=== PATIENT | male | born 1935 | race Caucasian/White ===

== ENCOUNTER → 2016-04-17 | Outpatient (CLI) | payer BC ==
[~2016-04-17] MED LIST: ACLI1AER3 INH; LEVA1.25 INH; NXM/40 PO; SILD100T PO; SILO8CAP PO; XPNIN INH
--- NOTE | 2016-04-17 12:29 | DIAGNOSTIC IMAGING REPORT ---
BILATERAL CAROTID DOPPLER STUDY HISTORY: Mental status change R41.3 Memory loss or impairment COMPARISON: 11/27/2013 TECHNIQUE: Real-time, grayscale, and color Doppler sonography of the carotid arteries was performed. Imaging reviewed in the transverse and longitudinal planes. All measurements were calculated based on NASCET criteria. FINDINGS: Antegrade flow is seen in the bilateral vertebral arteries. The brachial pressures are hemodynamically similar. Mild plaque formation bilaterally The peak systolic velocity within the right ICA is 86. The right systolic ratio is 1.0. The peak systolic velocity within the left ICA is 99. The left systolic ratio is 1.1. IMPRESSION: No hemodynamically significant stenosis seen within the carotid arteries. Mild plaque formation bilaterally Electronically signed by: Hood Zavala M.D. 04/17/2016 12:28 PM Dictated Date/Time: 04/17/2016 12:27 PM
== END | disposition home or self-care (01) ==
LOC: C.ULTR 11:38
PROVIDERS: ATTEND Nurse Practitioner
DX: R41.3 Other amnesia (principal); I65.23 Occlusion and stenosis of bilateral carotid arteries

== ENCOUNTER → 2016-04-18 | Outpatient (CLI) | payer BC ==
[2016-04-18 13:00] LABS: ALT/SGPT 19 U/L (12-78); AST/SGOT 18 U/L (15-37); BLOOD UREA NITROGEN 12 mg/dl (7-18); BUN/CREATININE RATIO 9.5 (10-20); CALCIUM 9.3 mg/dl (8.5-10.1); CARBON DIOXIDE 27 mmol/L (21-32); CHLORIDE 105 mmol/L (98-107); GLUCOSE 96 mg/dl (70-99); POTASSIUM 4.3 mmol/L (3.5-5.1); SODIUM 141 mmol/L (136-145)
[2016-04-18 13:02] LABS: ALB/GLOB RATIO 1.2 (0.9-2); ALKALINE PHOSPHATASE 62 U/L (45-117)
[2016-04-18 13:22] LABS: CHOLESTEROL/HDL RATIO 4.2; THYROID STIMULATING HORMONE 3.37 uIu/ml (0.300-4.500)
[2016-04-18 14:04] LABS: LYME DISEASE AB IGG NEG (NEG); LYME DISEASE AB IGM NEG (NEG)
== END | disposition home or self-care (01) ==
LOC: C.LABPVFM 10:20
PROVIDERS: ATTEND Nurse Practitioner
DX: R41.3 Other amnesia (principal); E55.9 Vitamin D deficiency, unspecified; E78.00 Pure hypercholesterolemia, unspecified

== ENCOUNTER → 2016-12-25 | Outpatient (CLI) | payer BC ==
[2016-12-25 18:14] LABS: BLOOD UREA NITROGEN 12 mg/dl (7-18); BUN/CREATININE RATIO 9.7 (10-20); CALCIUM 8.8 mg/dl (8.5-10.1); CARBON DIOXIDE 29 mmol/L (21-32); CHLORIDE 104 mmol/L (98-107); CREATININE 1.27 mg/dl (0.60-1.40); GLUCOSE 85 mg/dl (70-99); POTASSIUM 4.6 mmol/L (3.5-5.1); SODIUM 139 mmol/L (136-145)
== END | disposition home or self-care (01) ==
LOC: C.LABPVFM 13:33
PROVIDERS: ATTEND Nurse Practitioner
DX: R41.3 Other amnesia (principal); E55.9 Vitamin D deficiency, unspecified; R39.198 Other difficulties with micturition; J44.9 Chronic obstructive pulmonary disease, unspecified

== ENCOUNTER → 2017-05-22 | Day surgery (SDC) | payer BC ==
[~2017-05-22] VITALS: Ht 182.9 cm; Wt 84.0 kg
[~2017-05-22] MED LIST changes: +APOA1CAP; +CHOL1000 PO; +COEN150C PO; +DICY10CA12 PO; +DONE10TA12 PO; +FLUT1INH; +UMEC1INH INH
[2017-05-22 08:20] VITALS: BP 128/85; PULSE 64; TEMP 36.6; O2SAT 99; Ht 182.9 cm; Wt 84.0 kg
[2017-05-22 11:53] VITALS: BP 127/82; PULSE 68; TEMP 36.5; O2SAT 96
--- NOTE | 2017-05-30 10:32 | OPERATIVE REPORT ---
DATE OF OPERATION: 05/30/2017 PROCEDURE: Hydrogen breath test. INDICATION: The patient is having gas and bloating. DESCRIPTION OF PROCEDURE: The patient was brought to the medical treatment unit where he was administered 25 grams of lactose. Hydrogen levels and CO2 levels were measured from his exhaled breath at 60-minute intervals. His baseline hydrogen was 2, baseline CO2 was 3, CO2 level remained the same throughout the test. At 60 minutes, his hydrogen level was 16 and he was experiencing gas and cramps. At 120 minutes, his hydrogen level was 36, and at 180 minutes, it was 38 and he was having gas and cramps through the duration of that time. IMPRESSION: The patient's elevation in hydrogen and symptoms are diagnostic of LACTOSE INTOLERANCE. I attest to the content of the Intraoperative Record and any orders documented therein. Any exception s are noted below.
== END | disposition home or self-care (01) ==
LOC: C.MTU 08:09
PROVIDERS: ATTEND Internal Medicine Gastroenterology
DX: R14.3 Flatulence (principal); R14.0 Abdominal distension (gaseous)

== ENCOUNTER → 2017-05-23 | Outpatient (CLI) | payer BC ==
[~2017-05-23] MED LIST changes: -ACLI1AER3 INH; -LEVA1.25 INH; -SILD100T PO; -SILO8CAP PO
[2017-05-23 13:03] LABS: BLOOD UREA NITROGEN 14 mg/dl (7-18); CALCIUM 8.9 mg/dl (8.5-10.1); CARBON DIOXIDE 29 mmol/L (21-32); CREATININE 1.33 mg/dl (0.60-1.40); GLUCOSE 99 mg/dl (70-99); POTASSIUM 4.1 mmol/L (3.5-5.1); SODIUM 140 mmol/L (136-145)
== END | disposition home or self-care (01) ==
LOC: C.LABPVFM 11:02
PROVIDERS: ATTEND Nurse Practitioner
DX: R41.3 Other amnesia (principal)

== ENCOUNTER 2018-07-13 04:35 | Observation (INO) ==
--- OUTSIDE RECORDS SUMMARY | 2018-07-13 04:39 | External Medical Summary | Continuity of Care Document ---
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) Hypothyroidism (244.9) (E03.9) Laceration of finger (883.0) (S61.219A) Dementia (294.20) (F03.90) Asthma (493.90) (J45.909) Erectile dysfunction (607.84) (N52.9) Elevated glucose (790.29) (R73.09) Agitation (307.9) (R45.1) [place] (dyspnea on exertion) (786.09) (R06.09) GERD without esophagitis (530.81) (K21.9) Elevated cholesterol (272.0) (E78.00) Chest pain (786.50) (R07.9) Excessive gas (787.3) (R14.3) History of squamous cell carcinoma in situ of skin (V13.89) (Z86.008) Personal history of malignant melanoma of skin (V10.82) (Z85 .820) History of basal cell carcinoma (V10.83) (Z85.828) Actinic keratosis (702.0) (L57.0) Neoplasm of uncertain behavior of skin (238.2) (D48.5) Slowing of urinary stream (788.62) (R39.198) Chronic reflux esophagitis (530.11) (K21.0) Encounter for immunization (V03.89) (Z23) Vitamin D deficiency (268.9) (E55.9) Anemia (285.9) (D64.9) Chronic obstructive pulmonary disease (496) (J44.9) Sleep related hypoxia (327.24) (G47.34) Elevated serum creatinine (790.99) (R79.89) Cervicalgia (723.1) (M54.2) Allergies and Adverse Reactions Albuterol Sulfate NEBU (Allergy) Reactio n: Shortness of breath Levalbuterol HCl NEBU (Allergy) Onset: 24-Apr-2012 Status: Denied Medications NexIUM 20 MG Oral Capsule Delayed Release; TAKE 1 CAPSULE ON CE DAILY. Refills: 0 Levalbuterol HCl - 1.25 MG/3ML Inhalatio n Nebulization Solution; USE 1 VIAL 4 TIMES DAILY VIA NEBULIZER DX:493.9 SHON Norwood Start: 15-Apr-2012 Quantity: 525 Refills: 0 Levothyroxine Sodium 75 MCG Oral Tablet; TAKE 1 TABLET DAILY. NENO Galvan Start: 22-Mar-2018 Quantity: 30 Refills: 5 Trelegy Ellipta 100-62.5-25 MCG/INH Inha lation Aerosol Powder Breath Activated; 1 puff daily as needed. SHON Norwood Start: 26-Feb-2018 Quantity: 1 Refills: 0 Sertraline HCl - 50 MG Oral Tablet; TAKE 1 TABLET BY M OUT DAILY NENO Galvan Start: 22-May-2018 Quantity: 30 Refills: 5 Sildenafil Citrate 100 MG Oral Tablet; TAKE DIRECTED. NENO Polk Start: 18-Jan-2018 Quantity: 6 Refills: 1 Vitamin D 1000 UNIT Oral Tablet; TAKE 1 TABLET DAILY. Start: 29-Feb-2016 Quantity: 30 Refills: 5 Donepezil HCl - 10 MG Oral Tablet; Take 1 tablet by [facility] every day. NENO Galvan Start: 30-Aug-2015 Quantity: 30 Refills: 5 Procedures TSH With Reflex to T4 Date: 12-Jun-2018 History of Back Surgery Status: Complete d History of Foot Repair Status: Completed History of Knee Surgery Status: Complete d History of Kidney Surgery Status: Comple bonita Immunizations Pneumococcal polysaccharide vaccine, 23 valent On: 02-Feb-20 01 Pneumococcal polysaccharide vaccine, 23 valent On: 26-May-19 06 0:00 Influenza On: 28-Nov-2011 Lot #: [id number], [employer] Influenza On: 04-Dec-2012 11:48 Lot #: [id number], [employer] Pneumococcal polysaccharide vaccine, 23 valent On: 05-Dec-19 13 11:50 Lot #: [id number], [employer] Fluzone High-Dose Intramuscular Suspension On: 30-Dec-2013 1 5:39 Lot #: [id number], [employer] [id number] intramuscular suspension On: 03-Nov-2014 11:54 Lot #: [id number], Other (add annotation) Fluzone High-Dose Intramuscular Suspension On: 01-Dec-2014 1 1:15 Lot #: [id number], [employer] Fluzone High-Dose Intramuscular Suspension On: 29-Feb-2016 1 5:36 Lot #: [id number], [employer] Fluzone High-Dose Intramuscular Suspension On: 25-Dec-2016 1 3:30 Lot #: [id number], [employer] Tdap (Adacel) On: 26-Oct-2017 12:22 Lot #: [id number], [employer] Fluzone High-Dose Intramuscular Suspension On: 17-Jan-2018 15 :07 Lot #: [id number], [employer] Family History Unknown Family Member Family history of Heart Disease (V17.49) Status: Active Comments: Family History Family history of Cancer Status: Active Comments: Famil y History Family history of Prostate Cancer (V16.42) Status: Active Comments: Family History Brother Family history of Prostate Cancer (V16.42) Status: Active Social History - Smoking Status Former smoker Plan of Treatment Planned Encounters Appointment; Bryce Norwood PA-C Start: 26-Feb-2019 13:00 Re quest Planned Observations Planned Goals not documented Results No Known Results Results not documented Encounters Appointment; Felipa Galvan CRNP 22-Mar-2018 14:30 Encounter Diagnosis: Problem not documented Appointment; Bryce Norwood PA-C 26-Feb-2018 13:45 Encounter Diagnosis: Problem not documented Appointment; Felipa Galvan CRNP 17-Jan-2018 14:30 Encounter Diagnosis: Problem not documented Appointment; Felipa Galvan CRNP 26-Oct-2017 11:30 Encounter Diagnosis: Problem not documented Appointment; Igor Treadwell M.D. 19-Oct-2017 11:15 Encounter Diagnosis: Problem not documented Appointment; Gloria Lambert CRNP 22-Aug-2017 14:00 Encounter Diagnosis: Problem not documented Appointment; Glenys Judge M.D. 03-Jul-2017 14:00 Encounter Diagnosis: Problem not documented Appointment; Felipa Galvan CRNP 25-May-2017 13:00 Encounter Diagnosis: Problem not documented Appointment; Bryce Norwood PA-C 10-Jan-2017 13:00 Encounter Diagnosis: Problem not documented Appointment; Felipa Galvan CRNP 25-Dec-2016 13:00 Encounter Diagnosis: Problem not documented Appointment; Hood John M.D. 25-Dec-2016 10:30 Encounter Diagnosis: Problem not documented Appointment; Bryce Norwood PA-C 29-Nov-2016 14:00 Encounter Diagnosis: Problem not documented Appointment; Sam Smith M.D. 27-Nov-2016 13:45 Encounter Diagnosis: Problem not documented Appointment; Felipa Galvan CRNP 31-Aug-2016 11:00 Encounter Diagnosis: Problem not documented Appointment; Bryce Norwood PA-C 26-Feb-2019 13:00 Encounter Diagnosis: Problem not documented
[2018-07-13] MEDS ORDERED: FAMOTIDINE 20MG/5ML IV PUSH IV STA (05:01)
[2018-07-13 05:16] LABS: Basophils # (auto) 0.06 K/uL (0-0.2); Basophils % (auto) 0.9 %; Eosinophils # (auto) 0.06 K/uL (0-0.5); Eosinophils % (auto) 0.9 %; Hematocrit (blood only) 37.7 % (42-52); Hemoglobin 12.8 g/dL (14.0-18.0); Immature Granulocytes # (auto) 0.02 K/uL (0.00-0.02); Immature Granulocytes % (auto) 0.3 %; Lymphocytes # (auto) 1.09 K/uL (1.2-3.4); Lymphocytes % (auto) 15.9 %; Mean Corpuscular Volume 96.9 fL (80-100); Mean Platelet Volume 11.7 fL (7.4-10.4); Monocytes # (auto) 1.08 K/uL (0.11-0.59); Monocytes % (auto) 15.8 %; Neutrophils # (auto) 4.54 K/uL (1.4-6.5); Neutrophils % (auto) 66.2 %; Platelet Count 165 K/uL (130-400); RDW Coefficient of Variation 13.5 % (11.5-14.5); RDW Standard Deviation 47.2 fL (36.4-46.3); Red Blood Count 3.89 M/uL (4.7-6.1); White Blood Count 6.85 K/uL (4.8-10.8)
[2018-07-13 05:28] LABS: Partial Thromboplastin Ratio 0.9; Partial Thromboplastin Time 25.5 Seconds (21.0-31.0); Prothrombin Time 10.3 Seconds (9.0-12.0)
[2018-07-13 05:33] LABS: Alanine Aminotransferase 34 U/L (12-78); Albumin Level 3.8 gm/dl (3.4-5.0); Aspartate Aminotransferase 47 U/L (15-37); BUN Creatinine Ratio 18.7 (10-20); Bilirubin Direct 0.1 mg/dl (0-0.2); Blood Urea Nitrogen 24 mg/dl (7-18); Calcium 8.5 mg/dl (8.5-10.1); Carbon Dioxide 29 mmol/L (21-32); Chloride 100 mmol/L (98-107); Est GFR (African American) 58.2; Est GFR (Non-African American) 50.2; Glucose 101 mg/dl (70-99); Potassium 3.8 mmol/L (3.5-5.1); Sodium 132 mmol/L (136-145)
[2018-07-13 05:38] LABS: Alkaline Phosphatase 62 U/L (45-117); Bilirubin,Total 0.5 mg/dl (0.2-1); Total Protein 7.1 gm/dl (6.4-8.2); Troponin I < 0.015 ng/ml (0-0.045)
[2018-07-13] MEDS ORDERED: ONDANSETRON INJ 2 MG/ML 2 ML VIAL IV STA (05:42)
[2018-07-13 05:44] LABS: Appearance Urine Clear (Clear); Bilirubin Urine Negative (Negative); Blood Urine Negative (Negative); Color Urine Yellow; Glucose Urine UA Negative (Negative); Ketones Urine Negative (Negative); Leukocyte Esterase Urine Negative (Negative); Nitrite Urine Negative (Negative); Protein Urine Negative (Negative); Urobilinogen Urine Negative (Negative)
[2018-07-13] MEDS ORDERED: IOVERSOL 100ml IV PRN (06:08)
[2018-07-13] MEDS ORDERED: PANTOprazole 80 MG in DEXTROSE 5% 100 ML IV ONE (07:15)
--- NOTE | 2018-07-13 07:51 | CT Scan Report ---
CT OF THE CHEST WITH IV CONTRAST CLINICAL HISTORY: left chest trauma, bruising COMPARISON STUDY: Chest CT November 27, 2013. Chest radiograph January 07, 2018. TECHNIQUE: Following IV administration of 94 mL of Optiray-320, helical axial images of the chest we re obtained. Sagittal and coronal reconstructions were viewed as well as maximal intensity projectio ns on an independent 3-D workstation. Automated exposure control was utilized for the study. A dose lowering technique was utilized adhering to the principles of ALARA. CT DOSE: 726.73 mGy.cm FINDINGS: There is no evidence for traumatic injury to the thoracic aorta. The heart is mildly enlar ged. There is moderate coronary artery calcification. Moderate circumferential wall thickening of the mid to distal thoracic esophagus is noted. A small hiatal hernia is noted. There is no pneumothorax or pleural effusion. Lungs are suboptimally assessed given motion. There is mild subpleural reticulat ion. No acute rib or thoracic spine fracture is identified. No pulmonary contusion is present. IMPRESSION: 1. No acute traumatic findings within the chest. 2. Circumferential wall thickening of the esophagus which favors esophagitis. Small hiatal hernia. Electronically signed by: Magan Yoon M.D. 07/13/2018 7:50 AM
--- NOTE | 2018-07-13 07:57 | CT Scan Report ---
CT OF THE ABDOMEN AND PELVIS WITH CONTRAST CLINICAL HISTORY: trauma, GI bleed COMPARISON STUDY: CT of the abdomen and pelvis January 07, 2018. TECHNIQUE: Following IV administration of 94 mL of Optiray-320, axial images of the abdomen and pelvi s were obtained from the lung bases to the proximal femurs. Images were reviewed in the axial, sagitt al, and coronal planes. IV contrast was administered without complication. Automated exposure contro l was utilized for the study. A dose lowering technique was utilized adhering to the principles of A TERESA. FINDINGS: No hemoperitoneum or pneumoperitoneum is present. There are multiple hepatic cysts. The spl een, adrenal glands, kidneys and pancreas are unremarkable. There is no biliary or pancreatic ductal dilatation. A 4.3 x 3.7 cm infrarenal abdominal aortic aneurysm is similar to CT of January 07, 2018. There is no evidence for rupture. Sensitivity for detection of mucosal lesions is diminished given C T technique. This colonic diverticulosis without evidence for acute diverticulitis. There is no evide nce for a bowel obstruction. There are no acute pelvic or lumbar spine fractures. IMPRESSION: 1. No acute findings within the abdomen or pelvis. 2. No significant change in a 4.3 x 3.7 cm infrarenal abdominal aortic aneurysm since CT of December 112017. No rupture. 3. Colonic diverticulosis without evidence for acute diverticulitis. Electronically signed by: Magan Yoon M.D. 07/13/2018 7:55 AM
--- NOTE | 2018-07-13 08:48 | Emergency Department Note ---
Entered by Julian Lind acting as a scribe for ED Provider Note Name: Balaji Garrison Age: 83 Arrives Via: Informant: Patient CC: Bloody vomit HPI: A male arrives for evaluation of an episode of bloody vomit occurring 2 hours ago. The patient states he was on his tractor 5 days ago when it rolled over on top of him. He notes he has some bruises from that incident. The patient states he woke up last night and started vomiting dark vomit. The patient states he was vomiting for 2 hours and it was black right away. He notes he had a couple episodes of black stool for the past couple days. The patient states he takes Nexium. The patient denies abdominal pain, hitting his head, drinking alc ohol, taking blood thinners, headaches, neck pain, and taking ibuprofen or Aleve. ROS: See above HPI for pertinent positives & negatives. A total of 10 systems reviewed and were otherwise negative. Past Medical History: Diverticulitis Past Surgical History: No pertinent surgical history Family History: Non-contributory family history Social History: Former smoker Home Medications: See below. Allergies Lactose Physical: Vitals: BP: 162/69. P: 63. R: 18. T: 97.5. O2: 96 Exam: GENERAL: Patient is mildly anxious appearing and in minimal distress. EYES: No scleral icterus, unremarkable pupils. ENT: Mucous membranes moist, no nasal congestion. NECK: No masses appreciated, no meningismus, trachea is midline. RESPIRATORY: No dyspnea. Clear to auscultation and equal bilaterally. No wheeze, no rhonchi. CARDIOVASCULAR: Regular rate and rhythm. No murmurs, rubs, gallops appreciated. GASTROINTESTINAL: Abdomen soft, non-tender, no peritonitis. Bowel sounds positive. No masses appreciated. BACK: No midline tenderness, no CVA tenderness RECTAL: Dark stool. Heme positive. No gross blood. EXTREMITIES: Normal motion all extremities, no cyanosis, no edema. NEUROLOGIC: Alert and oriented, no acute motor or sensory deficits, no focal weakness, cranial nerves grossly intact. SKIN: No rash, no jaundice, no diaphoresis. Many areas of aging bruising. Worse over bilateral legs. ED Course: Prior Medical Record, Triage/Nursing Notes, Medications, Allergies reviewed by Me Vital Signs: reviewed and remarkable for wnl Labs: Reviewed and remarkable for elevated BUN Interventions: Saline Lock, Pepcid 20mg IV, Protonix 80mg IV Imaging: [facility] Radiologist interpretation reviewed by me: "CT CHEST With Contrast: Esophageal wall thickening suggesting esophagitis. Normal caliber thoracic aorta and main pulmonary artery. Mild cardiomegaly. Coronary artery atherosclerosis. No pericardial effusion. No airspace consolidation, pleural effusion, or pneumothorax. No acute osseous findings. CT ABDOMEN & PELVIS With Contrast: Hepatic cysts. Gallbladder, spleen, pancreas, and adrenal glands are unremarkable. No hydronephrosis. Aortoiliac atherosclerosis with infrarenal abdominal aortic aneurysm measuring 3.1 x 4.1 cm. Normal appendix. No bowel obstruction. Colonic diverticulosis without acute diverticulitis. Urinary bladder and prostate are unremarkable. No acute osseous findings. Radiologist: Cole Morrison M.D." Reassessments/Times: 0454: The patient was evaluated in room B8, and a complete history and physical examination were performed. 0542: The patient is becoming more nauseous. 0715: I spoke to the hospitalist. He will evaluate the patient for further management. Blood pressure: Elevated - Referred to PCP - Depue to be Situation. Normal. Disposition: Hospitalization Differentials: Etiologies such as diverticulosis, AVM, coagulopathy, colitis, inflammatory bowel disease, malignancy, Neva-Bneder tear, esophagitis, peptic ulcer disease, variceal bleed, gastritis, epistaxis, fissure, hemorrhoids, as well as others were entertained. Medical Decision Making: Pleasant 83 yr old male with mild dementia who vomited black blood this evening. Notes a few days black stools. BUN elevated. HGB OK. VItals OK. No abdomina l TTP, however with recent trauma and vomiting blood felt CT imaging necessary and given bruising left chest will get imaging of ribs as well with ct. Fortunately no evidence acute trauma on imaging. There is esophagitis noted. I suspect this is upper GI bleed. Rectal exam with dark brown mildly heme positive stool without significant blood. Hemodynamically stable. This is not a good candidate for close outpatient monitoring given mild dementia, age, and significant distance to ED. Impression: Acute Upper GI Bleed Esophagitis Contusion of Multiple Sites Bo Ortiz MD The scribe's documentation has been prepared under my direction and personally reviewed by me in its entirety. I confirm that the note above accurately reflects all work, treatment, procedures, and medical decision making performed by me. Impression & Plan Acute upper GI bleed, Esophagitis, Contusion of multiple sites Past Med/Surg History Medical History Diverticulitis (Acute) Family History Other No pertinent family history Social History Preferred Language: Cook Islander Feels Safe at Home: Yes Smoking Status: Former smoker Results & Data Vital Signs Vital Signs - 24 hr 07/13/18 04:41 07/13/18 06:15 07/13/18 06:59 Temperature 36.4 C L Temperature Source Oral Sepsis Recent Fever Within 48 Hours No Sepsis Action Taken by Nursing No Action Required Pulse Rate 63 Pulse Rate [Right Finger] 58 L Respiratory Rate 18 18 16 Respiratory Effort / Characteristics Non-Labored Non-Labored Respiratory Depth Normal Normal Respiratory Pattern Regular Blood Pressure 162/69 H Blood Pressure [Left Arm] 142/60 H 119/70 Blood Pressure Mean 100 Blood Pressure Mean [Left Arm] 87 86 Blood Pressure Position [Left Arm] Sitting Pulse Oximetry 96 93 95 Oxygen Delivery Method Room Air Room Air Room Air 07/13/18 08:36 Temperature Temperature Source Sepsis Recent Fever Within 48 Hours Sepsis Action Taken by Nursing Pulse Rate Pulse Rate [Right Finger] 64 Respiratory Rate 16 Respiratory Effort / Characteristics Respiratory Depth Respiratory Pattern Blood Pressure Blood Pressure [Left Arm] 162/74 H Blood Pressure Mean Blood Pressure Mean [Left Arm] 103 Blood Pressure Position [Left Arm] Pulse Oximetry 97 Oxygen Delivery Method Room Air Laboratory Data Result diagrams: 07/13/18 05:07 07/13/18 05:07 Lab Results 07/13/18 07/13/18 07/13/18 Range/Units 05:07 05:07 05:07 WBC 6.85 (4.8-10.8) K/uL RBC 3.89 L (4.7-6.1) M/uL Hgb 12.8 L (14.0-18.0) g/dL Hct 37.7 L (42-52) % MCV 96.9 (80-100) fL MCH 32.9 (25-34) pg MCHC 34.0 (32-36) g/dL RDW Std Deviation 47.2 H (36.4-46.3) fL RDW Coeff of Bek[place] 13.5 (11.5-14.5) % Plt Count 165 (130-400) K/uL MPV 11.7 H (7.4-10.4) fL Immature Gran % (Auto) 0.3 % Neut % (Auto) 66.2 % Lymph % (Auto) 15.9 % [place] % (Auto) 15.8 % Eos % (Auto) 0.9 % Baso % (Auto) 0.9 % Immature Gran # (Auto) 0.02 (0.00-0.02) K/uL Neut # (Auto) 4.54 (1.4-6.5) K/uL Lymph # (Auto) 1.09 L (1.2-3.4) K/uL [place] # (Auto) 1.08 H (0.11-0.59) K/uL Eos # (Auto) 0.06 (0-0.5) K/uL Baso # (Auto) 0.06 (0-0.2) K/uL PT 10.3 (9.0-12.0) Seconds INR 1.0 (0.9-1.1) APTT 25.5 (21.0-31.0) Seconds PTT Ratio 0.9 Sodium 132 L (136-145) mmol/L Potassium 3.8 (3.5-5.1) mmol/L Chloride 100 (98-107) mmol/L Carbon Dioxide 29 (21-32) mmol/L Anion Gap 3.0 (3-11) BUN 24 H (7-18) mg/dl Creatinine 1.29 (0.6-1.4) mg/dl Est Cr Clr Drug Dosing 46.0 ml/min Est GFR ( Amer) 58.2 Est GFR (Non-Af Amer) 50.2 BUN/Creatinine Ratio 18.7 (10-20) Glucose 101 H (70-99) mg/dl Calcium 8.5 (8.5-10.1) mg/dl Total Bilirubin 0.5 (0.2-1) mg/dl Direct Bilirubin 0.1 (0-0.2) mg/dl AST 47 H (15-37) U/L ALT 34 (12-78) U/L Alkaline Phosphatase 62 (45-117) U/L Troponin I < 0.015 (0-0.045) ng/ml Total Protein 7.1 (6.4-8.2) gm/dl Albumin 3.8 (3.4-5.0) gm/dl Lipase 265 (73-393) U/L Urine Color Urine Appearance (Clear) Urine pH (4.5-7.5) Ur Specific [place] (1.000-1.030) Urine Protein (Negative) Urine Glucose (UA) (Negative) Urine Ketones (Negative) Urine Blood (Negative) Urine Nitrite (Negative) Urine Bilirubin (Negative) Urine Urobilinogen (Negative) Ur Leukocyte Esterase (Negative) 07/13/18 Range/Units 05:19 WBC (4.8-10.8) K/uL RBC (4.7-6.1) M/uL Hgb (14.0-18.0) g/dL Hct (42-52) % MCV (80-100) fL MCH (25-34) pg MCHC (32-36) g/dL RDW Std Deviation (36.4-46.3) fL RDW Coeff of Bekah (11.5-14.5) % Plt Count (130-400) K/uL MPV (7.4-10.4) fL Immature Gran % (Auto) % Neut % (Auto) % Lymph % (Auto) % [place] % (Auto) % Eos % (Auto) % Baso % (Auto) % Immature Gran # (Auto) (0.00-0.02) K/uL Neut # (Auto) (1.4-6.5) K/uL Lymph # (Auto) (1.2-3.4) K/uL [place] # (Auto) (0.11-0.59) K/uL Eos # (Auto) (0-0.5) K/uL Baso # (Auto) (0-0.2) K/uL PT (9.0-12.0) Seconds INR (0.9-1.1) APTT (21.0-31.0) Seconds PTT Ratio Sodium (136-145) mmol/L Potassium (3.5-5.1) mmol/L Chloride (98-107) mmol/L Carbon Dioxide (21-32) mmol/L Anion Gap (3-11) BUN (7-18) mg/dl Creatinine (0.6-1.4) mg/dl Est Cr Clr Drug Dosing ml/min Est GFR ( Amer) Est GFR (Non-Af Amer) BUN/Creatinine Ratio (10-20) Glucose (70-99) mg/dl Calcium (8.5-10.1) mg/dl Total Bilirubin (0.2-1) mg/dl Direct Bilirubin (0-0.2) mg/dl AST (15-37) U/L ALT (12-78) U/L Alkaline Phosphatase (45-117) U/L Troponin I (0-0.045) ng/ml Total Protein (6.4-8.2) gm/dl Albumin (3.4-5.0) gm/dl Lipase (73-393) U/L Urine Color Yellow Urine Appearance Clear (Clear) Urine pH 7.0 (4.5-7.5) Ur Specific [place] 1.010 (1.000-1.030) Urine Protein Negative (Negative) Urine Glucose (UA) Negative (Negative) Urine Ketones Negative (Negative) Urine Blood Negative (Negative) Urine Nitrite Negative (Negative) Urine Bilirubin Negative (Negative) Urine Urobilinogen Negative (Negative) Ur Leukocyte Esterase Negative (Negative) Administered Medications Ioversol (Optiray 320 100ml) 94 ml IV ONCE PRN PRN Reason: Interaction Checking Stop: 07/17/18 06:07 Last Admin: 07/13/18 06:08 Dose: 94 ml Documented by: [id number] Discontinued Medications Famotidine (Pepcid 20mg Iv Push) 20 mg IV ONE STA Stop: 07/13/18 05:02 Last Admin: 07/13/18 05:25 Dose: 20 mg Documented by: [id number] Pantoprazole Sodium 80 mg/ (Dextrose) 120 mls @ 480 mls/hr IV NOW ONE Stop: 07/13/18 07:29 Last Admin: 07/13/18 08:38 Dose: 480 mls/hr Documented by: [id number] Ondansetron HCl (Zofran) 4 mg IV NOW STA Stop: 07/13/18 05:43 Last Admin: 07/13/18 05:50 Dose: 4 mg Documented by: [id number] Discharge Plan Visit Data Chief Complaint: GI Assessment Stated Complaint: SPITTING UP BLOOD, BLACK ED Provider: Bo Ortiz Discharge Problem: Acute upper GI bleed, Esophagitis, Contusion of multiple sites Forms Stand Alone Forms: [facility] Prescriptions Prescriptions: No Action donepezil 10 mg tablet 10 mg PO DAILY RF: 0 sildenafil 100 mg tablet 100 mg PO DIRECTED PRN (Reason: Sexual Activity) RF: 0 esomeprazole magnesium 40 mg capsule,delayed release(DR/EC) 40 mg PO DAILY RF: 0 levalbuterol HCl 1.25 mg/3 mL solution for nebulization 3 ml Inhalation QID PRN (Reason: Shortness Of Breath) RF: 0 sertraline 50 mg tablet 50 mg PO DAILY RF: 0 levalbuterol tartrate [Xopenex HFA] 45 mcg/actuation Hfa Aerosol Inhaler 2 inh INHALATION Q4 PRN (Reason: Shortness Of Breath) RF: 0 cholecalciferol (vitamin D3) [Vitamin D3] 1,000 unit Tablet 1,000 unit PO DAILY RF: 0 Breo Ellipta 200-25 mcg/dose Blister With Device 1 inh INHALATION DAILY PRN (Reason: Shortness Of Breath Or Wheezing) RF: 0 The scribe's documentation has been prepared under my direction and personally reviewed by me in its entirety. I confirm that the note above accurately reflects all work, treatment, procedures, and medical decision making performed by me.
[2018-07-13] MEDS ORDERED: LEVALBUTEROL 0.31MG/3 ML VIAL NEB PRN (09:41)
[2018-07-13] MEDS ORDERED: ACETAMINOPHEN 325 MG TAB PO PRN (09:41)
[2018-07-13] MEDS: DONEPEZIL HCL 10 MG TAB PO SCH (10:16)
[2018-07-13] MEDS: SERTRALINE HCL 50 MG TABLET PO SCH (10:16)
--- NOTE | 2018-07-13 13:54 | History & Physical Report ---
Date of Service July 13, 2018 Assessment & Plan (1) Acute upper GI bleed: High suspicion given his coffee ground emesis and melena. Hgb was 12.8 on admission with baseline ~14. CT chest on 07/13 showed esophagitis. - Trend hgb - Monitor emesis and BMs - PPI gtt - GI consult (2) Contusion of multiple sites: Hit his left leg in a mower accident. Able to bear weight. - Monitor bruising (3) COPD (chronic obstructive pulmonary disease): No shortness of breath. No wheezing. - Continue home meds - Xopenex PRN (4) Dementia: No exact diagnosis. Seems to have moderate dementia with trouble recalling events from even a week ago, but is very pleasant, alert, and conversant. - Monitor (5) Diverticulitis: Prior episode in 02/2018. No lower bright red blood, no abdominal pain. Low concern for acute issue. - Monitor (6) DVT prophylaxis: SCDs - Low risk per admission calculator & he is bleeding, so no chemoprophylaxis History of Present Illness Primary Care Provider: NENO Nowak 83-year-old male with a history of dementia, COPD who presents with likely upper GI bleed. The patient's moderate dementia limits his history somewhat, but his is able to corroborate some of his history. Per the patient, approximately 1 week ago he had 1-2 melanotic stools. The patient cannot really describe volume of the stools, or whether this was a single episode of versus over several days. As best as I can ascertain, his stools return to normal for several days, then became melenic again 3 to 4 days ago. At approximately 1 AM this morning, the patient experienced several episodes of coffee-ground emesis. After several episodes, his emesis became clear again. This part is confirmed by the as well. Due to the coffee-ground emesis, the patient and his presented to the emergency department. At present the patient feels back to baseline. He denies any lightheadedness, dizziness, syncope, chest pain, abdominal pain, nausea, vomiting, shortness of breath, fevers, chills, melena, dysuria, polyuria, or other symptoms. In the emergency department, the ED provider found fecal occult stool. Allergies Allergy/AdvReac Type Severity Reaction Status Date / Time lactose Allergy Unknown Unverified 07/13/18 05:58 Home Medications Home Medications Medication Instructions Recorded Confirmed Type cholecalciferol (vitamin D3) 1,000 unit PO DAILY 01/07/18 07/13/18 History [Vitamin D3] donepezil 10 mg PO DAILY 01/07/18 07/13/18 History esomeprazole magnesium 40 mg PO DAILY 01/07/18 07/13/18 History fluticasone furoate-vilanterol 1 inh INHALATION DAILY PRN 01/07/18 07/13/18 History [Breo Ellipta] levalbuterol HCl 3 ml INHALATION QID PRN 01/07/18 07/13/18 History levalbuterol tartrate [Xopenex HFA] 2 inh INHALATION Q4 PRN 01/07/18 07/13/18 History sertraline 50 mg PO DAILY 01/07/18 07/13/18 History sildenafil 100 mg PO DIRECTED PRN 01/07/18 07/13/18 History Past Med/Surg History Medical History COPD (chronic obstructive pulmonary disease) Dementia Kidney stone Diverticulitis (Acute) Family History Mother Stroke Social History Preferred Language: Yi Communication Ability: Effective 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 Beliefs That Will Affect Care: None Current Living Situation: Spouse Other Information That Helps Us Care for You: No Feels Safe at Home: Yes Safety Concerns: Feels Safe At This Time Smoking Status: Former smoker Tobacco Type: smokeless tobacco Do You Dip or Chew Tobacco: Yes Hx Alcohol Use: No Hx Substance Use: No Review of Systems Review of Systems: All systems reviewed & are unremarkable except as noted in HPI & below Physical Exam Constitutional: WD/WN, vitals as above + acute distress and cooperative Eyes: EOM intact bilaterally; no conjunctival abnormality ENMT: external ear and nose normal, oropharynx normal Neck: trachea midline, no thyromegaly normal visual inspection Respiratory: normal respiratory effort, lungs clear to auscultation no respiratory distress Cardiovascular: RRR, no murmur, no edema Gastrointestinal (Abdomen): Inspection/Auscultation: abdomen normal to inspection; abdomen not distended Musculoskeletal: no cyanosis or clubbing, extremities motor strength 5/5 Skin: no rashes, warm and dry Neurologic: moves all extremities and awake Psychiatric: Orientation: alert, oriented to person and cooperative Cognition: + recent memory not intact Judgement: + limited judgement Results & Data Vital Signs (Past 12 Hours) Vital Signs Temp Pulse Pulse Resp BP BP BP 07/13/18 09:48 36.4 C L 60 16 137/71 07/13/18 09:41 36.3 C L 52 L 16 151/73 H 07/13/18 08:36 64 16 162/74 H 07/13/18 06:59 16 119/70 07/13/18 06:15 58 L 18 142/60 H 07/13/18 04:41 36.4 C L 63 18 162/69 H Pulse Ox 07/13/18 09:48 07/13/18 09:41 100 07/13/18 08:36 97 07/13/18 06:59 95 07/13/18 06:15 93 07/13/18 04:41 96
--- NOTE | 2018-07-13 14:01 | Consultation Report ---
DATE OF CONSULTATION: 07/13/2018 GASTROENTEROLOGY CONSULT NOTE REFERRED BY: Dr. Nixon Smith. I was asked by Dr. Smith to consult on this gentleman for evaluation of possible GI bleeding. HISTORY OF PRESENT ILLNESS: The patient is an 83-year-old who was involved in a tractor accident. He had rolled over his tractor several days ago. He has had some bruising, but he presented to the Emergency Room with reports of possible dark stools. He denies any vomiting, though there was report in one of the Emergency Room notes about hematemesis, but he denies this. He denies any nosebleeds. He states that he had some dark stools and he was found to have heme-positive stool in the ER. He denies any previous issues with GI bleeding. He states that he has not been taking any aspirin products. He denies any dysphagia. He has had some left-sided abdominal pain mainly by his ribs and he relates this to happening after his tractor accident. He has a previous history of diverticulitis, but he feels that he has not had any issues with this recently. PAST MEDICAL HISTORY: I reviewed his medical records and his past medical history and his past medical history is significant for what is already mentioned. MEDICATIONS: His medications at home include numerous vitamins, donepezil, Nexium, inhalers p.r.n., sertraline. ALLERGIES: HE STATES HE IS ALLERGIC TO LACTOSE. FAMILY HISTORY: Denies any family history of gastrointestinal disease. SOCIAL HISTORY: Significant for being a former smoker and he does not drink alcohol. REVIEW OF SYSTEMS: As above, otherwise he denies any change in vision or hearing. He denies any history of seizures. He has had no heat or cold intolerance. He denies any dysuria. He denies any hematuria. He has had no recent chest pain, shortness of breath or productive cough. He denies any history of jaundice. He denies any joint swelling except for some bruising from his recent tractor accident. He denies any headaches or change in mental status. He has had no change in mood. He denies any fevers. PHYSICAL EXAMINATION: GENERAL: Reveals a pleasant gentleman in no distress. VITAL SIGNS: Most recent blood pressure is 137/71, pulse is 60, temperature is 36.4. SKIN: Anicteric. HEENT: Eyes show anicteric sclerae. Mouth is clear of lesions. NECK: Supple, no adenopathy. CHEST: Has some scattered rhonchi, but is otherwise clear. HEART: Regular. ABDOMEN: Soft with good bowel sounds. There is no organomegaly, masses, rebound tenderness noted. EXTREMITIES: Warm with good distal pulses. He has some bruising as expected from his injury. NEUROLOGIC: He is alert and oriented x3 and neurologically grossly intact. LABORATORY DATA: Show a recent hemoglobin of 12.8, platelet count of 165,000, white blood cell count of 6.8. CT of the abdomen and pelvis revealed no acute findings. IMPRESSION: An 83-year-old gentleman with some dark stools that were heme positive and recent injury from lawn tractor accident. I recommend following his hemoglobin. He does not appear to be having an aggressive GI bleed and I do not think at this point endoscopy is indicated. Follow his hemoglobin, keep him on his proton pump inhibitor and advance diet. If his hemoglobin remains stable, I would consider discharge from a GI perspective. JOE
[2018-07-14 00:45] VITALS: O2SAT 98
[2018-07-14] MEDS ORDERED: LORazepam 0.5 MG TAB PO STA (01:21)
[2018-07-14] MEDS ORDERED: OLANZAPINE ZYDIS 5 MG ORALLY DIS. TAB PO ONE (01:30)
[2018-07-14 06:38] LABS: BUN Creatinine Ratio 13.1 (10-20); Calcium 8.6 mg/dl (8.5-10.1); Est GFR (African American) 53.6; Est GFR (Non-African American) 46.3; Magnesium 2.3 mg/dl (1.8-2.4)
[2018-07-14] MEDS ORDERED: HALOPERIDOL LACTATE 5 MG/ML 1 ML VIAL IM STA (06:38)
[2018-07-14] MEDS ORDERED: HALOPERIDOL LACTATE 5 MG/ML 1 ML VIAL ONE (06:39)
[2018-07-14 08:13] VITALS: PULSE 90; TEMP 97.7
[2018-07-14] MEDS: SERTRALINE HCL 50 MG TABLET PO SCH (08:18)
[2018-07-14] MEDS: DONEPEZIL HCL 10 MG TAB PO SCH (08:18)
[2018-07-14 10:00] LABS: Hematocrit (blood only) 36.3 % (42-52); Hemoglobin 11.9 g/dL (14.0-18.0); Mean Corpuscular Hgb Conc 32.8 g/dL (32-36); Mean Corpuscular Volume 97.1 fL (80-100); Mean Platelet Volume 11.6 fL (7.4-10.4); Platelet Count 149 K/uL (130-400); RDW Coefficient of Variation 13.6 % (11.5-14.5); RDW Standard Deviation 47.9 fL (36.4-46.3); Red Blood Count 3.74 M/uL (4.7-6.1); White Blood Count 4.45 K/uL (4.8-10.8)
[2018-07-14 11:15] VITALS: BP 165/84
--- NOTE | 2018-07-14 18:39 | Discharge Summary ---
Date of Service July 14, 2018 Admission HPI Per Admitting Provider 83-year-old male with a history of dementia, COPD who presents with likely upper GI bleed. The patient's moderate dementia limits his history somewhat, but his is able to corroborate some of his history. Per the patient, approximately 1 week ago he had 1-2 melanotic stools. The patient cannot really describe volume of the stools, or whether this was a single episode of versus over several days. As best as I can ascertain, his stools return to normal for several days, then became melenic again 3 to 4 days ago. At approximately 1 AM this morning, the patient experienced several episodes of coffee-ground emesis. After several episodes, his emesis became clear again. This part is confirmed by the as well. Due to the coffee-ground emesis, the patient and his presented to the emergency department. At present the patient feels back to baseline. He denies any lightheadedness, dizziness, syncope, chest pain, abdominal pain, nausea, vomiting, shortness of breath, fevers, chills, melena, dysuria, polyuria, or other symptoms. In the emergency department, the ED provider found fecal occult stool. Principal Diagnosis Possible upper GI bleed Discharge Exam Constitutional WD/WN, vitals as above + acute distress and cooperative Eyes EOM intact bilaterally; no conjunctival abnormality ENMT external ear and nose normal, oropharynx normal Neck trachea midline, no thyromegaly normal visual inspection Respiratory normal respiratory effort, lungs clear to auscultation no respiratory distress Cardiovascular RRR, no murmur, no edema Gastrointestinal (Abdomen) Inspection/Auscultation: abdomen normal to inspection; abdomen not distended Musculoskeletal no cyanosis or clubbing, extremities motor strength 5/5 Skin no rashes, warm and dry Neurologic moves all extremities and awake Psychiatric Orientation: alert, oriented to person and cooperative Cognition: + recent memory not intact Judgement: + limited judgement Discharge Data Allergies Allergy/AdvReac Type Severity Reaction Status Date / Time lactose Allergy Unknown Unverified 07/13/18 05:58 Consultations 07/13/18 07:14 ED Decision to Admit Stat 07/13/18 09:41 Consult Gastroenterology Routine Ordered Studies 07/13/18 05:01 CT abd pelvis IV con only Urgent CT chest w con Urgent Hospital Course (1) Acute upper GI bleed: High suspicion given his coffee ground emesis and melena. Hgb was 12.8 on admission with baseline ~14. CT chest on 07/13 showed esophagitis. - Hemoglobin stayed fairly stable with drop only from 13 -> 12 in the 24 hours he was here. No further emesis or melena. GI saw patient and felt EGD was not needed. Patient decided to leave on 07/14. (2) Contusion of multiple sites: Hit his left leg in a mower accident. Able to bear weight. - Monitor bruising (3) COPD (chronic obstructive pulmonary disease): No shortness of breath. No wheezing. - Continue home meds - Xopenex PRN (4) Dementia: No exact diagnosis. Seems to have moderate dementia with trouble recalling events from even a week ago, but is very pleasant, alert, and conversant. - He had major issues with sundowning. Per , he is not willing to have testing because he is afraid someone will take his license. At times, he becomes "agitated" per her. He is also very private and will not allow anyone to come to the home. I expressed my significant concerns about his situation, though she did not feel there was much she could do in this regards. I will have our office contact [facility] about his license as he still drives. (5) Diverticulitis: Prior episode in 02/2018. No lower bright red blood, no abdominal pain. Low concern for acute issue. - Monitor (6) DVT prophylaxis: SCDs - Low risk per admission calculator & he is bleeding, so no chemoprophylaxis Total Time Total Time Spent Total Time Spent (In Minutes): 25 Total Time Includes: Examination of the Patient, Discharge Planning and Other Discharge Plan Discharge Items Patient Disposition: Home - Self-Care Reason For Visit: UPPER GI BLEED Discharge Diagnosis: Possible GI bleeding Discharge Goals: Decrease discomfort and Diagnostic testing Activity: Resume your previous activity Non-emergency contact: Primary Care Provider Call non-emergency contact if: your symptoms worsen, your pain is not controlled and your temperature is above 100.5 Follow-up/Referrals: Felipa Cabrales CRNP [Primary Care Provider] - Diet: Regular Addtl Provider Instructions: Mr. Garrison, You were admitted for a possible bleed in your stomach or intestine. You threw up coffee ground type material and also had dark stools which are both concerning for this. Your blood counts stayed mostly stable (down 1 mg/dL from 13 to 12), and the GI doctors did not think you needed a scope (camera) to look in the stomach. On the day of discharge, you wanted to leave the hospital, and we discharged you. Please follow up with Ms. Cabrales and have her check your blood count. Lindsay may refer you to a GI doctor as an outpatient for this scope (EGD). Please take your Nexium (esomeprazole) 2 times per day for the next month. Avoid ibuprofen, Motrin, Aleve, naproxen, or other "NSAID" medications. Do not drink any alcohol as it can irritate the lining of your stomach. Please return to the hospital with any more black, tarry stools, any throwing u p, and lightheadedness or dizziness. Prescriptions: Continued donepezil 10 mg tablet 10 mg PO DAILY RF: 0 sildenafil 100 mg tablet 100 mg PO DIRECTED PRN (Reason: Sexual Activity) RF: 0 levalbuterol HCl 1.25 mg/3 mL solution for nebulization 3 ml Inhalation QID PRN (Reason: Shortness Of Breath) RF: 0 sertraline 50 mg tablet 50 mg PO DAILY RF: 0 levalbuterol tartrate [Xopenex HFA] 45 mcg/actuation Hfa Aerosol Inhaler 2 inh INHALATION Q4 PRN (Reason: Shortness Of Breath) RF: 0 cholecalciferol (vitamin D3) [Vitamin D3] 1,000 unit Tablet 1,000 unit PO DAILY RF: 0 Breo Ellipta 200-25 mcg/dose Blister With Device 1 inh INHALATION DAILY PRN (Reason: Shortness Of Breath Or Wheezing) RF: 0 Changed esomeprazole magnesium 40 mg capsule,delayed release(DR/EC) 40 mg PO BID Qty: 0 RF: 0 Stand-Alone Forms: [facility] Discharge Orders: Discharge Order (Routine); Ordered 07/14/18 Ordered By: Nixon Smith Admission Data Admit Date/Time: 07/13/18 08:12 Attending Provider: Nixon Smith Admit Provider: Nixon Smith Primary Care Provider: Felipa Cabrales Other Providers: Nixon Smith ; Asad Brown Service: Medical Other Interventions: Discharge Summary Assessment (RN) Last Done: 07/14/18 11:12 DC Date/Time DO NOT enter until pt leaves facility: 07/14/18 11:38
== END 2018-07-14 11:38 | disposition home or self-care (01) ==
LOC: 4E 04:35 → ED 04:35 → 4E 09:19
DX: F03.90 Unspecified dementia, unspecified severity, without behavioral disturbance, psychotic disturbance, mood disturbance, and anxiety; J44.9 Chronic obstructive pulmonary disease, unspecified; K20.9 Esophagitis, unspecified; W30.9XXA Contact with unspecified agricultural machinery, initial encounter; K92.2 Gastrointestinal hemorrhage, unspecified; S80.12XA Contusion of left lower leg, initial encounter; Z79.899 Other long term (current) drug therapy; F17.220 Nicotine dependence, chewing tobacco, uncomplicated; K57.92 Diverticulitis of intestine, part unspecified, without perforation or abscess without bleeding; S80.11XA Contusion of right lower leg, initial encounter

== ENCOUNTER 2021-10-14 00:39 | Inpatient (IN) ==
[2021-10-14 01:11] LABS: Basophils # (auto) 0.04 K/uL (0-0.2); Basophils % (auto) 0.8 %; Eosinophils # (auto) 0.03 K/uL (0-0.50); Eosinophils % (auto) 0.6 %; Hematocrit (blood only) 35.5 % (40.1-51.0); Hemoglobin 11.4 g/dl (14.0-18.0); Immature Granulocytes # (auto) 0.03 K/uL (0.00-0.02); Immature Granulocytes % (auto) 0.6 %; Lymphocytes % (auto) 26.5 %; Mean Corpuscular Hemoglobin 31.5 pg (25.0-34.0); Mean Corpuscular Hgb Conc 32.1 g/dL (32.0-36.0); Mean Corpuscular Volume 98.1 fL (80.0-100.0); Mean Platelet Volume 11.8 fL (9.4-12.4); Monocytes # (auto) 0.84 K/uL (0.24-0.82); Monocytes % (auto) 15.9 %; Neutrophils # (auto) 2.95 K/uL (1.4-6.5); Neutrophils % (auto) 55.6 %; Platelet Count 175 K/uL (130-400); RDW Coefficient of Variation 13.8 % (11.5-14.5); Red Blood Count 3.62 M/uL (4.63-6.08); White Blood Count 5.29 K/ul (4.8-10.8)
--- NOTE | 2021-10-14 01:19 | Emergency Department Note ---
Impression & Plan Dementia ADMIT ED Provider Note HPI: The patient is an 86-year-old gentleman with history of dementia, presents the emergency department with agitation. Patient reportedly was becoming more agitated at home recently, I was able to confirm this with his on the alejandra ne, Kristi, who tells me that the patient was yelling today and exhibiting some paranoia about her "stealing his things". Patient was yelling at her outside the house and the neighbors called police. Police then had the patient brought to the ED for further assessment. Patient's tells me she does not feel safe with him at home. Patient is in no acute distress on arrival, he is not aggressive on my exam. ROS: -Psychiatric: Agitation, dementia *10 point review systems was conducted and is otherwise negative unless stated above *Outpatient medications and allergy history reviewed PE: General: Alert, NAD HEENT: Normocephalic, atraumatic Eyes: Extraocular eye movement is intact, no scleral erythema Pulmonary: Clear to auscultation bilaterally, no wheezing Cardio: Regular rate and rhythm GI: Abdomen is soft, nontender : No suprapubic tenderness MSK: No evidence of trauma or malformation of the extremities, no edema Skin: No evidence of rash Neuro: Alert, no focal deficits Psychiatric: Cooperative CT HEAD: No evidence of acute intracranial pathology. Mild nonspecific white matter changes. Bilateral lens replacements. Comparison made to prior head CT from September 26, 2018. Radiologist: Amanda Easley MD Medical Decision Making: Patient presented to the emergency department with some agitation, police were contacted as the patient was screaming at his from the front yard. He was brought to the ED for further assessment, I did discuss the patient's presentation with his , Kristi, on the phone, she tells me that she does not feel safe with him at home at this time and she does not feel that she can handle his agitated spells which she tells me have been worsening over the past several weeks. Patient is unable to provide me with any history on arrival, he is not agitated or aggressive with staff. He was given a dose of Seroquel which is a home medication to aid with his sleep. CT imaging of the head was obtained that shows no evidence of any acute intracranial process, lab work does not show any critical findings. Patient was medically cleared, discussed with case dulce parisi and given that the patient does not have underlying psychiatric pathology he is determined to be more appropriate for medical admission for placement in a retirement with a dementia unit. [facility] hospitalist service was consulted for the admission and the patient was admitted in stable condition for further care. Diagnosis: 1. Dementia with behavioral disturbance 2. Agitation Disposition: Admission Hood Burroughs DO Emergency Medicine Past Med/Surg History Medical History (Updated 10/14/21 @ 03:13 by Hood Burroughs DO) COPD (chronic obstructive pulmonary disease) Dementia Diverticulitis Kidney stone Surgical History H/O knee surgery History of kidney surgery Previous back surgery S/P foot surgery Family History Mother Stroke Brother Prostate cancer Denies family history of Ovarian cancer Myocardial infarction Breast cancer Colorectal cancer Social History Smoking Status: Never smoker Hx Alcohol Use: No Hx Substance Use: No Preferred Language: Kittitian Communication Ability: Effective Ramp Supervisor Required: No Beliefs That Will Affect Care: None Current Living Situation: Spouse current occupational status: retired Feels Safe at Home: Yes Dental Care, Regularly: No Seatbelt Use: always Sunscreen Use: No Assistive Devices: Glasses Allergies Allergies Allergy/AdvReac Type Severity Reaction Status Date / Time albuterol Allergy Unknown short of Verified 10/14/21 01:25 breath lactose Allergy Unknown Verified 10/14/21 01:25 Home Meds Home Medications Medication Instructions Recorded Confirmed cholecalciferol (vitamin D3) 25 1,000 unit PO DAILY 01/07/18 10/14/21 mcg (1,000 unit) tablet (Vitamin D3) esomeprazole magnesium 40 mg 40 mg PO DAILY 10/31/18 10/14/21 capsule,delayed release Previous Rx's Medication Instructions Recorded memantine 28 mg capsule 28 mg PO DAILY #90 ea 11/17/20 sprinkle,extended release 24hr levalbuterol HCl 1.25 mg/3 mL 1.25 mg (3 mL) inhalation QID PRN 03/14/21 solution for nebulization Shortness Of Breath #180 mL levothyroxine 75 mcg tablet 75 mcg PO DAILY #30 tabs 06/14/21 fluticasone fur. 100 mcg-umeclid 1 inh inhalation DAILY #60 ea 06/17/21 62.5 mcg-vilant 25 mcg inhalat.powder (Trelegy Ellipta) sertraline 100 mg tablet See Rx Instructions .Route 08/25/21 .COMPLEX #30 tabs rivastigmine 4.6 mg/24 hour 4.6 mg transdermal DAILY #30 ea 09/20/21 transdermal patch quetiapine 25 mg tablet 25 mg PO .COMPLEX 30 days #30 tabs 10/07/21 Results & Data (ED) Vital Signs Vital Signs - 24 hr 10/14/21 01:06 10/14/21 01:06 Temperature 37 C Temperature Source Oral Pulse Rate 103 H Pulse Rate [Right Finger] 103 H Respiratory Rate 20 20 Respiratory Effort / Characteristics Non-Labored Spontaneous Non-Labored Spontaneous Respiratory Depth Normal Normal Respiratory Pattern Regular Regular Blood Pressure 155/86 H Blood Pressure [Right Arm] 155/86 H Blood Pressure Mean 109 Blood Pressure Mean [Right Arm] 109 Pulse Oximetry 94 94 Oxygen Delivery Method Room Air Room Air Sepsis Recent Fever Within 48 Hours No Sepsis New/Unexplained Change in Mental Status No Sepsis Action Taken by Nursing No Action Required Laboratory Data Result diagrams: 10/14/21 00:51 10/14/21 00:51 Lab Results 10/14/21 10/14/21 10/14/21 Range/Units 00:49 00:51 00:51 WBC 5.29 (4.8-10.8) K/ul RBC 3.62 L (4.63-6.08) M/uL Hgb 11.4 L (14.0-18.0) g/dl Hct 35.5 L (40.1-51.0) % MCV 98.1 (80.0-100.0) fL MCH 31.5 (25.0-34.0) pg MCHC 32.1 (32.0-36.0) g/dL RDW Std Deviation 50.0 H (36.4-46.3) fL RDW Coeff of Bek[place] 13.8 (11.5-14.5) % Plt Count 175 (130-400) K/uL MPV 11.8 (9.4-12.4) fL Immature Gran % (Auto) 0.6 % Neut % (Auto) 55.6 % Lymph % (Auto) 26.5 % [place] % (Auto) 15.9 % Eos % (Auto) 0.6 % Baso % (Auto) 0.8 % Neut # (Auto) 2.95 (1.4-6.5) K/uL Lymph # (Auto) 1.40 (1.2-3.4) K/uL [place] # (Auto) 0.84 H (0.24-0.82) K/uL Eos # (Auto) 0.03 (0-0.50) K/uL Baso # (Auto) 0.04 (0-0.2) K/uL Immature Gran # (Auto) 0.03 H (0.00-0.02) K/uL Sodium 138 (136-145) mmol/L Potassium 4.3 (3.5-5.1) mmol/L Chloride 105 (98-107) mmol/L Carbon Dioxide 23 (21-32) mmol/L Anion Gap 10 (3-11) BUN 23 (6-23) mg/dl Creatinine 1.82 H (0.6-1.4) mg/dl Est Cr Clr Drug Dosing Not Reportable Est GFR ( Amer) 37.6 ml/min Est GFR (Non-Af Amer) 32.4 ml/min BUN/Creatinine Ratio 12.6 (10-20) Glucose 106 H (70-99(Fasting)) mg/dl Calcium 9.1 (8.5-10.1) mg/dl Total Bilirubin 0.4 (0.2-1.0) mg/dl AST 43 H (13-39) U/L ALT 16 (7-52) U/L Alkaline Phosphatase 86 (34-104) U/L Total Protein 7.5 (6.0-8.3) gm/dl Albumin 4.6 (3.4-5.0) gm/dl Globulin 2.9 (2.5-4.0) gm/dl Albumin/Globulin Ratio 1.6 (0.9-2) TSH (0.300-4.500) uIu/ml Free T4 (0.61-1.60) ng/dl Urine Color Urine Appearance (Clear) Urine pH (4.5-7.5) Ur Specific [place] (1.000-1.030) Urine Protein (Negative) Urine Glucose (UA) (Negative) Urine Ketones (Negative) Urine Blood (Negative) Urine Nitrite (Negative) Urine Bilirubin (Negative) Urine Urobilinogen (Negative) Ur Leukocyte Esterase (Negative) Urine WBC (Auto) (0-5) /hpf Urine RBC (Auto) (0-4) /hpf U Hyaline Cast (Auto) (0-5) /lpf U Epithel Cells (Auto) (0-5) /lpf Urine Bacteria (Auto) (Negative) Salicylates (3.0-30) mg/dl Urine Opiates Screen (Neg) Ur Methadone, Qual (Neg) Acetaminophen (10-30) ug/ml Urine Barbiturates (Neg) Ur Phencyclidine (PCP) (Neg) U Amphetamin/Meth Scrn (Neg) MDMA (Ecstasy) Screen (Neg) U Benzodiazepines Scrn (Neg) Ur Cocaine Metabolite (Neg) U Marijuana (THC) Screen (Neg) Ethyl Alcohol mg/dL (<10.0) mg/dl SARS-CoV-2, RNA, NAAT NEGATIVE (NEGATIVE) 10/14/21 10/14/21 10/14/21 Range/Units 00:51 00:51 00:51 WBC (4.8-10.8) K/ul RBC (4.63-6.08) M/uL Hgb (14.0-18.0) g/dl Hct (40.1-51.0) % MCV (80.0-100.0) fL MCH (25.0-34.0) pg MCHC (32.0-36.0) g/dL RDW Std Deviation (36.4-46.3) fL RDW Coeff of Bekah (11.5-14.5) % Plt Count (130-400) K/uL MPV (9.4-12.4) fL Immature Gran % (Auto) % Neut % (Auto) % Lymph % (Auto) % [place] % (Auto) % Eos % (Auto) % Baso % (Auto) % Neut # (Auto) (1.4-6.5) K/uL Lymph # (Auto) (1.2-3.4) K/uL [place] # (Auto) (0.24-0.82) K/uL Eos # (Auto) (0-0.50) K/uL Baso # (Auto) (0-0.2) K/uL Immature Gran # (Auto) (0.00-0.02) K/uL Sodium (136-145) mmol/L Potassium (3.5-5.1) mmol/L Chloride (98-107) mmol/L Carbon Dioxide (21-32) mmol/L Anion Gap (3-11) BUN (6-23) mg/dl Creatinine (0.6-1.4) mg/dl Est Cr Clr Drug Dosing Est GFR ( Amer) ml/min Est GFR (Non-Af Amer) ml/min BUN/Creatinine Ratio (10-20) Glucose (70-99(Fasting)) mg/dl Calcium (8.5-10.1) mg/dl Total Bilirubin (0.2-1.0) mg/dl AST (13-39) U/L ALT (7-52) U/L Alkaline Phosphatase (34-104) U/L Total Protein (6.0-8.3) gm/dl Albumin (3.4-5.0) gm/dl Globulin (2.5-4.0) gm/dl Albumin/Globulin Ratio (0.9-2) TSH 5.353 H (0.300-4.500) uIu/ml Free T4 0.60 L (0.61-1.60) ng/dl Urine Color Urine Appearance (Clear) Urine pH (4.5-7.5) Ur Specific [place] (1.000-1.030) Urine Protein (Negative) Urine Glucose (UA) (Negative) Urine Ketones (Negative) Urine Blood (Negative) Urine Nitrite (Negative) Urine Bilirubin (Negative) Urine Urobilinogen (Negative) Ur Leukocyte Esterase (Negative) Urine WBC (Auto) (0-5) /hpf Urine RBC (Auto) (0-4) /hpf U Hyaline Cast (Auto) (0-5) /lpf U Epithel Cells (Auto) (0-5) /lpf Urine Bacteria (Auto) (Negative) Salicylates < 3.0 L (3.0-30) mg/dl Urine Opiates Screen (Neg) Ur Methadone, Qual (Neg) Acetaminophen < 3 L (10-30) ug/ml Urine Barbiturates (Neg) Ur Phencyclidine (PCP) (Neg) U Amphetamin/Meth Scrn (Neg) MDMA (Ecstasy) Screen (Neg) U Benzodiazepines Scrn (Neg) Ur Cocaine Metabolite (Neg) U Marijuana (THC) Screen (Neg) Ethyl Alcohol mg/dL < 10.0 (<10.0) mg/dl SARS-CoV-2, RNA, NAAT (NEGATIVE) 10/14/21 10/14/21 Range/Units 01:30 01:30 WBC (4.8-10.8) K/ul RBC (4.63-6.08) M/uL Hgb (14.0-18.0) g/dl Hct (40.1-51.0) % MCV (80.0-100.0) fL MCH (25.0-34.0) pg MCHC (32.0-36.0) g/dL RDW Std Deviation (36.4-46.3) fL RDW Coeff of Bekah (11.5-14.5) % Plt Count (130-400) K/uL MPV (9.4-12.4) fL Immature Gran % (Auto) % Neut % (Auto) % Lymph % (Auto) % [place] % (Auto) % Eos % (Auto) % Baso % (Auto) % Neut # (Auto) (1.4-6.5) K/uL Lymph # (Auto) (1.2-3.4) K/uL [place] # (Auto) (0.24-0.82) K/uL Eos # (Auto) (0-0.50) K/uL Baso # (Auto) (0-0.2) K/uL Immature Gran # (Auto) (0.00-0.02) K/uL Sodium (136-145) mmol/L Potassium (3.5-5.1) mmol/L Chloride (98-107) mmol/L Carbon Dioxide (21-32) mmol/L Anion Gap (3-11) BUN (6-23) mg/dl Creatinine (0.6-1.4) mg/dl Est Cr Clr Drug Dosing Est GFR ( Amer) ml/min Est GFR (Non-Af Amer) ml/min BUN/Creatinine Ratio (10-20) Glucose (70-99(Fasting)) mg/dl Calcium (8.5-10.1) mg/dl Total Bilirubin (0.2-1.0) mg/dl AST (13-39) U/L ALT (7-52) U/L Alkaline Phosphatase (34-104) U/L Total Protein (6.0-8.3) gm/dl Albumin (3.4-5.0) gm/dl Globulin (2.5-4.0) gm/dl Albumin/Globulin Ratio (0.9-2) TSH (0.300-4.500) uIu/ml Free T4 (0.61-1.60) ng/dl Urine Color Dark Yellow Urine Appearance Clear (Clear) Urine pH 6.5 (4.5-7.5) Ur Specific [place] 1.023 (1.000-1.030) Urine Protein Trace H (Negative) Urine Glucose (UA) Negative (Negative) Urine Ketones Trace H (Negative) Urine Blood Negative (Negative) Urine Nitrite Negative (Negative) Urine Bilirubin Negative (Negative) Urine Urobilinogen Negative (Negative) Ur Leukocyte Esterase Trace H (Negative) Urine WBC (Auto) 1-5 (0-5) /hpf Urine RBC (Auto) 0-4 (0-4) /hpf U Hyaline Cast (Auto) 5-10 H (0-5) /lpf U Epithel Cells (Auto) 10-20 H (0-5) /lpf Urine Bacteria (Auto) Negative (Negative) Salicylates (3.0-30) mg/dl Urine Opiates Screen Neg (Neg) Ur Methadone, Qual Neg (Neg) Acetaminophen (10-30) ug/ml Urine Barbiturates Neg (Neg) Ur Phencyclidine (PCP) Neg (Neg) U Amphetamin/Meth Scrn Neg (Neg) MDMA (Ecstasy) Screen Neg (Neg) U Benzodiazepines Scrn Neg (Neg) Ur Cocaine Metabolite Neg (Neg) U Marijuana (THC) Screen Neg (Neg) Ethyl Alcohol mg/dL (<10.0) mg/dl SARS-CoV-2, RNA, NAAT (NEGATIVE) Discharge Plan Visit Data Chief Complaint: Mental Health Evaluation Stated Complaint: DELUSIONS, ALTERED ED Provider: Hood Burroughs Discharge Problem: Dementia Patient Disposition: Admitted As Inpatient Forms Stand Alone Forms: [facility], Suicide Prevention Resources Prescriptions Prescriptions: No Action levalbuterol HCl 1.25 mg/3 mL solution for nebulization 1.25 mg Inhalation QID PRN (Reason: Shortness Of Breath) Qty: 180 5RF levothyroxine 75 mcg tablet 75 mcg PO DAILY Qty: 30 3RF sertraline 100 mg tablet See Rx Instructions .ROUTE .COMPLEX Qty: 30 5RF Dose Instruction: TAKE 1 TABLET BY MOUTH DAILY. Rx Instructions: TAKE 1 TABLET BY MOUTH DAILY. rivastigmine 4.6 mg/24 hour patch 24 hour 4.6 mg transdermal DAILY Qty: 30 2RF quetiapine 25 mg tablet 25 mg PO .COMPLEX 30 Days Qty: 30 2RF Rx Instructions: 25 mg orally evening; esomeprazole magnesium 40 mg capsule,delayed release(DR/EC) 40 mg PO DAILY memantine 28 mg capsule,sprinkle,ER 24hr 28 mg PO DAILY Qty: 90 3RF Trelegy Ellipta 100-62.5-25 mcg blister with device 1 inh INH DAILY Qty: 60 3RF cholecalciferol (vitamin D3) [Vitamin D3] 1,000 unit Tablet 1,000 unit PO DAILY Referrals Referrals: Elvia Titus MD [Primary Care Provider] -
[2021-10-14 01:44] LABS: Alanine Aminotransferase 16 U/L (7-52); Albumin Globulin Ratio 1.6 (0.9-2); Albumin Level 4.6 gm/dl (3.4-5.0); Alkaline Phosphatase 86 U/L (34-104); Anion Gap 10 (3-11); Aspartate Aminotransferase 43 U/L (13-39); BUN Creatinine Ratio 12.6 (10-20); Bilirubin,Total 0.4 mg/dl (0.2-1.0); Blood Urea Nitrogen 23 mg/dl (6-23); Calcium 9.1 mg/dl (8.5-10.1); Carbon Dioxide 23 mmol/L (21-32); Chloride 105 mmol/L (98-107); Est GFR (African American) 37.6 ml/min; Est GFR (Non-African American) 32.4 ml/min; Globulin 2.9 gm/dl (2.5-4.0); Glucose 106 mg/dl (70-99(Fasting)); Potassium 4.3 mmol/L (3.5-5.1); Sodium 138 mmol/L (136-145); Total Protein 7.5 gm/dl (6.0-8.3)
[2021-10-14 01:53] LABS: Thyroid Stimulating Hormone 5.353 uIu/ml (0.300-4.500)
[2021-10-14 01:58] LABS: Appearance Urine Clear (Clear); Bacteria Urine Automated Negative (Negative); Bilirubin Urine Negative (Negative); Blood Urine Negative (Negative); Color Urine Dark Yellow; Glucose Urine UA Negative (Negative); Ketones Urine Trace (Negative); Leukocyte Esterase Urine Trace (Negative); Nitrite Urine Negative (Negative); Protein Urine Trace (Negative); RBC Urine Automated 0-4 /hpf (0-4); Specific Gravity Urine 1.023 (1.000-1.030); Urobilinogen Urine Negative (Negative); pH Urine 6.5 (4.5-7.5)
[2021-10-14 02:01] LABS: Acetaminophen < 3 ug/ml (10-30); Salicylate < 3.0 mg/dl (3.0-30)
[2021-10-14 02:18] LABS: Amphetamines+Metham, Urine Neg (Neg); Barbiturates, Urine Neg (Neg); Benzodiazepine, Urine Neg (Neg); Cocaine, Urine Neg (Neg); MDMA (Ecstacy), Urine Neg (Neg); Methadone, Urine Neg (Neg); Opiate, Urine Neg (Neg); Phencyclidine, Urine Neg (Neg)
[2021-10-14 02:25] LABS: T4 Free Thyroxine 0.6 ng/dl (0.61-1.60)
[2021-10-14] MEDS ORDERED: QUEtiapine FUMARATE 25 MG TABLET PO STA (02:54)
--- NOTE | 2021-10-14 03:07 | History & Physical Report ---
Date of Service October 14, 2021 Assessment & Plan (1) Agitation: Plan: 86yo male with a history of dementia, COPD, hypothyroidism, GERD, and TED presents for a mental health evaluation after an episode of agitation on 10/13. Agitation, dementia, anxiety Patient with episode of agitation on 10/13 which resulted in not feeling safe at home; patient brought to [facility] via police transport Patient with poor recollection of earlier events, not oriented, though not agitated or combative during my interview Upon arrival, vitals were notable for elevated BP (150s/80s) and tachycardia (106). No tachypnea, patient afebrile, spO2 adequate on room air Initial labs were notable for mild anemia (11.4), elevated creatinine (1.82, baseline ~1.3), elevated TSH (5.4) with borderline-low fT4 (0.6) UA likely contaminated but notable for trace protein, ketones, and leuk esterase. UDS negative, urine APAP and salicylates undetectable Suspect symptoms secondary to known dementia; no overt sign of infection, UDS negative, no signs/symptoms to suggest CVA Given seroquel 25mg PO in ED Continue home dementia regimen Psychiatry consulted for diagnostic clarity and insight into med management, recommendations appreciated Currently not enough staffing for patient to have a 1:1; patient not agitated at this time, ordered as-needed pharmacological restraint as below Haldol 5mg IM q8h prn severe agitation, combativeness, removing medical equipment, or otherwise a danger to self or others HERO Creatinine on admission 1.82 (baseline ~1.3), etiology unclear NSS @ 80mL/hr (x1 bag ordered) Trend BMP, avoid nephrotoxins, encourage PO intake Hypothyroidism TSH on admission elevated to 5.4, fT4 borderline-low at 0.6 Continue home levothyroxine at current dose Recommend repeating TSH in six weeks on an outpatient basis and adjusting levothyroxine dose as indicated COPD: no respiratory symptoms recently per patient, respiratory exam normal upon admission; continue home regimen GERD: continue home esomeprazole or formulary equivalent FEN: regular safe tray diet, NSS @ 80mL/hr (x1 bag ordered) Code status: full code - patient was unable to engage in a meaningful discussion about code status, please revisit this when able or discuss with family DVT ppx: SCDs Consults: psychiatry Case management: consulted Dispo: med/surg (2) Dementia: (3) Hypothyroidism: (4) GERD (gastroesophageal reflux disease): (5) Fatigue: (6) Elevated serum creatinine: (7) Anxiety: (8) COPD (chronic obstructive pulmonary disease): History of Present Illness Primary Care Provider: Elvia Titus MD 86yo male with a history of dementia, COPD, hypothyroidism, GERD, and TED pre sents for a mental health evaluation after an episode of agitation on 10/13. History is primarily obtained via review of patient's arrival ED note, as patient is a poor historian and family is not present at this time. Patient has a history of dementia and has reportedly become more and more agitated recently, yelling and paranoid, thinking his was stealing from her. Patient's neighbors called police when patient was found outside yelling. Police brought patient to the ED. Per discussion between patient's and ED provider, patient's notes she does not feel safe at him. Patient is aware that he has dementia but reports he does not remember any events from earlier in the day, is unsure why he was brought here, and did not realize he was in the hospital. Patient is a poor historian but denies recent fever, chills, headache, vision changes, CP, palpitations, SOB, edema, abdominal pain, nausea, vomiting, dysuria, hematochezia, melena, lightheadedness, dizziness, numbness, tingling, weakness, or other symptoms. Denies recent illness and recent travel. Upon arrival, vitals were notable for elevated BP (150s/80s) and tachycardia (106). No tachypnea, patient afebrile, spO2 adequate on room air. Initial labs were notable for mild anemia (11.4), elevated creatinine (1.82, baseline ~1.3), elevated TSH (5.4) with borderline-low fT4 (0.6). UA likely contaminated but notable for trace protein, ketones, and leuk esterase. UDS negative, urine APAP and salicylates undetectable. In the ED, patient received quetiapine 25mg (x1). CT head showed no acute intracranial pathology and mild nonspecific white matter changes. EKG: NSR with QTc prolonged to 484. Allergies Allergy/AdvReac Type Severity Reaction Status Date / Time albuterol Allergy Unknown short of Verified 10/14/21 01:25 breath lactose Allergy Unknown Verified 10/14/21 01:25 Home Medications Medication Instructions Recorded Confirmed Type cholecalciferol (vitamin D3) 25 1,000 unit PO DAILY 01/07/18 10/14/21 History mcg (1,000 unit) tablet (Vitamin D3) esomeprazole magnesium 40 mg 40 mg PO DAILY 10/31/18 10/14/21 History capsule,delayed release memantine 28 mg capsule 28 mg PO DAILY #90 ea 11/17/20 10/14/21 Rx sprinkle,extended release 24hr levalbuterol HCl 1.25 mg/3 mL 1.25 mg (3 mL) inhalation QID PRN 03/14/21 10/14/21 Rx solution for nebulization Shortness Of Breath #180 mL levothyroxine 75 mcg tablet 75 mcg PO DAILY #30 tabs 06/14/21 10/14/21 Rx fluticasone fur. 100 mcg-umeclid 1 inh inhalation DAILY #60 ea 06/17/21 10/14/21 Rx 62.5 mcg-vilant 25 mcg inhalat.powder (Trelegy Ellipta) sertraline 100 mg tablet See Rx Instructions .Route 08/25/21 10/14/21 Rx .COMPLEX #30 tabs rivastigmine 4.6 mg/24 hour 4.6 mg transdermal DAILY #30 ea 09/20/21 10/14/21 Rx transdermal patch quetiapine 25 mg tablet 25 mg PO .COMPLEX 30 days #30 tabs 10/07/21 10/14/21 Rx Past Med/Surg History Medical History (Updated 10/14/21 @ 03:13 by Hood Burroughs DO) COPD (chronic obstructive pulmonary disease) Dementia Diverticulitis Kidney stone Surgical History H/O knee surgery History of kidney surgery Previous back surgery S/P foot surgery Family History Mother Stroke Brother Prostate cancer Denies family history of Ovarian cancer Myocardial infarction Breast cancer Colorectal cancer Social History Smoking Status: Never smoker Hx Alcohol Use: No Hx Substance Use: No Preferred Language: Andorran Communication Ability: Impaired Major Assembler Required: No Beliefs That Will Affect Care: None Current Living Situation: Spouse current occupational status: retired Feels Safe at Home: Yes Dental Care, Regularly: No Seatbelt Use: always Sunscreen Use: No Assistive Devices: None Physical Exam Physical Exam: Constitutional: well-appearing, no acute distress HEENT: NCAT, no conjunctival injection CV: regular rhythm, no murmur appreciated, extremities well-perfused, no LE edema Resp: CTABL, no wheezes/rales/rhonchi appreciated, no increased work of breathing GI: soft, nondistended, nontender, BS normoactive MSK: no gross deformities appreciated Skin: warm, dry, no rash appreciated Neuro: alert, oriented to person, not oriented to place, time, or situation; no focal neurologic deficit appreciated Appearance: wearing hospital gown Behavior: calm, cooperative, eye contact good Mood: "okay" Affect: pleasant, affect congruent with mood Speech: appropriate rate/quantity/volume Thought process: tangential, perseverative Thought content: intermittently appropriate to topic of discussion at times, intermittently perseverative on working in [employer] as a [employer] Cognition: alert, focus poor, short- and long-term memory unable to be assessed Insight: poor Judgment: poor Results & Data Results & Data ([place]) Vital Signs (Past 12 Hours) Vital Signs Temp Pulse Pulse Resp BP BP Pulse Ox 10/14/21 01:06 103 H 20 155/86 H 94 10/14/21 01:06 37 C 103 H 20 155/86 H 94 O2 Del Method 10/14/21 01:06 Room Air 10/14/21 01:06 Room Air Supervising Physician Co-Signing Physician Notes Acute kidney injuryAttending addendum: I have physically seen this patient, have supervised the medical residents activities, and agree with the H&P unless as otherwise noted. Assessment and Plan: Progressive agitation/dementia/anxiety- is unable to Take care of patient at home any further Patient has been brought to [facility] via police transport Admit for assessment and skilled nursing placement Continue usual home regimen Consult psychiatry Haldol 5 mg IM every 8 hours as needed Acute kidney injury-creatinine 1.8 Admission, with base 1.3 NSS 80 mils per hour recheck laboratories in a.m. Remaining orders and notations as noted Resident Activity Tracking Resident Involvement: Resident Care Provided and Group Controller Coverage Note Care Provided: Adult Hospital Medicine
[2021-10-14] MEDS ORDERED: SODIUM CHLORIDE 0.9% 1000ML 1,000 ML IV SCH (03:30)
[2021-10-14] MEDS ORDERED: HALOPERIDOL LACTATE 5 MG/ML 1 ML VIAL IM PRN (03:56)
[2021-10-14 04:37] LABS: Basophils # (auto) 0.04 K/uL (0-0.2); Basophils % (auto) 0.8 %; Eosinophils # (auto) 0.02 K/uL (0-0.50); Eosinophils % (auto) 0.4 %; Hematocrit (blood only) 34.5 % (40.1-51.0); Hemoglobin 11.2 g/dl (14.0-18.0); Immature Granulocytes # (auto) 0.01 K/uL (0.00-0.02); Immature Granulocytes % (auto) 0.2 %; Lymphocytes # (auto) 1.19 K/uL (1.2-3.4); Lymphocytes % (auto) 23.3 %; Mean Corpuscular Hemoglobin 31.5 pg (25.0-34.0); Mean Corpuscular Hgb Conc 32.5 g/dL (32.0-36.0); Mean Corpuscular Volume 96.9 fL (80.0-100.0); Mean Platelet Volume 11.8 fL (9.4-12.4); Monocytes # (auto) 0.66 K/uL (0.24-0.82); Monocytes % (auto) 12.9 %; Neutrophils # (auto) 3.19 K/uL (1.4-6.5); Neutrophils % (auto) 62.4 %; Platelet Count 157 K/uL (130-400); RDW Coefficient of Variation 13.8 % (11.5-14.5); RDW Standard Deviation 49.4 fL (36.4-46.3); Red Blood Count 3.56 M/uL (4.63-6.08); White Blood Count 5.11 K/ul (4.8-10.8)
[2021-10-14 05:03] LABS: Anion Gap 8 (3-11); BUN Creatinine Ratio 12.1 (10-20); Blood Urea Nitrogen 21 mg/dl (6-23); Carbon Dioxide 25 mmol/L (21-32); Chloride 105 mmol/L (98-107); Chol HDL Ratio 4.6 (0-5); Cholesterol 201 mg/dl (0-200); Est GFR (Non-African American) 34.5 ml/min; Glucose 97 mg/dl (70-99(Fasting)); HDL Cholesterol 44 mg/dl; LDL Cholesterol Calculated 134 mg/dl; Potassium 4.1 mmol/L (3.5-5.1); Sodium 138 mmol/L (136-145); Triglycerides 114 mg/dl (0-150); VLDL Cholesterol 23 mg/dl (0-30)
[2021-10-14] MEDS ORDERED: ACETAMINOPHEN 325 MG TAB PO PRN (06:39)
[2021-10-14] MEDS ORDERED: LEVALBUTEROL HCL 1.25 MG/3 ML NEB INH PRN (06:39)
--- NOTE | 2021-10-14 06:44 | CT Scan Report ---
CT OF THE HEAD WITHOUT CONTRAST CLINICAL HISTORY: Altered mental status. COMPARISON STUDY: Head CT September 26, 2018. CT DOSE: 614.27 mGy.cm TECHNIQUE: Helical axial images of the head were obtained without IV contrast. Automated exposure con trol was utilized for the study. A dose lowering technique was utilized adhering to the principles o f ALARA. FINDINGS: No acute intracranial hemorrhage, midline shift or mass effect is present. White matter hyp odensity suggests small vessel disease. The ventricular system is unremarkable. The basal cisterns ar e patent. No extra-axial collections are present. There are no findings to suggest acute dural sinus thrombosis or acute territorial infarct. No significant calvarial abnormalities are present. Visualiz ed portions of the sinuses and mastoid air cells are clear. IMPRESSION: No acute intracranial findings. ACT 112: Negative or not required by law. Electronically signed by: Magan Yoon M.D. 10/14/2021 6:42 AM
[2021-10-14 07:03] LABS: Estimated Average Glucose 117 mg/dl; Hemoglobin A1C 5.7 % (4.5-5.6)
[2021-10-14] MEDS: UMECLIDINIUM/VILANTEROL 62.5/25MCG 7 PUFFS/INHALER INH SCH (08:53)
[2021-10-14] MEDS: FLUTICASONE FUROATE 100MCG 14 PUFFS/INHALER INH SCH (08:54)
[2021-10-14] MEDS: PANTOprazole 40 MG TAB PO SCH (08:54)
[2021-10-14] MEDS: MEMANTINE HCL 10 MG TAB PO SCH (08:54)
[2021-10-14] MEDS: SERTRALINE HCL 100 MG TABLET PO SCH (08:54)
--- NOTE | 2021-10-14 15:17 | Electrocardiogram Report ---
Test Reason : Blood Pressure : / mmHG Vent. Rate : 089 BPM Atrial Rate : 089 BPM P-R Int : 166 ms QRS Dur : 104 ms QT Int : 398 ms P-R-T Axes : 047 -31 053 degrees QTc Int : 484 ms Normal sinus rhythm Left axis deviation Prolonged QT Abnormal ECG When compared with ECG of 13-JUL-2018 05:18, Vent. rate has increased BY 37 BPM QRS axis Shifted left QT has lengthened Confirmed by Armen Ndiaye ([id number]) on 10/14/2021 3:17:17 PM Referred By: Elvia Titus Confirmed By:Donald Ndiaye
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
[2021-10-14] MEDS: QUEtiapine FUMARATE 25 MG TABLET PO SCH (19:50)
--- NOTE | 2021-10-14 21:34 | Billing Data ---
Date of Service October 14, 2021 Coding Level of Care Code 12741 Initial Inpt Care Lvl 3
[2021-10-15] MEDS: LEVOTHYROXINE SODIUM 75 MCG TABLET PO SCH (08:36)
[2021-10-15] MEDS: PANTOprazole 40 MG TAB PO SCH (10:43)
[2021-10-15] MEDS: FLUTICASONE FUROATE 100MCG 14 PUFFS/INHALER INH SCH (10:44)
[2021-10-15] MEDS: SERTRALINE HCL 100 MG TABLET PO SCH (10:44)
[2021-10-15] MEDS: UMECLIDINIUM/VILANTEROL 62.5/25MCG 7 PUFFS/INHALER INH SCH (10:44)
[2021-10-15] MEDS: MEMANTINE HCL 10 MG TAB PO SCH (10:44)
--- NOTE | 2021-10-15 11:25 | Electrocardiogram Report ---
Test Reason : Blood Pressure : / mmHG Vent. Rate : 068 BPM Atrial Rate : 068 BPM P-R Int : 180 ms QRS Dur : 108 ms QT Int : 442 ms P-R-T Axes : 058 -31 041 degrees QTc Int : 469 ms Normal sinus rhythm Left anterior fascicular block Abnormal ECG When compared with ECG of 14-OCT-2021 01:01, No significant change was found Confirmed by Jeremie Chatterjee ([id number]) on 10/15/2021 11:25:07 AM Referred By: Elvia Titus Confirmed By:Jeremie Chatterjee
--- NOTE | 2021-10-15 18:58 | Hospitalist Progress Note ---
Date of Service October 15, 2021 Assessment & Plan (1) Agitation: Plan: 86yo male with a history of dementia, COPD, hypothyroidism, GERD, and TED presents for a mental health evaluation after an episode of agitation on 10/13. Altered mental statusstrongly suspect progressive dementia with some degrees of agitation, cannot rule out a concomitant delirium superimposed on dementia possibly from mild dehydration or possibly if he was mixing up his medications at home creating an accidental polypharmacy. Either way does not seem to be safe at homeparticularly according to his and family. Case management input noted and appreciated. Educated family extensively on dementia today. Also discussed the placement process, and asked to start looking at facilities Agitation, dementia, anxiety See abovemost likely just progressive dementia, but cannot really rule out concomitant delirium HERO Improved Hypothyroidism Continue Synthroid, outpatient follow-up COPD: no respiratory symptoms recently per patient, respiratory exam normal upon admission; continue home regimen GERD: continue home esomeprazole or formulary equivalent FEN: regular safe tray diet Code status: full code -family seemed fairly overwhelmed initially understanding dementia in general, we will need to address this as time moves forward and rapport allows DVT ppx: SCDs Case management: consulted Dispo: med/surg pending placement Admission and Anticipated Discharge Date Admission Date: October 14, 2021 Subjective When very for see the patient he is asleep. Whenever I walk him later family is present. They turned to him and inform him that the doctor is here and that he had wanted to see me for questions. I use this is a nice segue to outline dementia, its natural history, management, as well as redirection etc. to educate family. No meaningful HPI review of systems obtainable from patient. Discussed with case management earlierthey are working on placement as best as they can. Family reiterated frequently whenever I am in the room that he is not safe at home. Review of Systems Review of Systems: Unobtainable due to cognitive status Physical Exam Physical Exam: Awake and alert but otherwise really not coherent. No distress. He is able to easily be redirected old storieswhich he tells almost verbatim. Breathing unlabored no accessory muscle use good effort. Skin shows no rashes no pallor or icterus. Neuro without focal deficits. Results & Data Results & Data ([facility]) Vital Signs (Past 12 Hours) Vital Signs Temp Pulse Resp BP Pulse Ox O2 Del Method 10/15/21 10:49 97.5 F L 73 18 148/85 H 96 Room Air PG Care Time/CCT Total # of Minutes Spent Total Time Spent with Patient: Total time spent is greater than 50% in coordination of care (as documented) at patient's floor/unit and/or counseling patient: Coding Level of Care Code 03600 Subseq Hosp Care Lvl 3 Diagnoses Agitation R45.1
[2021-10-15] MEDS: QUEtiapine FUMARATE 25 MG TABLET PO SCH (21:32)
[2021-10-16] MEDS: LEVOTHYROXINE SODIUM 75 MCG TABLET PO SCH (06:53)
[2021-10-16] MEDS: MEMANTINE HCL 10 MG TAB PO SCH (10:14)
[2021-10-16] MEDS: SERTRALINE HCL 100 MG TABLET PO SCH (10:14)
[2021-10-16] MEDS: FLUTICASONE FUROATE 100MCG 14 PUFFS/INHALER INH SCH (10:14)
[2021-10-16] MEDS: PANTOprazole 40 MG TAB PO SCH (10:14)
[2021-10-16] MEDS: UMECLIDINIUM/VILANTEROL 62.5/25MCG 7 PUFFS/INHALER INH SCH (10:15)
--- NOTE | 2021-10-16 19:21 | Hospitalist Progress Note ---
Date of Service October 16, 2021 Assessment & Plan (1) Agitation: Plan: 86yo male with a history of dementia, COPD, hypothyroidism, GERD, and TED presents for a mental health evaluation after an episode of agitation on 10/13. Altered mental statusstrongly suspect progressive dementia with some degrees of agitation, cannot rule out a concomitant delirium superimposed on dementia possibly from mild dehydration or possibly if he was mixing up his medications at home creating an accidental polypharmacy. Either way does not seem to be safe at homeparticularly according to his and family. Case management input noted and appreciated. on 10/15 educated family extensively on dementia today. Also discussed the placement process, and asked to start looking at facilities for what would be the best fit for them, but also noted that out of the hospital we might only be able to fit wtih what is available/matches financial needs they have/etc Agitation, dementia, anxiety See abovemost likely just progressive dementia, but cannot really rule out concomitant delirium HERO Improved Hypothyroidism Continue Synthroid, outpatient follow-up COPD: no respiratory symptoms recently per patient, respiratory exam normal upon admission; continue home regimen GERD: continue home esomeprazole or formulary equivalent FEN: regular safe tray diet Code status: full code -family seemed fairly overwhelmed initially understanding dementia in general, we will need to address this as time moves forward and rapport allows DVT ppx: SCDs Case management: consulted Dispo: med/surg pending placement Admission and Anticipated Discharge Date Admission Date: October 15, 2021 Subjective No meaningful HPI or ROS obtainable Review of Systems Review of Systems: All systems reviewed & are unremarkable except as noted in HPI & below Physical Exam Physical Exam: pleasant nad confused. breathing unlabored no accessory muscles good effort skin no rashes no pallor or icterus neuro no focal deficits Results & Data Results & Data ([facility]) Vital Signs (Past 12 Hours) Vital Signs Temp Pulse Resp BP BP Pulse Ox O2 Del Method 10/16/21 17:09 97.9 F 68 18 146/79 H 99 Room Air 10/16/21 10:15 97.7 F 68 18 153/89 H 99 Room Air PG Care Time/CCT Total # of Minutes Spent Total Time Spent with Patient: Total time spent is greater than 50% in coordination of care (as documented) at patient's floor/unit and/or counseling patient: Coding Level of Care Code 20168 Subseq Hosp Care Lvl 1 Diagnoses Agitation R45.1
[2021-10-16] MEDS: QUEtiapine FUMARATE 25 MG TABLET PO SCH (21:07)
[2021-10-17] MEDS: LEVOTHYROXINE SODIUM 75 MCG TABLET PO SCH (06:18)
[2021-10-17] MEDS: UMECLIDINIUM/VILANTEROL 62.5/25MCG 7 PUFFS/INHALER INH SCH (09:25)
[2021-10-17] MEDS: FLUTICASONE FUROATE 100MCG 14 PUFFS/INHALER INH SCH (09:25)
[2021-10-17] MEDS: SERTRALINE HCL 100 MG TABLET PO SCH (09:26)
[2021-10-17] MEDS: PANTOprazole 40 MG TAB PO SCH (09:26)
[2021-10-17] MEDS: MEMANTINE HCL 10 MG TAB PO SCH ×2 (09:26→20:05)
--- NOTE | 2021-10-17 09:33 | Hospitalist Progress Note ---
Date of Service October 17, 2021 Assessment & Plan (1) Agitation: Plan: 86yo male with a history of dementia, COPD, hypothyroidism, GERD, and TED presents for a mental health evaluation after an episode of agitation on 10/13. Agitation, dementia, anxiety - Likely due to progressive dementia, no acute precipitant identified via clinical history or workup - Continue psychotropic- Zoloft 25 mg daily, Seroquel 100 mg daily - Continue memantine- increased to 10 mg BID today, home regimen is 28 mg XR daily - Currently no safety risk, pt not agitated and responds well to reorientation/redirection, remains hemodynamically stable - Haldol 5 mg IM q8h PRN for agitation - PT/OT recommending 24 hr care, case management attempting to find placement HERO - Creatinine on admission 1.82 (baseline ~1.3), likely due to reduced PO intake - Trend BMP, avoid nephrotoxins, encourage PO intake Hypothyroidism - TSH on admission elevated to 5.4, fT4 borderline-low at 0.6 - Continue home levothyroxine at 75 mcg daily - Repeat TSH in 6 weeks as outpatient COPD -Respiratory status stable at this time on RA -Continue fluticasone, Anoro GERD -Continue pantoprazole Diet: regular diet Code status: full code DVT ppx: SCDs Dispo: med/surg (2) Dementia: (3) Hypothyroidism: (4) GERD (gastroesophageal reflux disease): (5) Fatigue: (6) Elevated serum creatinine: (7) Anxiety: (8) COPD (chronic obstructive pulmonary disease): Admission and Anticipated Discharge Date Admission Date: October 15, 2021 Supervising Physician Co-Signing Physician Notes The patient confirmed daniels portions of the history and physical evaluation. I agree the impression and plan as noted in the resident documentation. Patient seated in bedside chair talking with one-to-one practical nursing teacher. He is aware he is in the hospital; he reports having 2 houses, otherwise he is to be confused as to which house he is living at currently. Frustrated about being in the hospital; repetitive statements but easily redirected Exam 160/78, 65, 18, 36.8, 99% room air Cardiovascular regular Respirations nonlabored Data Hemoglobin of 11.2, platelet count 157 (8/5) BUN 21, creatinine 1.73 (8/5) Assessment Altered mental status Agitation/dementia/anxiety HERO Hypothyroidism Placement efforts Change memantine to 10 mg p.o. twice daily (he is on extended release 28 mg at home, which would like him to resume upon discharge) Slightly elevated TSH with low free T4; repeat TSH/free T4 in about 4 weeks, may benefit from Synthroid adjustment Subjective No acute events overnight. Pt feeling well. Sitter at bedside stated he has not demonstrated any agitation but is still confused. Pleasant during evaluation, insisted he wants to go home and doesn't like being in the hospital. Denies acute complaints. Review of Systems Review of Systems: Per subjective Physical Exam Physical Exam: Constitutional: well-appearing, no acute distress HEENT: NCAT, no conjunctival injection CV: regular rhythm, no murmur appreciated, extremities well-perfused, no LE edema Resp: CTABL, no wheezes/rales/rhonchi appreciated, no increased work of breathing GI: soft, nondistended, nontender MSK: no gross deformities appreciated Skin: warm, dry, no rash appreciated Neuro: alert, oriented to person, not oriented to place, time, or situation; no focal neurologic deficit appreciated Appearance: wearing hospital gown Behavior: calm, cooperative, eye contact good Mood: "pretty good" Affect: pleasant, affect congruent with mood Speech: appropriate rate/quantity/volume Thought process: intermittently linear to topic of discussion at times Thought content: no AV hallucinations, no SI/HI Cognition: alert, focus poor, short- and long-term memory unable to be assessed Insight: poor Judgment: poor Results & Data Results & Data ([facility]) Vital Signs (Past 12 Hours) Vital Signs Temp Pulse Resp BP Pulse Ox O2 Del Method 10/16/21 22:11 36.8 C 65 18 168/78 H 99 Room Air Resident Activity Tracking Resident Involvement: Resident Care Provided Care Provided: Adult Hospital Medicine
[2021-10-17] MEDS: QUEtiapine FUMARATE 25 MG TABLET PO SCH (20:05)
--- NOTE | 2021-10-18 07:00 | Hospitalist Progress Note ---
Date of Service October 18, 2021 Assessment & Plan (1) Agitation: Plan: 86yo male with a history of dementia, COPD, hypothyroidism, GERD, and TED presents for a mental health evaluation after an episode of agitation on 10/13. Agitation, dementia, anxiety - Likely due to progressive dementia, no acute precipitant identified via clinical history or workup - Continue psychotropic- Zoloft 25 mg daily, Seroquel 100 mg daily - Continue memantine 10 mg BID, home regimen is 28 mg XR daily - Currently no safety risk, pt not agitated and responds well to reorientation/redirection, remains hemodynamically stable - Haldol 5 mg IM q8h PRN for agitation - PT/OT recommending 24 hr care, case management attempting to find placement HERO - Creatinine on admission 1.82 (baseline ~1.3), likely due to reduced PO intake - Trend BMP, avoid nephrotoxins, encourage PO intake Hypothyroidism - TSH on admission elevated to 5.4, fT4 borderline-low at 0.6 - Continue home levothyroxine at 75 mcg daily, consider increasing dose on discharge - Repeat TSH in 4 weeks as outpatient COPD -Respiratory status stable at this time on RA -Continue fluticasone, Anoro GERD -Continue pantoprazole Diet: regular diet Code status: full code DVT ppx: SCDs Dispo: med/surg (2) Dementia: (3) Hypothyroidism: (4) GERD (gastroesophageal reflux disease): (5) Fatigue: (6) Elevated serum creatinine: (7) Anxiety: (8) COPD (chronic obstructive pulmonary disease): Admission and Anticipated Discharge Date Admission Date: October 15, 2021 Supervising Physician Co-Signing Physician Notes The patient confirmed daniels portions of the history and physical evaluation. I agree the impression and plan as noted in the resident documentation. Exam 138/77, 79, 16, 36.9, 95% room air Cardiovascular regular Respirations nonlabored Assessment Altered mental status Agitation/dementia/anxiety HERO Hypothyroidism Placement efforts continue Change memantine to 10 mg p.o. twice daily (he is on extended release 28 mg at home, which would like him to resume upon discharge) Slightly elevated TSH with low free T4; repeat TSH/free T4 in about 4 weeks, may benefit from Synthroid adjustment Subjective No acute events overnight. Pt feeling well. Sitter at bedside stated he has not demonstrated any agitation but is still confused. Pt still fixated on wanting to go home, does not want to be in hospital but is e asily redirected. Denies any somatic complaints. Review of Systems Review of Systems: Per subjective Physical Exam Physical Exam: Constitutional: well-appearing, no acute distress HEENT: NCAT, no conjunctival injection CV: regular rhythm, no murmur appreciated, extremities well-perfused, no LE edema Resp: CTABL, no wheezes/rales/rhonchi appreciated, no increased work of breathing GI: soft, nondistended, nontender MSK: no gross deformities appreciated Skin: warm, dry, no rash appreciated Neuro: alert, oriented to person, not oriented to place, time, or situation; no focal neurologic deficit appreciated Appearance: wearing hospital gown Behavior: calm, cooperative, eye contact good Mood: "ok" Affect: pleasant, affect congruent with mood Speech: appropriate rate/quantity/volume Thought process: intermittently linear to topic of discussion at times Thought content: no AV hallucinations, no SI/HI Cognition: alert, focus poor, short- and long-term memory unable to be assessed Insight: poor Judgment: poor Results & Data Results & Data ([facility]) Vital Signs (Past 12 Hours) Vital Signs Temp Pulse Resp BP Pulse Ox O2 Del Method 10/17/21 21:49 36.5 C 71 20 175/73 H 96 Room Air Resident Activity Tracking Resident Involvement: Resident Care Provided Care Provided: Adult Hospital Medicine
[2021-10-18] MEDS: LEVOTHYROXINE SODIUM 75 MCG TABLET PO SCH (08:09)
[2021-10-18] MEDS: MEMANTINE HCL 10 MG TAB PO SCH ×2 (08:47→19:42)
[2021-10-18] MEDS: UMECLIDINIUM/VILANTEROL 62.5/25MCG 7 PUFFS/INHALER INH SCH (08:48)
[2021-10-18] MEDS: SERTRALINE HCL 100 MG TABLET PO SCH (08:48)
[2021-10-18] MEDS: FLUTICASONE FUROATE 100MCG 14 PUFFS/INHALER INH SCH (08:48)
[2021-10-18] MEDS: PANTOprazole 40 MG TAB PO SCH (08:48)
[2021-10-18] MEDS: RIVASTIGMINE 4.5 MG TD SCH (11:34)
[2021-10-18] MEDS: QUEtiapine FUMARATE 25 MG TABLET PO SCH (19:42)
[2021-10-19] MEDS: MEMANTINE HCL 10 MG TAB PO SCH ×2 (07:34→19:26)
[2021-10-19] MEDS: RIVASTIGMINE 4.5 MG TD SCH (07:35)
[2021-10-19] MEDS: PANTOprazole 40 MG TAB PO SCH (07:35)
[2021-10-19] MEDS: LEVOTHYROXINE SODIUM 75 MCG TABLET PO SCH (07:35)
[2021-10-19] MEDS: UMECLIDINIUM/VILANTEROL 62.5/25MCG 7 PUFFS/INHALER INH SCH (07:36)
[2021-10-19] MEDS: FLUTICASONE FUROATE 100MCG 14 PUFFS/INHALER INH SCH (07:37)
[2021-10-19] MEDS: SERTRALINE HCL 100 MG TABLET PO SCH (07:56)
--- NOTE | 2021-10-19 09:50 | Hospitalist Progress Note ---
Date of Service October 19, 2021 Assessment & Plan (1) Agitation: Plan: 86yo male with a history of dementia, COPD, hypothyroidism, GERD, and TED presents for a mental health evaluation after an episode of agitation on 10/13. Functional decline with acute agitation, behavioral disturbance - Likely due to progressive dementia, no acute precipitant identified via clinical history or workup - Continue psychotropic medications- Zoloft 25 mg daily, Seroquel 100 mg daily - Continue memantine 10 mg BID, home regimen is 28 mg XR daily - Currently no safety risk, pt not agitated and responds well to reorientation/redirection, remains hemodynamically stable - Haldol 5 mg IM q8h PRN for agitation - PT/OT recommending 24 hr care, case management attempting to find placement HERO - Creatinine on admission 1.82 (baseline ~1.3), likely due to reduced PO intake - Trend BMP, avoid nephrotoxins, encourage PO intake Hypothyroidism - TSH on admission elevated to 5.4, fT4 borderline-low at 0.6 - Continue home levothyroxine at 75 mcg daily, consider increasing dose on discharge - Repeat TSH in 4 weeks as outpatient COPD -Respiratory status stable at this time on RA -Continue fluticasone, Anoro GERD -Continue pantoprazole Diet: regular diet Code status: full code DVT ppx: SCDs Dispo: medical, awaiting SNF placement (2) Dementia: (3) Hypothyroidism: (4) GERD (gastroesophageal reflux disease): (5) Fatigue: (6) Elevated serum creatinine: (7) Anxiety: (8) COPD (chronic obstructive pulmonary disease): Admission and Anticipated Discharge Date Admission Date: October 15, 2021 Supervising Physician Co-Signing Physician Notes The patient confirmed daniels portions of the history and physical evaluation. I agree the impression and plan as noted in the resident documentation. Exam 169/90, 69, 18, 36.7, 90% room air Cardiovascular regular Respirations nonlabored Data Sodium 139, potassium 4.1, creatinine 1.58 Assessment Altered mental status Agitation/dementia/anxiety HERO Hypothyroidism Placement efforts continue Continue memantine to 10 mg p.o. twice daily (he is on extended release 28 mg at home, which would like him to resume upon discharge) Slightly elevated TSH with low free T4; repeat TSH/free T4 in about 4 weeks, may benefit from Synthroid adjustment Subjective No acute events overnight. Pt feeling well. Sitter at bedside stated he has not demonstrated any agitation, some mild improvement in confusion. Pt denies somatic complaints. He would like to go home and see his family but not as fixated on this issue today. Very polite and cooperative on evaluation. Review of Systems Review of Systems: Per subjective Physical Exam Physical Exam: Constitutional: well-appearing, no acute distress HEENT: NCAT, no conjunctival injection CV: regular rhythm, no murmur appreciated, extremities well-perfused, no LE edema Resp: CTABL, no wheezes/rales/rhonchi appreciated, no increased work of breathing GI: soft, nondistended, nontender MSK: no gross deformities appreciated Skin: warm, dry, no rash appreciated Neuro: alert, oriented to person, place but not time, or situation; no focal neurologic deficit appreciated Psych: euthymic, calm Results & Data Results & Data ([facility]) Vital Signs (Past 12 Hours) Vital Signs Temp Pulse Resp BP Pulse Ox O2 Del Method 10/19/21 07:22 36.7 C 69 18 169/90 H 99 Room Air Resident Activity Tracking Resident Involvement: Resident Care Provided Care Provided: Adult Hospital Medicine
[2021-10-19 11:38] LABS: BUN Creatinine Ratio 11.4 (10-20); Calcium 9.7 mg/dl (8.5-10.1); Creatinine Clr Calc Pharmacy 33.4 ml/min; Est GFR (African American) 44.6 ml/min; Est GFR (Non-African American) 38.5 ml/min; Potassium 4.1 mmol/L (3.5-5.1)
[2021-10-19] MEDS: QUEtiapine FUMARATE 25 MG TABLET PO SCH (19:26)
[2021-10-20] MEDS: LEVOTHYROXINE SODIUM 75 MCG TABLET PO SCH (07:31)
[2021-10-20] MEDS: PANTOprazole 40 MG TAB PO SCH (08:46)
[2021-10-20] MEDS: MEMANTINE HCL 10 MG TAB PO SCH ×2 (08:46→19:54)
[2021-10-20] MEDS: SERTRALINE HCL 100 MG TABLET PO SCH (08:47)
[2021-10-20] MEDS: RIVASTIGMINE 4.5 MG TD SCH (08:47)
[2021-10-20] MEDS: UMECLIDINIUM/VILANTEROL 62.5/25MCG 7 PUFFS/INHALER INH SCH (08:48)
[2021-10-20] MEDS: FLUTICASONE FUROATE 100MCG 14 PUFFS/INHALER INH SCH (08:48)
--- NOTE | 2021-10-20 10:54 | Hospitalist Progress Note ---
Date of Service October 20, 2021 Assessment & Plan (1) Agitation: Plan: 86yo male with a history of dementia, COPD, hypothyroidism, GERD, and TED presents for a mental health evaluation after an episode of agitation on 10/13. Functional decline with altered mental status - Likely due to progressive dementia, no acute precipitant identified via clinical history or workup - Continue psychotropic medications- Zoloft 25 mg daily, Seroquel 100 mg daily - Continue memantine 10 mg BID, home regimen is 28 mg XR daily - Currently no safety risk, pt not agitated and responds well to reorientation/redirection, remains hemodynamically stable - Haldol 5 mg IM q8h PRN for agitation - PT/OT recommending 24 hr care, case management attempting to find placement HERO - Creatinine on admission 1.82 (baseline ~1.3), likely due to reduced PO intake - 1.58 on 10/19, no longer trending BMP Hypothyroidism - TSH on admission elevated to 5.4, fT4 borderline-low at 0.6 - Continue home levothyroxine at 75 mcg daily, consider increasing dose on discharge - Repeat TSH in 4 weeks as outpatient COPD -Respiratory status stable at this time on RA -Continue fluticasone, Anoro GERD -Continue pantoprazole Diet: regular diet Code status: full code DVT ppx: SCDs Dispo: medical, awaiting SNF placement (2) Dementia: (3) Hypothyroidism: (4) GERD (gastroesophageal reflux disease): (5) Fatigue: (6) Elevated serum creatinine: (7) Anxiety: (8) COPD (chronic obstructive pulmonary disease): Admission and Anticipated Discharge Date Admission Date: October 15, 2021 Supervising Physician Co-Signing Physician Notes The patient confirmed daniels portions of the history and physical evaluation. I agree the impression and plan as noted in the resident documentation. At the time of our exam, the patient was being visited by a friend of nearly 60 years; unfortunately, the patient did not recognize his friend. The patient himself is more awake and talkative today, however, he told very repetitive statements/stories during the 10 to 15-minute visit. Exam 160/90, 71, 16, 36.8, 97% room air Cardiovascular regular Respirations nonlabored Assessment Altered mental status Agitation/dementia/anxiety HERO Hypothyroidism Placement efforts continue Continue memantine to 10 mg p.o. twice daily (he is on extended release 28 mg at home, which would like him to resume upon discharge) Slightly elevated TSH with low free T4; repeat TSH/free T4 in about 4 weeks, may benefit from Synthroid adjustment Subjective No acute events overnight. Pt feeling well. Sitter at bedside stated he has not demonstrated any agitation.. Pt denies somatic complaints. He misses his family and would like to go home. Continued to ask if he did anything wrong that put him in the hospital. Review of Systems Review of Systems: Per subjective Physical Exam Physical Exam: Constitutional: well-appearing, no acute distress HEENT: NCAT, no conjunctival injection CV: regular rhythm, no murmur appreciated, extremities well-perfused, no LE edema Resp: CTABL, no wheezes/rales/rhonchi appreciated, no increased work of breathing GI: soft, nondistended, nontender MSK: no gross deformities appreciated Skin: warm, dry, no rash appreciated Neuro: alert, oriented to person, place but not time, or situation; no focal neurologic deficit appreciated Psych: euthymic, calm Results & Data Results & Data ([facility]) Vital Signs (Past 12 Hours) Vital Signs Temp Pulse Resp BP Pulse Ox O2 Del Method 10/20/21 07:52 36.5 C 80 16 145/86 H 97 Room Air
[2021-10-20] MEDS: QUEtiapine FUMARATE 25 MG TABLET PO SCH (19:54)
[2021-10-21] MEDS: LEVOTHYROXINE SODIUM 75 MCG TABLET PO SCH (06:04)
[2021-10-21] MEDS: SERTRALINE HCL 100 MG TABLET PO SCH (08:01)
[2021-10-21] MEDS: MEMANTINE HCL 10 MG TAB PO SCH ×2 (08:01→19:50)
[2021-10-21] MEDS: PANTOprazole 40 MG TAB PO SCH (08:01)
[2021-10-21] MEDS: RIVASTIGMINE 4.5 MG TD SCH (08:02)
[2021-10-21] MEDS: FLUTICASONE FUROATE 100MCG 14 PUFFS/INHALER INH SCH (08:05)
[2021-10-21] MEDS: UMECLIDINIUM/VILANTEROL 62.5/25MCG 7 PUFFS/INHALER INH SCH (10:02)
--- NOTE | 2021-10-21 12:17 | Hospitalist Progress Note ---
Date of Service October 21, 2021 Assessment & Plan (1) Agitation: Plan: 86yo male with a history of dementia, COPD, hypothyroidism, GERD, and TED presents for a mental health evaluation after an episode of agitation on 10/13. Functional decline with altered mental status - Likely due to progressive dementia, no acute precipitant identified via clinical history or workup - Continue psychotropic medications- Zoloft 25 mg daily, Seroquel 100 mg daily - Continue memantine 10 mg BID, home regimen is 28 mg XR daily - Currently no safety risk, pt not agitated and responds well to reorientation/redirection, remains hemodynamically stable - Haldol 5 mg IM q8h PRN for agitation - PT/OT recommending 24 hr care, case management attempting to find placement -Continue 1:1 for now as pt will be in memory unit, this will not affect his placement search HERO - Creatinine on admission 1.82 (baseline ~1.3), likely due to reduced PO intake - 1.58 on 10/19, no longer trending BMP Hypothyroidism - TSH on admission elevated to 5.4, fT4 borderline-low at 0.6 - Continue home levothyroxine at 75 mcg daily, consider increasing dose on discharge - Repeat TSH in 4 weeks as outpatient COPD -Respiratory status stable at this time on RA -Continue fluticasone, Anoro GERD -Continue pantoprazole Diet: regular diet Code status: full code DVT ppx: SCDs Dispo: medical, awaiting SNF placement (2) Dementia: (3) Hypothyroidism: (4) GERD (gastroesophageal reflux disease): (5) Fatigue: (6) Elevated serum creatinine: (7) Anxiety: (8) COPD (chronic obstructive pulmonary disease): Admission and Anticipated Discharge Date Admission Date: October 15, 2021 Supervising Physician Co-Signing Physician Notes Patient seen and examined independently of PGY-2 Dr. Royal. Agree with history, exam findings, assessment and plan of care as outlined. In brief, Mr. Garrison is an 86 year old male with history of dementia, COPD, hypothyroid, GERD and TED admitted for mental health evaluation after an episode of agitation on 10/13. No complaints today. VS and nursing notes reviewed. Nontoxic appearing. Conversational. Labs and imaging reviewed. 1. Functional decline with altered mental status secondary to progressive dementia. Continue Zoloft 25mg, Seroquel 100mg daily. Continue memantine 10mg BID. Haldol 5mg PRN agitation. 2. HERO. Resolved. 3. COPD. Continue home fluticasone and Anoro. 4. Hypothyroid. Continue home levothyroxine 75mcg. Will need repeat TSH in 4 weeks. Dispo: pending placement. Appreciate care management's efforts in this. Subjective No acute events overnight. Pt feeling well. Sitter at bedside stated he has not demonstrated any agitation. Pt denies somatic complaints. He states he's unsure why he's in hospital, referring to it as "lockup". States he is an honest, God-fearing man who doesn't drink, smoke or curse and doesn't want to cause trouble for anyone; he only wants to see his and family again. This is similar to what he stated for the past 2 days. Review of Systems Review of Systems: Per subjective Physical Exam Physical Exam: Constitutional: well-appearing, no acute distress HEENT: NCAT, no conjunctival injection CV: regular rhythm, no murmur appreciated, extremities well-perfused, no LE edema Resp: CTABL, no wheezes/rales/rhonchi appreciated, no increased work of breathing GI: soft, nondistended, nontender MSK: no gross deformities appreciated Skin: warm, dry, no rash appreciated Neuro: alert, oriented to person, place but not time, or situation; no focal neurologic deficit appreciated Psych: euthymic, calm Resident Activity Tracking Resident Involvement: Resident Care Provided Care Provided: Adult Hospital Medicine
[2021-10-21] MEDS: QUEtiapine FUMARATE 25 MG TABLET PO SCH (19:50)
[2021-10-22] MEDS: LEVOTHYROXINE SODIUM 75 MCG TABLET PO SCH (05:17)
[2021-10-22] MEDS: SERTRALINE HCL 100 MG TABLET PO SCH (08:19)
[2021-10-22] MEDS: MEMANTINE HCL 10 MG TAB PO SCH ×2 (08:19→20:43)
[2021-10-22] MEDS: PANTOprazole 40 MG TAB PO SCH (08:19)
[2021-10-22] MEDS: FLUTICASONE FUROATE 100MCG 14 PUFFS/INHALER INH SCH (08:20)
[2021-10-22] MEDS: UMECLIDINIUM/VILANTEROL 62.5/25MCG 7 PUFFS/INHALER INH SCH (08:20)
[2021-10-22] MEDS: RIVASTIGMINE 4.5 MG TD SCH (08:24)
--- NOTE | 2021-10-22 10:33 | Hospitalist Progress Note ---
Date of Service October 22, 2021 Assessment & Plan (1) Agitation: Plan: 86yo male with a history of dementia, COPD, hypothyroidism, GERD, and TED presents for a mental health evaluation after an episode of agitation on 10/13. Functional decline with altered mental status - Likely due to progressive dementia, no acute precipitant identified via clinical history or workup - Continue psychotropic medications- Zoloft 25 mg daily, Seroquel 100 mg daily - Continue memantine 10 mg BID, home regimen is 28 mg XR daily - Currently no safety risk, pt not agitated and responds well to reorientation/redirection, remains hemodynamically stable - Haldol 5 mg IM q8h PRN for agitation - PT/OT recommending 24 hr care, case management attempting to find placement -Continue 1:1 for now as pt will be in memory unit, this will not affect his placement search HERO - Creatinine on admission 1.82 (baseline ~1.3), likely due to reduced PO intake - 1.58 on 10/19, no longer trending BMP Hypothyroidism - TSH on admission elevated to 5.4, fT4 borderline-low at 0.6 - Continue home levothyroxine at 75 mcg daily, consider increasing dose on discharge - Repeat TSH in 4 weeks as outpatient COPD -Respiratory status stable at this time on RA -Continue fluticasone, Anoro GERD -Continue pantoprazole Diet: regular diet Code status: full code DVT ppx: SCDs Dispo: medical, awaiting SNF placement (2) Dementia: (3) Hypothyroidism: (4) GERD (gastroesophageal reflux disease): (5) Fatigue: (6) Elevated serum creatinine: (7) Anxiety: (8) COPD (chronic obstructive pulmonary disease): Admission and Anticipated Discharge Date Admission Date: October 15, 2021 Supervising Physician Co-Signing Physician Notes Patient seen and examined independently of PGY-2 Dr. Curry. Agree with history, exam findings, assessment and plan of care as outlined. In brief, Mr. Garrison is an 86 year old male with history of dementia, COPD, hypothyroid, GERD and TED admitted for mental health evaluation after an episode of agitation on 10/13. Asking why he is being locked up here. Repeatedly told me that he and his have been "a long time" and have never had a fight. "I have never cheated or lied", "We love each other very much". He tells me that he lives in [facility] (which he does not...he has not lived there since 1983). He tells me that if he cannot go home "this will slowly kill me". Spoke with , Kristi, in the hallway as well without Balaji. She is not able to care for Balaji at home. He has started to accuse her of stealing his money. Most recently, she describes an episode where he [place] the [place] to mow. It sounds like he may have fallen out of the mower or rolled over in the mower a couple of weeks ago, injuring his left shoulder/elbow. She tells me that the area was very swollen, but he refused medical attention. She also relays that he has missed many doctor's appointments. VS and nursing notes reviewed. Nontoxic appearing. Conversational, but very circular conversation due to his significant memory impairment. When asked questions he is not able to answer, he distracts with changing the subject or asking again about going home. Labs and imaging reviewed. 1. Functional decline with altered mental status secondary to progressive dementia. Continue Zoloft 25mg, Seroquel 100mg daily. Continue memantine 10mg BID. Haldol 5mg PRN agitation. I spent 45 minutes with Balaji and his family this afternoon explaining the course of dementia. I discussed with Balaji the importance of his safety--this is the main reason he cannot go home with his . 2. left shoulder and elbow injury. Ordered x-rays for left shoulder and elbow for tomorrow AM. 3. HERO. Resolved. 4. COPD. Continue home fluticasone and Anoro. 5. Hypothyroid. Continue home levothyroxine 75mcg. Will need repeat TSH in 4 weeks. Dispo: pending placement. Appreciate care management's efforts in this. Subjective No acute events overnight. Per sitter, no episodes of agitation. Patient wants to know why he is here. He would like to speak with his family, as he feels that there probably worried sick about him. This conversation was had approximately 5 times over 5-minute encounter. Otherwise, review of systems negative. Review of Systems Review of Systems: All systems reviewed & are unremarkable except as noted in HPI & below Physical Exam Physical Exam: Constitutional: well-appearing, no acute distress HEENT: NCAT, no conjunctival injection CV: regular rhythm, no murmur appreciated, extremities well-perfused, no LE edema Resp: CTABL, no wheezes/rales/rhonchi appreciated, no increased work of breathing GI: soft, nondistended, nontender MSK: no gross deformities appreciated Skin: warm, dry, no rash appreciated Neuro: alert, oriented to person, place but not time, or situation; no focal neurologic deficit appreciated Psych: euthymic, calm Results & Data Results & Data ([facility]) Vital Signs (Past 12 Hours) Vital Signs Temp Pulse Resp BP Pulse Ox O2 Del Method 10/22/21 07:46 36.9 C 76 16 154/73 H 99 Room Air Resident Activity Tracking Resident Involvement: Resident Care Provided Care Provided: Adult Hospital Medicine
[2021-10-22] MEDS: QUEtiapine FUMARATE 25 MG TABLET PO SCH (20:44)
[2021-10-23] MEDS: LEVOTHYROXINE SODIUM 75 MCG TABLET PO SCH (06:39)
--- NOTE | 2021-10-23 07:10 | XRay Report ---
LEFT ELBOW 3 VIEWS CLINICAL HISTORY: Left elbow pain. FINDINGS: 3 portable views of the left elbow are obtained. No prior studies are available for compari son at the time of dictation. The skeletal structures are osteopenic. No fracture is seen. There is n o joint effusion. A tiny enthesophyte is noted at the triceps insertion. The overlying soft tissues a re within normal limits. IMPRESSION: No acute bony abnormality is identified. Electronically signed by: Jakub Chavis M.D. 10/23/2021 7:09 AM
--- NOTE | 2021-10-23 07:11 | XRay Report ---
LEFT SHOULDER 3 VIEWS CLINICAL HISTORY: Left shoulder pain. FINDINGS: 3 portable views of the left shoulder are obtained. No prior studies are available for mason dodson at the time of dictation. The skeletal structures are osteopenic. There is no radiographic brooklynn dence of fracture or dislocation. Mild osteoarthritic change is seen at the glenohumeral articulation . Productive degenerative change is noted at the acromioclavicular joint. The overlying soft tissues are within normal limits. The visualized left lung parenchyma appears clear. IMPRESSION: No acute bony abnormality is identified. Electronically signed by: Jakub Chavis M.D. 10/23/2021 7:10 AM
[2021-10-23] MEDS: MEMANTINE HCL 10 MG TAB PO SCH ×2 (10:32→20:36)
[2021-10-23] MEDS: FLUTICASONE FUROATE 100MCG 14 PUFFS/INHALER INH SCH (10:32)
[2021-10-23] MEDS: PANTOprazole 40 MG TAB PO SCH (10:33)
[2021-10-23] MEDS: SERTRALINE HCL 100 MG TABLET PO SCH (10:33)
[2021-10-23] MEDS: UMECLIDINIUM/VILANTEROL 62.5/25MCG 7 PUFFS/INHALER INH SCH (10:34)
[2021-10-23] MEDS: RIVASTIGMINE 4.5 MG TD SCH (10:36)
--- NOTE | 2021-10-23 17:33 | Hospitalist Progress Note ---
Date of Service October 23, 2021 Assessment & Plan (1) Agitation: Plan: 86yo male with a history of dementia, COPD, hypothyroidism, GERD, and TED presents for a mental health evaluation after an episode of agitation on 10/13. Functional decline with altered mental status - Likely due to progressive dementia, no acute precipitant identified via clinical history or workup - Continue psychotropic medications- Zoloft 25 mg daily, Seroquel 100 mg daily - Continue memantine 10 mg BID, home regimen is 28 mg XR daily - Currently no safety risk, pt not agitated and responds well to reorientation/redirection, remains hemodynamically stable - Haldol 5 mg IM q8h PRN for agitation - PT/OT recommending 24 hr care, case management attempting to find placement -Continue 1:1 for now as pt will be in memory unit, this will not affect his placement search [facility] - Creatinine on admission 1.82 (baseline ~1.3), likely due to reduced PO intake - 1.58 on 10/19, no longer trending BMP Hypothyroidism - TSH on admission elevated to 5.4, fT4 borderline-low at 0.6 - Continue home levothyroxine at 75 mcg daily, consider increasing dose on discharge - Repeat TSH in 4 weeks as outpatient COPD -Respiratory status stable at this time on RA -Continue fluticasone, Anoro GERD -Continue pantoprazole Diet: regular diet Code status: full code DVT ppx: SCDs Dispo: medical, awaiting SNF placement (2) Dementia: (3) Hypothyroidism: (4) GERD (gastroesophageal reflux disease): (5) Fatigue: (6) Elevated serum creatinine: (7) Anxiety: (8) COPD (chronic obstructive pulmonary disease): Admission and Anticipated Discharge Date Admission Date: October 15, 2021 Supervising Physician Co-Signing Physician Notes Patient seen and examined independently of PGY-2 Dr. Curry. Agree with history, exam findings, assessment and plan of care as outlined. In brief, Mr. Garrison is an 86 year old male with history of dementia, COPD, hypothyroid, GERD and TED admitted for mental health evaluation after an episode of agitation on 10/13. Asking why he is here in "lock up". VS and nursing notes reviewed. Nontoxic appearing. Conversational, but very circular conversation due to his significant memory impairment. When asked questions he is not able to answer, he distracts with changing the subject or asking again about going home. Labs and imaging reviewed. 1. Functional decline with altered mental status secondary to progressive dementia. Continue Zoloft 25mg, Seroquel 100mg daily. Continue memantine 10mg BID. Haldol 5mg PRN agitation. 2. left shoulder and elbow injury. x-rays without acute or subacute fracture. 3. HERO. Resolved. 4. COPD. Continue home fluticasone and Anoro. 5. Hypothyroid. Continue home levothyroxine 75mcg. Will need repeat TSH in 4 weeks. Dispo: pending placement in memory unit. Appreciate care management's efforts in this. Subjective No acute events overnight. Per nursing, no episodes of agitation. Patient is currently sleeping resting comfortably. No acute concerns at this time. Review of Systems Review of Systems: All systems reviewed & are unremarkable except as noted in HPI & below Physical Exam Physical Exam: Constitutional: well-appearing, no acute distress HEENT: NCAT, no conjunctival injection CV: regular rhythm, no murmur appreciated, extremities well-perfused, no LE edema Resp: CTABL, no wheezes/rales/rhonchi appreciated, no increased work of breathing GI: soft, nondistended, nontender MSK: no gross deformities appreciated Skin: warm, dry, no rash appreciated Neuro: alert, oriented to person, place but not time, or situation; no focal neurologic deficit appreciated Psych: euthymic, calm Results & Data Results & Data ([facility]) Vital Signs (Past 12 Hours) Vital Signs Temp Pulse Resp BP Pulse Ox O2 Del Method 10/23/21 10:47 36.7 C 74 16 154/68 H 99 Room Air Resident Activity Tracking Resident Involvement: Resident Care Provided Care Provided: Adult Hospital Medicine
[2021-10-23] MEDS: QUEtiapine FUMARATE 25 MG TABLET PO SCH (20:36)
[2021-10-24] MEDS: LEVOTHYROXINE SODIUM 75 MCG TABLET PO SCH (06:35)
[2021-10-24] MEDS: UMECLIDINIUM/VILANTEROL 62.5/25MCG 7 PUFFS/INHALER INH SCH (09:41)
[2021-10-24] MEDS: FLUTICASONE FUROATE 100MCG 14 PUFFS/INHALER INH SCH (09:41)
[2021-10-24] MEDS: RIVASTIGMINE 4.5 MG TD SCH (09:41)
[2021-10-24] MEDS: MEMANTINE HCL 10 MG TAB PO SCH ×2 (09:42→20:12)
[2021-10-24] MEDS: PANTOprazole 40 MG TAB PO SCH (09:42)
[2021-10-24] MEDS: SERTRALINE HCL 100 MG TABLET PO SCH (09:42)
--- NOTE | 2021-10-24 13:40 | Hospitalist Progress Note ---
Date of Service October 24, 2021 Assessment & Plan (1) Agitation: Plan: 86yo male with a history of dementia, COPD, hypothyroidism, GERD, and TED presents for a mental health evaluation after an episode of agitation on 10/13. Functional decline with altered mental status - Likely due to progressive dementia, no acute precipitant identified via clinical history or workup - Continue psychotropic medications- Zoloft 25 mg daily, Seroquel 100 mg daily - Continue memantine 10 mg BID, home regimen is 28 mg XR daily - Currently no safety risk, pt not agitated and responds well to reorientation/redirection, remains hemodynamically stable - Haldol 5 mg IM q8h PRN for agitation - PT/OT recommending 24 hr care, case management attempting to find placement -Continue 1:1 for now as pt will be in memory unit, this will not affect his placement search HER[facility] - Creatinine on admission 1.82 (baseline ~1.3), likely due to reduced PO intake - 1.58 on 10/19, no longer trending BMP Hypothyroidism - TSH on admission elevated to 5.4, fT4 borderline-low at 0.6 - Continue home levothyroxine at 75 mcg daily, consider increasing dose on discharge - Repeat TSH in 4 weeks as outpatient COPD -Respiratory status stable at this time on RA -Continue fluticasone, Anoro GERD -Continue pantoprazole Diet: regular diet Code status: full code DVT ppx: SCDs Dispo: medical, awaiting SNF placement for PT and care (2) Dementia: (3) Hypothyroidism: (4) GERD (gastroesophageal reflux disease): (5) Fatigue: (6) Elevated serum creatinine: (7) Anxiety: (8) COPD (chronic obstructive pulmonary disease): Admission and Anticipated Discharge Date Admission Date: October 15, 2021 Supervising Physician Co-Signing Physician Notes I personally examined the patient and verified all daniels points of history and exam, discussed case, and agree with decision making with Dr Wade no meaningful HPI or ROS. wonders what he did to end up here vitals noted nad heent nc at mmm breathing unlabored no accessory muscles good effort skin no rashes no pallor or icterus 1. Functional decline with altered mental status secondary to progressive dementia. Continue Zoloft 25mg, Seroquel 100mg daily. Continue memantine 10mg BID. Haldol 5mg PRN agitation - has not needed. 2. left shoulder and elbow injury. x-rays without acute or subacute fracture. 3. HERO. Resolved. 4. COPD. Continue home fluticasone and Anoro. 5. Hypothyroid. Continue home levothyroxine 75mcg. Will need repeat TSH in 4 weeks. Dispo: pending placement in memory unit. Appreciate care management's efforts in this. Subjective Patient seen at bedside this morning. No acute events reported overnight. Patient remains on agitated and is pleasant. No complaints at this time. Review of Systems Review of Systems: All systems reviewed & are unremarkable except as noted in HPI & below Physical Exam Constitutional: well developed, well nourished and cooperative; no acute distress Eyes: + anicteric sclerae Neck: normal visual inspection Respiratory: normal respiratory effort, lungs clear to auscultation Cardiovascular: Rate/Rhythm: regular rate and regular rhythm Heart Sounds: + murmur Gastrointestinal (Abdomen): normal bowel sounds, soft, nontender, no hepatosplenomegaly Musculoskeletal: Head/Neck/Chest: normocephalic and head atraumatic Skin: no rashes, warm and dry Psychiatric: Affect: euthymic affect Results & Data Results & Data ([facility]) Vital Signs (Past 12 Hours) Vital Signs Temp Pulse Resp BP Pulse Ox O2 Del Method 10/24/21 10:32 36.9 C 74 18 136/64 99 Room Air
--- NOTE | 2021-10-24 19:07 | Billing Data ---
Date of Service October 24, 2021 Coding Level of Care Code 38593 Subseq Hosp Care Lvl 1
[2021-10-24] MEDS: QUEtiapine FUMARATE 25 MG TABLET PO SCH (20:12)
--- NOTE | 2021-10-25 06:35 | Hospitalist Progress Note ---
Date of Service October 25, 2021 Assessment & Plan (1) Agitation: Plan: 86yo male with a history of dementia, COPD, hypothyroidism, GERD, and TED presents for a mental health evaluation after an episode of agitation on 10/13. Functional decline with altered mental status - Likely due to progressive dementia, no acute precipitant identified via clinical history or workup - Continue psychotropic medications- Zoloft 25 mg daily, Seroquel 100 mg daily - Continue memantine 10 mg BID, home regimen is 28 mg XR daily - Currently no safety risk, pt not agitated and responds well to reorientation/redirection, remains hemodynamically stable - Haldol 5 mg IM q8h PRN for agitation - PT/OT recommending 24 hr care, case management attempting to find placement -Continue 1:1 for now as pt will be in memory unit, this will not affect his placement search -Received COVID booster yesterday, still pending placement HERO - Creatinine on admission 1.82 (baseline ~1.3), likely due to reduced PO intake - 1.58 on 10/19, no longer trending BMP Hypothyroidism - TSH on admission elevated to 5.4, fT4 borderline-low at 0.6 - Continue home levothyroxine at 75 mcg daily, consider increasing dose on discharge - Repeat TSH in 4 weeks as outpatient COPD -Respiratory status stable at this time on RA -Continue fluticasone, Anoro GERD -Continue pantoprazole Diet: regular diet Code status: full code DVT ppx: SCDs Dispo: medical, awaiting SNF placement for PT and care (2) Dementia: (3) Hypothyroidism: (4) GERD (gastroesophageal reflux disease): (5) Fatigue: (6) Elevated serum creatinine: (7) Anxiety: (8) COPD (chronic obstructive pulmonary disease): Admission and Anticipated Discharge Date Admission Date: October 15, 2021 Supervising Physician Co-Signing Physician Notes I personally examined the patient and verified all daniels points of history and exam, discussed case, and agree with decision making with Dr Wade no meaningful HPI or ROS. vitals noted nad heent nc at mmm breathing unlabored no accessory muscles good effort skin no rashes no pallor or icterus 1. Functional decline with altered mental status secondary to progressive dementia. Continue Zoloft 25mg, Seroquel 100mg daily. Continue memantine 10mg BID. Haldol 5mg PRN agitation -still has not needed. 2. left shoulder and elbow injury. x-rays without acute or subacute fracture. 3. HERO. Resolved. 4. COPD. Continue home fluticasone and Anoro. 5. Hypothyroid. Continue home levothyroxine 75mcg. Will need repeat TSH in 4 weeks. Dispo: pending placement in memory unit. Appreciate case management's efforts in this. Subjective Patient seen at bedside this morning. No acute events reported overnight. Patient doing well and remains euthymic. No concerns about pain or discomfort from the patient this morning. No other complaints at this time. Review of Systems Review of Systems: Unobtainable due to cognitive status Physical Exam Constitutional: well developed, well nourished and cooperative; no acute distress Eyes: + anicteric sclerae Neck: normal visual inspection Respiratory: normal respiratory effort, lungs clear to auscultation Cardiovascular: Rate/Rhythm: regular rate and regular rhythm Heart Sounds: + murmur Gastrointestinal (Abdomen): normal bowel sounds, soft, nontender, no hepatosplenomegaly Musculoskeletal: Head/Neck/Chest: normocephalic and head atraumatic Skin: no rashes, warm and dry Psychiatric: Affect: euthymic affect Results & Data Results & Data ([facility]) Vital Signs (Past 12 Hours) Vital Signs Temp Pulse Resp BP Pulse Ox O2 Del Method 10/24/21 19:05 37.2 C 83 18 138/76 97 Room Air
[2021-10-25] MEDS: LEVOTHYROXINE SODIUM 75 MCG TABLET PO SCH (06:49)
[2021-10-25] MEDS: FLUTICASONE FUROATE 100MCG 14 PUFFS/INHALER INH SCH (08:58)
[2021-10-25] MEDS: SERTRALINE HCL 100 MG TABLET PO SCH (08:58)
[2021-10-25] MEDS: PANTOprazole 40 MG TAB PO SCH (08:59)
[2021-10-25] MEDS: MEMANTINE HCL 10 MG TAB PO SCH ×2 (08:59→20:13)
[2021-10-25] MEDS: UMECLIDINIUM/VILANTEROL 62.5/25MCG 7 PUFFS/INHALER INH SCH (09:00)
[2021-10-25] MEDS: RIVASTIGMINE 4.5 MG TD SCH (09:00)
[2021-10-25] MEDS ORDERED: POLYETHYLENE (MIRALAX) 17 GM PACK PO PRN ×2 (16:28→16:29)
--- NOTE | 2021-10-25 18:59 | Billing Data ---
Date of Service October 25, 2021 Coding Level of Care Code 22465 Subseq Hosp Care Lvl 1
[2021-10-25] MEDS: QUEtiapine FUMARATE 25 MG TABLET PO SCH (20:14)
[2021-10-26] MEDS: LEVOTHYROXINE SODIUM 75 MCG TABLET PO SCH (06:23)
[2021-10-26] MEDS: SERTRALINE HCL 100 MG TABLET PO SCH (08:17)
[2021-10-26] MEDS: UMECLIDINIUM/VILANTEROL 62.5/25MCG 7 PUFFS/INHALER INH SCH (08:17)
[2021-10-26] MEDS: MEMANTINE HCL 10 MG TAB PO SCH ×2 (08:17→22:20)
[2021-10-26] MEDS: PANTOprazole 40 MG TAB PO SCH (08:17)
[2021-10-26] MEDS: FLUTICASONE FUROATE 100MCG 14 PUFFS/INHALER INH SCH (08:17)
[2021-10-26] MEDS: RIVASTIGMINE 4.5 MG TD SCH (08:19)
--- NOTE | 2021-10-26 13:10 | Hospitalist Progress Note ---
Date of Service October 26, 2021 Assessment & Plan (1) Agitation: Plan: 86yo male with a history of dementia, COPD, hypothyroidism, GERD, and TED presents for a mental health evaluation after an episode of agitation on 10/13. Functional decline with altered mental status - Likely due to progressive dementia, no acute precipitant identified via clinical history or workup - Continue psychotropic medications- Zoloft 25 mg daily, Seroquel 100 mg daily - Continue memantine 10 mg BID, home regimen is 28 mg XR daily - Currently no safety risk, pt not agitated and responds well to reorientation/redirection, remains hemodynamically stable - Haldol 5 mg IM q8h PRN for agitation, has not been used since being admitted. - PT/OT recommending 24 hr care, case management attempting to find placement -Continue 1:1 for now as pt will be in memory unit, this will not affect his placement search HERO - Creatinine on admission 1.82 (baseline ~1.3), likely due to reduced PO intake - 1.58 on 10/19, no longer trending BMP Hypothyroidism - TSH on admission elevated to 5.4, fT4 borderline-low at 0.6 - Continue home levothyroxine at 75 mcg daily, consider increasing dose on discharge - Repeat TSH in 4 weeks as outpatient COPD -Respiratory status stable at this time on RA -Continue fluticasone, Anoro GERD -Continue pantoprazole Diet: regular diet Code status: full code DVT ppx: SCDs Dispo: medical, awaiting SNF placement for PT and care (2) Dementia: (3) Hypothyroidism: (4) GERD (gastroesophageal reflux disease): (5) Fatigue: (6) Elevated serum creatinine: (7) Anxiety: (8) COPD (chronic obstructive pulmonary disease): Admission and Anticipated Discharge Date Admission Date: October 15, 2021 Supervising Physician Co-Signing Physician Notes I personally examined the patient and verified all daniels points of history and exam, discussed case, and agree with decision making with Dr Wade again no meaningful HPI or ROS. vitals noted nad heent nc at mmm breathing unlabored no accessory muscles good effort skin no rashes no pallor or icterus 1. Functional decline with altered mental status secondary to progressive dementia. Continue Zoloft 25mg, Seroquel 100mg daily. Continue memantine 10mg BID. has not shown/i have not witnessed or been reported of any concerning agitation/aggression 2. left shoulder and elbow injury. x-rays without acute or subacute fracture. 3. HERO. Resolved. 4. COPD. Continue home fluticasone and Anoro. 5. Hypothyroid. Continue home levothyroxine 75mcg. Will need repeat TSH in ~3 weeks. Dispo: pending placement in memory unit. Appreciate case management's efforts in this. Subjective Patient seen at bedside this morning no acute events reported overnight. Patient again friendly on encounter and exam. No complaints at this time. Does wonder why he is here but is easily redirected. Still in pursuit of placement for him. Nothing else to report at this time. Review of Systems Review of Systems: Unobtainable due to cognitive status Physical Exam Constitutional: well developed, well nourished and cooperative; no acute distress Eyes: + anicteric sclerae Neck: normal visual inspection Respiratory: normal respiratory effort, lungs clear to auscultation Cardiovascular: Rate/Rhythm: regular rate and regular rhythm Heart Sounds: + murmur Gastrointestinal (Abdomen): normal bowel sounds, soft, nontender, no hepatosplenomegaly Musculoskeletal: Head/Neck/Chest: normocephalic and head atraumatic Skin: no rashes, warm and dry Psychiatric: Affect: euthymic affect Results & Data Results & Data ([facility]) Vital Signs (Past 12 Hours) Vital Signs Temp Pulse Resp BP Pulse Ox O2 Del Method 10/26/21 11:17 36.9 C 71 18 149/72 H 99 Room Air 10/26/21 08:16 37 C 71 16 135/77 99 Room Air
--- NOTE | 2021-10-26 18:43 | Billing Data ---
Date of Service October 26, 2021 Coding Level of Care Code 83163 Subseq Hosp Care Lvl 1
[2021-10-26] MEDS: QUEtiapine FUMARATE 25 MG TABLET PO SCH (22:20)
[2021-10-27] MEDS: LEVOTHYROXINE SODIUM 75 MCG TABLET PO SCH (06:29)
[2021-10-27] MEDS: UMECLIDINIUM/VILANTEROL 62.5/25MCG 7 PUFFS/INHALER INH SCH (08:56)
[2021-10-27] MEDS: FLUTICASONE FUROATE 100MCG 14 PUFFS/INHALER INH SCH (08:57)
[2021-10-27] MEDS: MEMANTINE HCL 10 MG TAB PO SCH ×2 (08:57→20:03)
[2021-10-27] MEDS: PANTOprazole 40 MG TAB PO SCH (08:57)
[2021-10-27] MEDS: SERTRALINE HCL 100 MG TABLET PO SCH (08:57)
[2021-10-27] MEDS: RIVASTIGMINE 4.5 MG TD SCH (08:58)
--- NOTE | 2021-10-27 16:14 | Hospitalist Progress Note ---
Date of Service October 27, 2021 Assessment & Plan (1) Agitation: Plan: 86yo male with a history of dementia, COPD, hypothyroidism, GERD, and TED presents for a mental health evaluation after an episode of agitation on 10/13. Functional decline with altered mental status - Likely due to progressive dementia, no acute precipitant identified via clinical history or workup - Continue psychotropic medications- Zoloft 25 mg daily, Seroquel 100 mg daily - Continue memantine 10 mg BID, home regimen is 28 mg XR daily - Currently no safety risk, pt not agitated and responds well to reorientation/redirection, remains hemodynamically stable - Haldol 5 mg IM q8h PRN for agitation, has not been used since being admitted. - PT/OT recommending 24 hr care, case management attempting to find placement -One-to-one switch to q. 15-minute checks as patient has been without incident during hospitalization. HERO - Creatinine on admission 1.82 (baseline ~1.3), likely due to reduced PO intake - 1.58 on 10/19, no longer trending BMP Hypothyroidism - TSH on admission elevated to 5.4, fT4 borderline-low at 0.6 - Continue home levothyroxine at 75 mcg daily, consider increasing dose on discharge - Repeat TSH in 4 weeks as outpatient COPD -Respiratory status stable at this time on RA -Continue fluticasone, Anoro GERD -Continue pantoprazole Diet: regular diet Code status: full code DVT ppx: SCDs Dispo: medical, awaiting SNF placement for PT and care (2) Dementia: (3) Hypothyroidism: (4) GERD (gastroesophageal reflux disease): (5) Fatigue: (6) Elevated serum creatinine: (7) Anxiety: (8) COPD (chronic obstructive pulmonary disease): Admission and Anticipated Discharge Date Admission Date: October 15, 2021 Supervising Physician Co-Signing Physician Notes I personally examined the patient and verified all daniels points of history and exam, discussed case, and agree with decision making with Dr Wade no meaningful HPI or ROS. vitals noted nad heent nc at mmm breathing unlabored no accessory muscles good effort skin no rashes no pallor or icterus 1. Functional decline with altered mental status secondary to progressive dementia. Continue Zoloft 25mg, Seroquel 100mg daily. Continue memantine 10mg BID. has not shown/i have not witnessed or been reported of any concerning agitation/aggression 2. left shoulder and elbow injury. x-rays without acute or subacute fracture. 3. HERO. Resolved. 4. COPD. Continue home fluticasone and Anoro. 5. Hypothyroid. Continue home levothyroxine 75mcg. Will need repeat TSH in ~3 weeks. Dispo: pending placement in memory unit. Appreciate case management's efforts in this. Subjective Patient seen at bedside this morning. No acute events reported overnight. Patient continues to be nonviolent or aggressive. Has been euthymic. Denies any pain or complaints at this time. Otherwise no other meaningful or new HPI at this time. Review of Systems Review of Systems: Unobtainable due to cognitive status Physical Exam Constitutional: well developed, well nourished and cooperative; no acute distress Eyes: + anicteric sclerae Neck: normal visual inspection Respiratory: normal respiratory effort, lungs clear to auscultation Cardiovascular: Rate/Rhythm: regular rate and regular rhythm Heart Sounds: + murmur Gastrointestinal (Abdomen): normal bowel sounds, soft, nontender, no hepatosplenomegaly Musculoskeletal: Head/Neck/Chest: normocephalic and head atraumatic Skin: no rashes, warm and dry Psychiatric: Affect: euthymic affect
--- NOTE | 2021-10-27 18:40 | Billing Data ---
Date of Service October 27, 2021 Coding Level of Care Code 98035 Subseq Hosp Care Lvl 1
[2021-10-27] MEDS: QUEtiapine FUMARATE 25 MG TABLET PO SCH (20:02)
[2021-10-28] MEDS: LEVOTHYROXINE SODIUM 75 MCG TABLET PO SCH (06:44)
[2021-10-28] MEDS: MEMANTINE HCL 10 MG TAB PO SCH ×2 (07:55→20:35)
[2021-10-28] MEDS: PANTOprazole 40 MG TAB PO SCH (07:55)
[2021-10-28] MEDS: SERTRALINE HCL 100 MG TABLET PO SCH (07:55)
[2021-10-28] MEDS: FLUTICASONE FUROATE 100MCG 14 PUFFS/INHALER INH SCH (07:55)
[2021-10-28] MEDS: RIVASTIGMINE 4.5 MG TD SCH (07:56)
[2021-10-28] MEDS: UMECLIDINIUM/VILANTEROL 62.5/25MCG 7 PUFFS/INHALER INH SCH (07:56)
--- NOTE | 2021-10-28 13:09 | Hospitalist Progress Note ---
Date of Service October 28, 2021 Assessment & Plan (1) Agitation: Plan: 86yo male with a history of dementia, COPD, hypothyroidism, GERD, and TED presents for a mental health evaluation after an episode of agitation on 10/13. Functional decline with altered mental status - Likely due to progressive dementia, no acute precipitant identified via clinical history or workup - Continue psychotropic medications- Zoloft 25 mg daily, Seroquel 100 mg daily - Continue memantine 10 mg BID, home regimen is 28 mg XR daily - Currently no safety risk, pt not agitated and responds well to reorientation/redirection, remains hemodynamically stable - Haldol 5 mg IM q8h PRN for agitation, has not been used since being admitted. - PT/OT recommending 24 hr care, case management attempting to find placement -One-to-one switch to q. 15-minute checks as patient has been without incident during hospitalization. -Waiting to hear back about placement from [place] [facility] per case management HERO - Creatinine on admission 1.82 (baseline ~1.3), likely due to reduced PO intake - 1.58 on 10/19, no longer trending BMP Hypothyroidism - TSH on admission elevated to 5.4, fT4 borderline-low at 0.6 - Continue home levothyroxine at 75 mcg daily, consider increasing dose on discharge - Repeat TSH in 4 weeks as outpatient COPD -Respiratory status stable at this time on RA -Continue fluticasone, Anoro GERD -Continue pantoprazole Diet: regular diet Code status: full code DVT ppx: SCDs Dispo: medical, awaiting SNF placement for PT and care (2) Dementia: (3) Hypothyroidism: (4) GERD (gastroesophageal reflux disease): (5) Fatigue: (6) Elevated serum creatinine: (7) Anxiety: (8) COPD (chronic obstructive pulmonary disease): Admission and Anticipated Discharge Date Admission Date: October 15, 2021 Supervising Physician Co-Signing Physician Notes I personally examined the patient and verified all daniels points of history and exam, discussed case, and agree with decision making with Dr Wade no meaningful HPI or ROS. focused on going home today - fairly hard to redirect. vitals noted nad heent nc at mmm breathing unlabored no accessory muscles good effort skin no rashes no pallor or icterus 1. Functional decline with altered mental status secondary to progressive dementia. Continue Zoloft 25mg, Seroquel 100mg daily. Continue memantine 10mg BID. still has not shown/i have not witnessed or been reported of any concerning agitation/aggression 2. left shoulder and elbow injury. x-rays without acute or subacute fracture. 3. HERO. Resolved. 4. COPD. Continue home fluticasone and Anoro. 5. Hypothyroid. Continue home levothyroxine 75mcg. Will need repeat TSH in ~3 weeks. Dispo: pending placement in memory unit. Appreciate case management's efforts in this. Subjective Patient seen at bedside this morning. No acute events reported overnight. Patient pleasantly demented and euthymic as usual. Continues to wonder why he is here but is easily distractible. States he is not in any pain. Otherwise no meaningful or new HPI to share at this time. Review of Systems Review of Systems: Unobtainable due to cognitive status Physical Exam Constitutional: well developed, well nourished and cooperative; no acute distress Eyes: + anicteric sclerae Neck: normal visual inspection Respiratory: normal respiratory effort, lungs clear to auscultation Cardiovascular: Rate/Rhythm: regular rate and regular rhythm Heart Sounds: + murmur Gastrointestinal (Abdomen): normal bowel sounds, soft, nontender, no hepatosplenomegaly Musculoskeletal: Head/Neck/Chest: normocephalic and head atraumatic Skin: no rashes, warm and dry Psychiatric: Affect: euthymic affect Results & Data Results & Data ([facility]) Vital Signs (Past 12 Hours) Vital Signs Temp Pulse Resp BP Pulse Ox O2 Del Method 10/28/21 08:46 36.6 C 74 16 132/76 98 Room Air
--- NOTE | 2021-10-28 19:30 | Billing Data ---
Date of Service October 28, 2021 Coding Level of Care Code 86194 Subseq Hosp Care Lvl 1
[2021-10-28] MEDS: QUEtiapine FUMARATE 25 MG TABLET PO SCH (20:35)
[2021-10-29] MEDS: LEVOTHYROXINE SODIUM 75 MCG TABLET PO SCH (06:23)
--- NOTE | 2021-10-29 08:05 | Hospitalist Progress Note ---
Date of Service October 29, 2021 Assessment & Plan (1) Agitation: Plan: 86yo male with a history of dementia, COPD, hypothyroidism, GERD, and TED presents for a mental health evaluation after an episode of agitation on 10/13. Functional decline with altered mental status - Likely due to progressive dementia, no acute precipitant identified via clinical history or workup - Continue psychotropic medications- Zoloft 25 mg daily, Seroquel 100 mg daily - Continue memantine 10 mg BID, home regimen is 28 mg XR daily - Currently no safety risk, pt not agitated and responds well to reorientation/redirection, remains hemodynamically stable - Haldol 5 mg IM q8h PRN for agitation, has not been used since being admitted. - PT/OT recommending 24 hr care, case management attempting to find placement -Due to 302 warrant issued, patient must have a one-to-one for this reason. Discussed with psych liaison. -Waiting to hear back about placement from [place] [facility] per case management expect patient to stay over the weekend. HERO - Creatinine on admission 1.82 (baseline ~1.3), likely due to reduced PO intake - 1.58 on 10/19, no longer trending BMP Hypothyroidism - TSH on admission elevated to 5.4, fT4 borderline-low at 0.6 - Continue home levothyroxine at 75 mcg daily, consider increasing dose on discharge - Repeat TSH in 4 weeks as outpatient COPD -Respiratory status stable at this time on RA -Continue fluticasone, Anoro GERD -Continue pantoprazole Diet: regular diet Code status: full code DVT ppx: SCDs Dispo: medical, awaiting SNF placement for PT and care (2) Dementia: (3) Hypothyroidism: (4) GERD (gastroesophageal reflux disease): (5) Fatigue: (6) Elevated serum creatinine: (7) Anxiety: (8) COPD (chronic obstructive pulmonary disease): Admission and Anticipated Discharge Date Admission Date: October 15, 2021 Supervising Physician Co-Signing Physician Notes I personally examined the patient and verified all daniels points of history and exam, discussed case, and agree with decision making with Dr Wade no meaningful HPI or ROS. focused on going home today - 302 disposed vitals noted nad heent nc at mmm breathing unlabored no accessory muscles good effort skin no rashes no pallor or icterus 1. Functional decline with altered mental status secondary to progressive dementia. Continue Zoloft 25mg, Seroquel 100mg daily. Continue memantine 10mg BID. has not shown/i have not witnessed or been reported of any concerning ag itation/aggression 2. left shoulder and elbow injury. x-rays without acute or subacute fracture. 3. HERO. Resolved. 4. COPD. Continue home fluticasone and Anoro. 5. Hypothyroid. Continue home levothyroxine 75mcg. Will need repeat TSH in ~3 weeks. Dispo: pending placement in memory unit. Appreciate case management's efforts in this. Subjective Patient seen at bedside this morning. No acute events reported overnight. Continues to be pleasant and easily distractible. No pain reported at this time. Otherwise no acute complaints. Review of Systems Review of Systems: All systems reviewed & are unremarkable except as noted in HPI & below Physical Exam Constitutional: well developed, well nourished and cooperative; no acute distress Eyes: + anicteric sclerae Neck: normal visual inspection Respiratory: normal respiratory effort, lungs clear to auscultation Cardiovascular: Rate/Rhythm: regular rate and regular rhythm Heart Sounds: + murmur Gastrointestinal (Abdomen): normal bowel sounds, soft, nontender, no hepatosplenomegaly Musculoskeletal: Head/Neck/Chest: normocephalic and head atraumatic Skin: no rashes, warm and dry Psychiatric: Affect: euthymic affect Results & Data Results & Data ([facility]) Vital Signs (Past 12 Hours) Vital Signs Temp Pulse Resp BP Pulse Ox O2 Del Method 10/28/21 20:36 37.3 C 75 18 159/77 H 99 Room Air
[2021-10-29] MEDS: FLUTICASONE FUROATE 100MCG 14 PUFFS/INHALER INH SCH (11:41)
[2021-10-29] MEDS: MEMANTINE HCL 10 MG TAB PO SCH ×2 (11:42→21:23)
[2021-10-29] MEDS: PANTOprazole 40 MG TAB PO SCH (11:42)
[2021-10-29] MEDS: SERTRALINE HCL 100 MG TABLET PO SCH (11:42)
[2021-10-29] MEDS: RIVASTIGMINE 4.5 MG TD SCH (11:43)
[2021-10-29] MEDS: UMECLIDINIUM/VILANTEROL 62.5/25MCG 7 PUFFS/INHALER INH SCH (11:44)
--- NOTE | 2021-10-29 19:47 | Billing Data ---
Date of Service October 29, 2021 Coding Level of Care Code 41246 Subseq Hosp Care Lvl 1
[2021-10-29] MEDS: QUEtiapine FUMARATE 25 MG TABLET PO SCH (21:23)
[2021-10-30] MEDS: LEVOTHYROXINE SODIUM 75 MCG TABLET PO SCH (07:23)
[2021-10-30] MEDS: MEMANTINE HCL 10 MG TAB PO SCH ×2 (08:08→20:20)
[2021-10-30] MEDS: SERTRALINE HCL 100 MG TABLET PO SCH (08:09)
[2021-10-30] MEDS: PANTOprazole 40 MG TAB PO SCH (08:09)
[2021-10-30] MEDS: FLUTICASONE FUROATE 100MCG 14 PUFFS/INHALER INH SCH (08:10)
[2021-10-30] MEDS: RIVASTIGMINE 4.5 MG TD SCH (08:10)
[2021-10-30] MEDS: UMECLIDINIUM/VILANTEROL 62.5/25MCG 7 PUFFS/INHALER INH SCH (09:43)
--- NOTE | 2021-10-30 13:44 | Hospitalist Progress Note ---
Date of Service October 30, 2021 Assessment & Plan (1) Agitation: Plan: 86yo male with a history of dementia, COPD, hypothyroidism, GERD, and TED presents for a mental health evaluation after an episode of agitation on 10/13. Functional decline with altered mental status - Likely due to progressive dementia, no acute precipitant identified via clinical history or workup, family does not feel safe taking care of him - Continue psychotropic medications- Zoloft 25 mg daily, Seroquel 100 mg daily - Continue memantine 10 mg BID, home regimen is 28 mg XR daily - Currently no safety risk, pt not agitated and responds well to reorientation/redirection, remains hemodynamically stable - Haldol 5 mg IM q8h PRN for agitation, has not been used since being admitted. - PT/OT recommending 24 hr care, case management attempting to find placement -Due to 302 warrant issued, patient must have a one-to-one for this reason. Discussed with psych liaison. -Waiting to hear back about placement from [place] [facility] per case management expect patient to stay over the weekend. HERO - Creatinine on admission 1.82 (baseline ~1.3), likely due to reduced PO intake - 1.58 on 10/19, no longer trending BMP Hypothyroidism - TSH on admission elevated to 5.4, fT4 borderline-low at 0.6 - Continue home levothyroxine at 75 mcg daily, consider increasing dose on discharge - Repeat TSH in 4 weeks as outpatient COPD -Respiratory status stable at this time on RA -Continue fluticasone, Anoro GERD -Continue pantoprazole for acid suppression Diet: regular diet Code status: full code DVT ppx: SCDs Dispo: medical, awaiting SNF placement for PT and care (2) Dementia: (3) Hypothyroidism: (4) GERD (gastroesophageal reflux disease): (5) Fatigue: (6) Elevated serum creatinine: (7) Anxiety: (8) COPD (chronic obstructive pulmonary disease): Admission and Anticipated Discharge Date Admission Date: October 15, 2021 Supervising Physician Co-Signing Physician Notes I personally examined the patient and verified all daniels points of history and exam, discussed case, and agree with decision making with Dr Wade no meaningful HPI or ROS. vitals noted nad heent nc at mmm breathing unlabored no accessory muscles good effort skin no rashes no pallor or icterus 1. Functional decline with altered mental status secondary to progressive dementia. Continue Zoloft 25mg, Seroquel 100mg daily. Continue memantine 10mg BID. no noted concerning agitation/aggression 2. left shoulder and elbow injury. x-rays without acute or subacute fracture. 3. HERO. Resolved. 4. COPD. Continue home fluticasone and Anoro. 5. Hypothyroid. Continue home levothyroxine 75mcg. Will need repeat TSH in ~3 weeks. Dispo: pending placement in memory unit. Appreciate case management's efforts in this. Subjective Patient seen at bedside this morning. No acute events reported overnight. Patient continues to be pleasant, however, is somewhat agitated that he is in [facility] and wants [place] go back [place] to [place]". He reports that he is not in any pain. Keeps saying that he does not understand why he is here he is never done anything wrong. No other meaningful HPI at this time. Review of Systems Review of Systems: Unobtainable due to cognitive status Physical Exam Constitutional: well developed, well nourished and cooperative; no acute distress Eyes: + anicteric sclerae Neck: normal visual inspection Respiratory: normal respiratory effort, lungs clear to auscultation Cardiovascular: Rate/Rhythm: regular rate and regular rhythm Heart Sounds: + murmur Gastrointestinal (Abdomen): normal bowel sounds, soft, nontender, no hepatosplenomegaly Musculoskeletal: Head/Neck/Chest: normocephalic and head atraumatic Skin: no rashes, warm and dry Psychiatric: Affect: euthymic affect Results & Data Results & Data ([facility]) Vital Signs (Past 12 Hours) Vital Signs Temp Pulse Resp BP Pulse Ox O2 Del Method 10/30/21 07:25 36.6 C 79 16 132/76 95 Room Air
--- NOTE | 2021-10-30 18:32 | Billing Data ---
Date of Service October 30, 2021 Coding Level of Care Code 51590 Subseq Hosp Care Lvl 1
[2021-10-30] MEDS: QUEtiapine FUMARATE 25 MG TABLET PO SCH (20:20)
[2021-10-31] MEDS: LEVOTHYROXINE SODIUM 75 MCG TABLET PO SCH (06:45)
[2021-10-31 08:22] LABS: BUN Creatinine Ratio 16.6 (10-20); Calcium 9.3 mg/dl (8.5-10.1); Creatinine Clr Calc Pharmacy 31.2 ml/min; Est GFR (African American) 41.1 ml/min; Est GFR (Non-African American) 35.5 ml/min; Potassium 3.8 mmol/L (3.5-5.1)
[2021-10-31] MEDS: SERTRALINE HCL 100 MG TABLET PO SCH (08:33)
[2021-10-31] MEDS: FLUTICASONE FUROATE 100MCG 14 PUFFS/INHALER INH SCH (08:33)
[2021-10-31] MEDS: MEMANTINE HCL 10 MG TAB PO SCH ×2 (08:33→20:31)
[2021-10-31] MEDS: PANTOprazole 40 MG TAB PO SCH (08:33)
[2021-10-31] MEDS: UMECLIDINIUM/VILANTEROL 62.5/25MCG 7 PUFFS/INHALER INH SCH (08:34)
[2021-10-31] MEDS: RIVASTIGMINE 4.5 MG TD SCH (08:37)
--- NOTE | 2021-10-31 14:43 | Hospitalist Progress Note ---
Date of Service October 31, 2021 Assessment & Plan (1) Agitation: Plan: 86yo male with a history of dementia, COPD, hypothyroidism, GERD, and TED presents for a mental health evaluation after an episode of agitation on 10/13. Functional decline with altered mental status - Likely due to progressive dementia, no acute precipitant identified via clinical history or workup, family does not feel safe taking care of him - Continue psychotropic medications- Zoloft 25 mg daily, Seroquel 100 mg daily - Continue memantine 10 mg BID, home regimen is 28 mg XR daily - Currently no safety risk, pt not agitated and responds well to reorientation/redirection, remains hemodynamically stable - Brought in on 302 warrant. consider d/c 1:1 in am. - Haldol 5 mg IM q8h PRN for agitation, has not been used since being admitted. - PT/OT recommending 24 hr care, case management attempting to find placement -Waiting to hear back about placement from [place] [facility] per case management -Needs COVID booster before going to [facility] otherwise will have to be placed in isolation initially HERO -Recheck of creatinine today is 1.69, within normal limits for his baseline. Hypothyroidism - TSH on admission elevated to 5.4, fT4 borderline-low at 0.6 - Continue home levothyroxine at 75 mcg daily, consider increasing dose on discharge - Repeat TSH in 4 weeks as outpatient COPD -Respiratory status stable at this time on RA -Continue fluticasone, Anoro GERD -Continue pantoprazole for acid suppression Diet: regular diet Code status: full code DVT ppx: SCDs Dispo: medical, awaiting SNF placement for PT and care, will need COVID booster prior to leaving (2) Dementia: (3) Hypothyroidism: (4) GERD (gastroesophageal reflux disease): (5) Fatigue: (6) Elevated serum creatinine: (7) Anxiety: (8) COPD (chronic obstructive pulmonary disease): Admission and Anticipated Discharge Date Admission Date: October 15, 2021 Supervising Physician Co-Signing Physician Notes Resident Physician Supervision Note: I independently interviewed and examined the patient and verified the daniels history and physical, reviewed labs and image studies and agree with resident Dr. Wade findings and care plan. Subjective Patient seen at bedside this morning. No acute events reported overnight. Patient continues to be pleasant with intermittent episodes of agitation because he cannot understand why he is in the hospital but he is easily distracted and will discuss any topic [place] as the animals he has at home. Has not required medication for agitation. No new or meaningful HPI at this time. Review of Systems Review of Systems: Unobtainable due to cognitive status Physical Exam Constitutional: well developed, well nourished and cooperative; no acute distress Eyes: + anicteric sclerae Neck: normal visual inspection Respiratory: normal respiratory effort, lungs clear to auscultation Cardiovascular: Rate/Rhythm: regular rate and regular rhythm Heart Sounds: + murmur Gastrointestinal (Abdomen): normal bowel sounds, soft, nontender, no hep atosplenomegaly Musculoskeletal: Head/Neck/Chest: normocephalic and head atraumatic Skin: no rashes, warm and dry Psychiatric: Affect: euthymic affect Results & Data Results & Data ([facility]) Vital Signs (Past 12 Hours) Vital Signs Temp Pulse Resp BP Pulse Ox O2 Del Method 10/31/21 07:25 36.8 C 70 15 137/69 100 Room Air
[2021-10-31] MEDS: QUEtiapine FUMARATE 25 MG TABLET PO SCH (20:31)
[2021-11-01] MEDS: LEVOTHYROXINE SODIUM 75 MCG TABLET PO SCH (07:39)
[2021-11-01] MEDS: MEMANTINE HCL 10 MG TAB PO SCH ×2 (07:57→19:40)
[2021-11-01] MEDS: SERTRALINE HCL 100 MG TABLET PO SCH (07:57)
[2021-11-01] MEDS: UMECLIDINIUM/VILANTEROL 62.5/25MCG 7 PUFFS/INHALER INH SCH (07:57)
[2021-11-01] MEDS: FLUTICASONE FUROATE 100MCG 14 PUFFS/INHALER INH SCH (07:57)
[2021-11-01] MEDS: PANTOprazole 40 MG TAB PO SCH (07:57)
[2021-11-01] MEDS: RIVASTIGMINE 4.5 MG TD SCH (07:59)
--- NOTE | 2021-11-01 10:14 | Hospitalist Progress Note ---
Date of Service November 01, 2021 Assessment & Plan (1) Agitation: Plan: 86yo male with a history of dementia, COPD, hypothyroidism, GERD, and TED presents for a mental health evaluation after an episode of agitation on 10/13. Functional decline with altered mental status - Likely due to progressive dementia, no acute precipitant identified via clinical history or workup, family does not feel safe taking care of him - Continue psychotropic medications- Zoloft 25 mg daily, Seroquel 100 mg daily - Continue memantine 10 mg BID, home regimen is 28 mg XR daily - Currently no safety risk, pt not agitated and responds well to reorientation/redirection, remains hemodynamically stable - Brought in on 302 warrant. However patient does not meet 302 criteria as below - Haldol 5 mg IM q8h PRN for agitation, has not been used since being admitted. - PT/OT recommending 24 hr care, case management attempting to find placement -Waiting to hear back about placement from [facility] per case management -Needs COVID booster before going to dementia camacho otherwise will have to be placed in isolation initially -Psych consult today for evaluation of decision-making capacity: " Patient does not have decision-making capacity to leave against medical advice with no safe place to discharge currently" -Additionally per psych, patient does not meet 302 criteria given that his agitation is due to dementia and not a psychiatric cause. HERO, resolved -BMP every 48 hours -Last creatinine was 1.69 on 10/31 Subclinical Hypothyroidism - TSH on admission elevated to 5.4, fT4 borderline-low at 0.6 - Continue home levothyroxine at 75 mcg daily, consider increasing dose on discharge - Repeat TSH in 4 weeks as outpatient Chronic medical conditions: COPD -Respiratory status stable at this time on RA -Continue fluticasone, Anoro GERD -Continue pantoprazole for acid suppression Diet: regular diet Code status: full code DVT ppx: SCDs Dispo: medical, awaiting SNF placement for PT and care, will need COVID booster prior to leaving (2) Dementia: (3) Hypothyroidism: (4) GERD (gastroesophageal reflux disease): (5) Fatigue: (6) Elevated serum creatinine: (7) Anxiety: (8) COPD (chronic obstructive pulmonary disease): Admission and Anticipated Discharge Date Admission Date: October 15, 2021 Supervising Physician Co-Signing Physician Notes Resident Physician Supervision Note: I independently interviewed and examined the patient and verified the daniels history and physical, reviewed labs and image studies and agree with resident Dr. Wade findings and care plan. Subjective Patient seen at bedside this morning. No acute vents reported overnight. Patient was sleeping on my arrival. When awoken states that he is doing well just not sure why he is here. Denies any pain anywhere or shortness of breath. No other complaints at this time. Otherwise no new or meaningful HPI at this time. Review of Systems Review of Systems: Unobtainable due to cognitive status Physical Exam Constitutional: well developed, well nourished and cooperative; no acute distress Eyes: + anicteric sclerae Neck: normal visual inspection Respiratory: normal respiratory effort, lungs clear to auscultation Cardiovascular: Rate/Rhythm: regular rate and regular rhythm Heart Sounds: + murmur Gastrointestinal (Abdomen): normal bowel sounds, soft, nontender, no hepatosplenomegaly Musculoskeletal: Head/Neck/Chest: normocephalic and head atraumatic Skin: no rashes, warm and dry Psychiatric: Affect: euthymic affect Results & Data Results & Data ([facility]) Vital Signs (Past 12 Hours) Vital Signs Temp Pulse Resp BP Pulse Ox O2 Del Method 11/01/21 08:00 37 C 68 18 124/64 97 Room Air
--- NOTE | 2021-11-01 12:27 | Psychiatric Consultation ---
Date of Consultation November 01, 2021 Impression / Recommendations Impression 86 yo man with dementia with behavioral disturbance with worsening agitation at home due to paranoia, cooperative on interview today but confused. He does not have decision making capacity to leave AMA as he cannot state a specific choice, cannot discuss risks/benefits of returning home versus alternative placement and is not oriented to current location/time/reasons for hospitalization consistent with significant dementia. Agree with plan for memory unit placement given his is unable to safely manage his progressive dementia at home any longer. (1) Dementia: Plan -He does not have decision making capacity to leave AMA given significant progressive dementia and no safe place to discharge to currently. -Agree with plans: looking for secure memory care placement -1-on-1 at discretion of medical team -Agree he doesn't meet 302 criteria as primary underlying condition leading to agitation is dementia which is not considered an applicable diagnosis for 302 Psych History Identifying Data 86 yo man with dementia admitted medically for increased agitation at home. Psychiatry consulted for decision making capacity regarding leaving AMA. Chief Complaint "How long do I have to be going back and forth to this place?". History of Present Illness Balaji is very pleasant on interview but is oriented only to self. States "I'm so confused I don't even know who I am" but is able to tell me about his , family and living in [place] and enjoying the deer and bears that came to his garden. Thinks [place], [place] where he says he used to live. Repeats multiple times that "I don't smoke, I don't drink, I don't curse and I don't use [facility]" in describing himself. Asks me "when can I get out of here, I think I know how I get here but I'm not sure". Cannot expand on this. Provided reassurance and he was appreciative of offer to have the hospital [employer] come by to see him. Allergies Allergy/AdvReac Type Severity Reaction Status Date / Time albuterol Allergy Unknown short of Verified 10/14/21 01:25 breath lactose Allergy Unknown Verified 10/14/21 01:25 Home Medications Medication Instructions Recorded Confirmed Type cholecalciferol (vitamin D3) 25 1,000 unit PO DAILY 01/07/18 10/14/21 History mcg (1,000 unit) tablet (Vitamin D3) esomeprazole magnesium 40 mg 40 mg PO DAILY 10/31/18 10/14/21 History capsule,delayed release memantine 28 mg capsule 28 mg PO DAILY #90 ea 11/17/20 10/14/21 Rx sprinkle,extended release 24hr levalbuterol HCl 1.25 mg/3 mL 1.25 mg (3 mL) inhalation QID PRN 03/14/21 10/14/21 Rx solution for nebulization Shortness Of Breath #180 mL levothyroxine 75 mcg tablet 75 mcg PO DAILY #30 tabs 06/14/21 10/14/21 Rx fluticasone fur. 100 mcg-umeclid 1 inh inhalation DAILY #60 ea 06/17/21 10/14/21 Rx 62.5 mcg-vilant 25 mcg inhalat.powder (Trelegy Ellipta) sertraline 100 mg tablet See Rx Instructions .Route 08/25/21 10/14/21 Rx .COMPLEX #30 tabs rivastigmine 4.6 mg/24 hour 4.6 mg transdermal DAILY #30 ea 09/20/21 10/14/21 Rx transdermal patch quetiapine 25 mg tablet 25 mg PO .COMPLEX 30 days #30 tabs 10/07/21 10/14/21 Rx Personal History Employment Status: Retired Marital Status: Number Of Children: 2-daughter locally and son in [place] Beliefs That Will Affect Care: None Patient History Medical History COPD (chronic obstructive pulmonary disease) Dementia Diverticulitis Kidney stone Surgical History H/O knee surgery History of kidney surgery Previous back surgery S/P foot surgery Family History Mother Stroke Brother Prostate cancer Denies family history of Ovarian cancer Myocardial infarction Breast cancer Colorectal cancer Social History Smoking Status: Never smoker Hx Alcohol Use: No Hx Substance Use: No Preferred Language: Upper Sorbian Communication Ability: Impaired Aws Consultant Required: No Beliefs That Will Affect Care: None Current Living Situation: Spouse current occupational status: retired Feels Safe at Home: Yes Dental Care, Regularly: No Seatbelt Use: always Sunscreen Use: No Assistive Devices: None Physical Exam Psychiatric: Orientation: alert, oriented to person and cooperative; + not oriented to place and + not oriented to time Apperance: appropriately dressed and appropriately groomed Eye Contact: good eye contact Motor Behavior: no abnormal motor movements Speech: normal rate/rhythm/volume of speech Affect: euthymic affect Mood: no depressed mood Thought Process: + circumstantial thought process and + looseness of associations Thought Content: reality based without delusions Suicidal Thoughts: denies suicidal thoughts Homicidal Thoughts: denies homicidal thoughts Hallucinations: no auditory hallucinations and no visual hallucinations Cognition: remote memory grossly intact, attention grossly intact and language grossly intact; + recent memory not intact Insight: + severely impaired insight Judgement: + severely impaired judgement Vital Signs (Past 24 Hours): Last Vital Signs Temp 37 C 11/01/21 08:00 Pulse 68 11/01/21 08:00 Resp 18 11/01/21 08:00 BP 124/64 11/01/21 08:00 Pulse Ox 97 11/01/21 08:00 O2 Del Method 11/01/21 08:00 Review of Systems All systems reviewed & are unremarkable except as noted in HPI & below Results & Data ([facility]) Medications Administered Fluticasone Furoate (Fluticasone Furoate 100mcg 14 Puffs/Inhaler) 1 puffs INH DAILY DAR Stop: 11/13/21 08:59 Last Admin: 11/01/21 07:57 Dose: 1 puffs Documented By: Admin: 10/31/21 08:33 Dose: 1 puffs Documented By: Admin: 10/30/21 08:10 Dose: 1 puffs Documented By: Admin: 10/29/21 11:41 Dose: 1 puffs Documented By: Admin: 10/28/21 07:55 Dose: 1 puffs Documented By: Admin: 10/27/21 08:57 Dose: 1 puffs Documented By: Admin: 10/26/21 08:17 Dose: 1 puffs Documented By: Admin: 10/25/21 08:58 Dose: 1 puffs Documented By: Admin: 10/24/21 09:41 Dose: 1 puffs Documented By: MARIA TERESA Admin: 10/23/21 10:32 Dose: 1 puffs Documented By: MARIA TERESA Admin: 10/22/21 08:20 Dose: 1 puffs Documented By: Admin: 10/21/21 08:05 Dose: 1 puffs Documented By: Admin: 10/20/21 08:48 Dose: 1 puffs Documented By: Admin: 10/19/21 07:37 Dose: 1 puffs Documented By: Admin: 10/18/21 08:48 Dose: 1 puffs Documented By: Admin: 10/17/21 09:25 Dose: 1 puffs Documented By: Admin: 10/16/21 10:14 Dose: 1 puffs Documented By: Admin: 10/15/21 10:44 Dose: 1 puffs Documented By: Admin: 10/14/21 08:54 Dose: 1 puffs Documented By: FATIMAH Levothyroxine Sodium (Levothyroxine Sodium 75 Mcg Tablet) 75 mcg PO DAILYBB DAR Stop: 11/14/21 06:29 Last Admin: 11/01/21 07:39 Dose: 75 mcg Documented By: Admin: 10/31/21 06:45 Dose: 75 mcg Documented By: Admin: 10/30/21 07:23 Dose: 75 mcg Documented By: Admin: 10/29/21 06:23 Dose: 75 mcg Documented By: Admin: 10/28/21 06:44 Dose: 75 mcg Documented By: Admin: 10/27/21 06:29 Dose: 75 mcg Documented By: Admin: 10/26/21 06:23 Dose: 75 mcg Documented By: Admin: 10/25/21 06:49 Dose: 75 mcg Documented By: JEAN CARLOS Admin: 10/24/21 06:35 Dose: 75 mcg Documented By: Admin: 10/23/21 06:39 Dose: 75 mcg Documented By: Admin: 10/22/21 05:17 Dose: 75 mcg Documented By: Admin: 10/21/21 06:04 Dose: 75 mcg Documented By: Admin: 10/20/21 07:31 Dose: 75 mcg Documented By: Admin: 10/19/21 07:35 Dose: 75 mcg Documented By: Admin: 10/18/21 08:09 Dose: 75 mcg Documented By: Admin: 10/17/21 06:18 Dose: Not Given Documented By: Admin: 10/16/21 06:53 Dose: Not Given Documented By: Admin: 10/15/21 08:36 Dose: Not Given Documented By: PEREZ Memantine (Memantine Hcl 10 Mg Tab) 10 mg PO BID [facility]; Protocol Stop: 11/16/21 20:59 Last Admin: 11/01/21 07:57 Dose: 10 mg Documented By: Admin: 10/31/21 20:31 Dose: 10 mg Documented By: Admin: 10/31/21 08:33 Dose: 10 mg Documented By: Admin: 10/30/21 20:20 Dose: 10 mg Documented By: Admin: 10/30/21 08:08 Dose: 10 mg Documented By: Admin: 10/29/21 21:23 Dose: 10 mg Documented By: Admin: 10/29/21 11:42 Dose: 10 mg Documented By: Admin: 10/28/21 20:35 Dose: 10 mg Documented By: Admin: 10/28/21 07:55 Dose: 10 mg Documented By: Admin: 10/27/21 20:03 Dose: 10 mg Documented By: Admin: 10/27/21 08:57 Dose: 10 mg Documented By: Admin: 10/26/21 22:20 Dose: 10 mg Documented By: Admin: 10/26/21 08:17 Dose: 10 mg Documented By: Admin: 10/25/21 20:13 Dose: 10 mg Documented By: Admin: 10/25/21 08:59 Dose: 10 mg Documented By: Admin: 10/24/21 20:12 Dose: 10 mg Documented By: JEAN CARLOS Admin: 10/24/21 09:42 Dose: 10 mg Documented By: MARIA TERESA Admin: 10/23/21 20:36 Dose: 10 mg Documented By: Admin: 10/23/21 10:32 Dose: 10 mg Documented By: MARIA TERESA Admin: 10/22/21 20:43 Dose: 10 mg Documented By: Admin: 10/22/21 08:19 Dose: 10 mg Documented By: Admin: 10/21/21 19:50 Dose: 10 mg Documented By: Admin: 10/21/21 08:01 Dose: 10 mg Documented By: Admin: 10/20/21 19:54 Dose: 10 mg Documented By: Admin: 10/20/21 08:46 Dose: 10 mg Documented By: Admin: 10/19/21 19:26 Dose: 10 mg Documented By: Admin: 10/19/21 07:34 Dose: 10 mg Documented By: Admin: 10/18/21 19:42 Dose: 10 mg Documented By: Admin: 10/18/21 08:47 Dose: 10 mg Documented By: Admin: 10/17/21 20:05 Dose: 10 mg Documented By: SCOOTER Miscellaneous (Remove Patch) 1 each N/A DAILY@0859 [facility] Stop: 11/26/21 08:58 Last Admin: 11/01/21 07:59 Dose: 1 each Documented By: Admin: 10/31/21 08:36 Dose: 1 each Documented By: Admin: 10/30/21 08:10 Dose: 1 each Documented By: Admin: 10/29/21 11:42 Dose: 1 each Documented By: Admin: 10/28/21 07:55 Dose: 1 each Documented By: Admin: 10/27/21 08:57 Dose: 1 each Documented By: LORENA Pantoprazole Sodium (Pantoprazole 40 Mg Tab) 40 mg PO DAILY [facility]; Protocol Stop: 11/13/21 08:59 Last Admin: 11/01/21 07:57 Dose: 40 mg Documented By: Admin: 10/31/21 08:33 Dose: 40 mg Documented By: Admin: 10/30/21 08:09 Dose: 40 mg Documented By: Admin: 10/29/21 11:42 Dose: 40 mg Documented By: Admin: 10/28/21 07:55 Dose: 40 mg Documented By: Admin: 10/27/21 08:57 Dose: 40 mg Documented By: Admin: 10/26/21 08:17 Dose: 40 mg Documented By: Admin: 10/25/21 08:59 Dose: 40 mg Documented By: Admin: 10/24/21 09:42 Dose: 40 mg Documented By: MARIA TERESA Admin: 10/23/21 10:33 Dose: 40 mg Documented By: MARIA TERESA Admin: 10/22/21 08:19 Dose: 40 mg Documented By: Admin: 10/21/21 08:01 Dose: 40 mg Documented By: Admin: 10/20/21 08:46 Dose: 40 mg Documented By: Admin: 10/19/21 07:35 Dose: 40 mg Documented By: Admin: 10/18/21 08:48 Dose: 40 mg Documented By: Admin: 10/17/21 09:26 Dose: 40 mg Documented By: Admin: 10/16/21 10:14 Dose: 40 mg Documented By: Admin: 10/15/21 10:43 Dose: 40 mg Documented By: Admin: 10/14/21 08:54 Dose: 40 mg Documented By: MHLarry Polyethylene Glycol (Polyethylene (Miralax) 17 Gm Pack) 34 gm PO DAILY PRN PRN Reason: Constipation Stop: 11/24/21 16:27 Last Admin: 10/25/21 16:37 Dose: 34 gm Documented By: CLEMENT Quetiapine Fumarate (Quetiapine Fumarate 25 Mg Tablet) 25 mg PO HS DAR Stop: 11/13/21 20:59 Last Admin: 10/31/21 20:31 Dose: 25 mg Documented By: Admin: 10/30/21 20:20 Dose: 25 mg Documented By: Admin: 10/29/21 21:23 Dose: 25 mg Documented By: Admin: 10/28/21 20:35 Dose: 25 mg Documented By: Admin: 10/27/21 20:02 Dose: 25 mg Documented By: Admin: 10/26/21 22:20 Dose: 25 mg Documented By: Admin: 10/25/21 20:14 Dose: 25 mg Documented By: Admin: 10/24/21 20:12 Dose: 25 mg Documented By: Admin: 10/23/21 20:36 Dose: 25 mg Documented By: Admin: 10/22/21 20:44 Dose: 25 mg Documented By: Admin: 10/21/21 19:50 Dose: 25 mg Documented By: Admin: 10/20/21 19:54 Dose: 25 mg Documented By: Admin: 10/19/21 19:26 Dose: 25 mg Documented By: Admin: 10/18/21 19:42 Dose: 25 mg Documented By: Admin: 10/17/21 20:05 Dose: 25 mg Documented By: Admin: 10/16/21 21:07 Dose: 25 mg Documented By: Admin: 10/15/21 21:32 Dose: 25 mg Documented By: Admin: 10/14/21 19:50 Dose: 25 mg Documented By: FELIZ Rivastigmine (Rivastigmine 4.5 Mg Patch) 1 patch TD DAILY DAR Stop: 11/17/21 11:29 Last Admin: 11/01/21 07:59 Dose: 1 patch Documented By: Admin: 10/31/21 08:37 Dose: 1 patch Documented By: Admin: 10/30/21 08:10 Dose: 1 patch Documented By: Admin: 10/29/21 11:43 Dose: 1 patch Documented By: Admin: 10/28/21 07:56 Dose: 1 patch Documented By: Admin: 10/27/21 08:58 Dose: 1 patch Documented By: Admin: 10/26/21 08:19 Dose: 1 patch Documented By: Admin: 10/25/21 09:00 Dose: 1 patch Documented By: Admin: 10/24/21 09:41 Dose: 1 patch Documented By: MARIA TERESA Admin: 10/23/21 10:36 Dose: 1 patch Documented By: MARIA TERESA Admin: 10/22/21 08:24 Dose: 1 patch Documented By: Admin: 10/21/21 08:02 Dose: 1 patch Documented By: Admin: 10/20/21 08:47 Dose: 1 patch Documented By: Admin: 10/19/21 07:35 Dose: 1 patch Documented By: Admin: 10/18/21 11:34 Dose: 1 patch Documented By: SHAHIDA Sertraline HCl (Sertraline Hcl 100 Mg Tablet) 100 mg PO DAILY DAR Stop: 11/13/21 08:59 Last Admin: 11/01/21 07:57 Dose: 100 mg Documented By: Admin: 10/31/21 08:33 Dose: 100 mg Documented By: Admin: 10/30/21 08:09 Dose: 100 mg Documented By: Admin: 10/29/21 11:42 Dose: 100 mg Documented By: Admin: 10/28/21 07:55 Dose: 100 mg Documented By: Admin: 10/27/21 08:57 Dose: 100 mg Documented By: Admin: 10/26/21 08:17 Dose: 100 mg Documented By: Admin: 10/25/21 08:58 Dose: 100 mg Documented By: Admin: 10/24/21 09:42 Dose: 100 mg Documented By: MARIA TERESA Admin: 10/23/21 10:33 Dose: 100 mg Documented By: MARIA TERESA Admin: 10/22/21 08:19 Dose: 100 mg Documented By: Admin: 10/21/21 08:01 Dose: 100 mg Documented By: Admin: 10/20/21 08:47 Dose: 100 mg Documented By: Admin: 10/19/21 07:56 Dose: 100 mg Documented By: Admin: 10/18/21 08:48 Dose: 100 mg Documented By: Admin: 10/17/21 09:26 Dose: 100 mg Documented By: Admin: 10/16/21 10:14 Dose: 100 mg Documented By: Admin: 10/15/21 10:44 Dose: 100 mg Documented By: Admin: 10/14/21 08:54 Dose: 100 mg Documented By: FATIMAH Umeclidinium/Vilanterol (Umeclidinium/Vilanterol 62.5/25mcg 7 Puffs/Inhaler) 1 puffs INH DAILY DAR Stop: 11/13/21 08:59 Last Admin: 11/01/21 07:57 Dose: 1 puffs Documented By: Admin: 10/31/21 08:34 Dose: 1 puffs Documented By: Admin: 10/30/21 09:43 Dose: 1 puffs Documented By: Admin: 10/29/21 11:44 Dose: 1 puffs Documented By: Admin: 10/28/21 07:56 Dose: 1 puffs Documented By: Admin: 10/27/21 08:56 Dose: 1 puffs Documented By: Admin: 10/26/21 08:17 Dose: 1 puffs Documented By: Admin: 10/25/21 09:00 Dose: 1 puffs Documented By: Admin: 10/24/21 09:41 Dose: 1 puffs Documented By: MARIA TERESA Admin: 10/23/21 10:34 Dose: 1 puffs Documented By: MARIA TERESA Admin: 10/22/21 08:20 Dose: 1 puffs Documented By: Admin: 10/21/21 10:02 Dose: 1 puffs Documented By: Admin: 10/20/21 08:48 Dose: 1 puffs Documented By: Admin: 10/19/21 07:36 Dose: 1 puffs Documented By: Admin: 10/18/21 08:48 Dose: 1 puffs Documented By: Admin: 10/17/21 09:25 Dose: 1 puffs Documented By: Admin: 10/16/21 10:15 Dose: 1 puffs Documented By: Admin: 10/15/21 10:44 Dose: 1 puffs Documented By: Admin: 10/14/21 08:53 Dose: 1 puffs Documented By: FATIMAH Coding Level of Care Code 56848 Inpt Consult Level 3 Diagnoses Dementia F03.90
[2021-11-01] MEDS: QUEtiapine FUMARATE 25 MG TABLET PO SCH (19:40)
[2021-11-02] MEDS: PANTOprazole 40 MG TAB PO SCH (08:11)
[2021-11-02] MEDS: LEVOTHYROXINE SODIUM 75 MCG TABLET PO SCH (08:11)
[2021-11-02] MEDS: SERTRALINE HCL 100 MG TABLET PO SCH (08:12)
[2021-11-02] MEDS: FLUTICASONE FUROATE 100MCG 14 PUFFS/INHALER INH SCH (08:12)
[2021-11-02] MEDS: MEMANTINE HCL 10 MG TAB PO SCH ×2 (08:12→20:02)
[2021-11-02] MEDS: RIVASTIGMINE 4.5 MG TD SCH (08:13)
[2021-11-02] MEDS: UMECLIDINIUM/VILANTEROL 62.5/25MCG 7 PUFFS/INHALER INH SCH (08:13)
[2021-11-02 08:40] VITALS: PULSE 71; O2SAT 100
[2021-11-02 09:25] LABS: BUN Creatinine Ratio 14.7 (10-20); Calcium 9.3 mg/dl (8.5-10.1); Creatinine Clr Calc Pharmacy 33.8 ml/min; Est GFR (African American) 45.3 ml/min; Est GFR (Non-African American) 39.1 ml/min; Potassium 4.3 mmol/L (3.5-5.1)
--- NOTE | 2021-11-02 17:06 | Hospitalist Progress Note ---
Date of Service November 02, 2021 Assessment & Plan (1) Agitation: Plan: 86yo male with a history of dementia, COPD, hypothyroidism, GERD, and TED presents for a mental health evaluation after an episode of agitation on 10/13. Functional decline with altered mental status - Likely due to progressive dementia, no acute precipitant identified via clinical history or workup, family does not feel safe taking care of him - Continue psychotropic medications- Zoloft 25 mg daily, Seroquel 100 mg daily - Continue memantine 10 mg BID, home regimen is 28 mg XR daily - Currently no safety risk, pt not agitated and responds well to reorientation/redirection, remains hemodynamically stable - Brought in on 302 warrant. However patient does not meet 302 criteria as below - Haldol 5 mg IM q8h PRN for agitation, has not been used since being admitted. - PT/OT recommending 24 hr care, case management attempting to find placement -Psych consult today for evaluation of decision-making capacity: " Patient does not have decision-making capacity to leave against medical advice with no safe place to discharge currently" -Additionally per psych, patient does not meet 302 criteria given that his agitation is due to dementia and not a psychiatric cause. -Patient has been accepted at [facility] memory unit and can go there tomorrow. Patient requires COVID booster which was ordered today. HERO, resolved -BMP every 48 hours -Last creatinine was 1.69 on 10/31 Hypothyroidism - TSH on admission elevated to 5.4, fT4 borderline-low at 0.6 - Continue home levothyroxine at 75 mcg daily, consider increasing dose on discharge - Repeat TSH in 4 weeks as outpatient Chronic medical conditions: COPD -Respiratory status stable at this time on RA -Continue fluticasone, Anoro GERD -Continue pantoprazole for acid suppression Diet: regular diet Code status: full code DVT ppx: SCDs Dispo: medical, awaiting SNF placement for PT and care, will need COVID booster prior to leaving (2) Dementia: (3) Hypothyroidism: (4) GERD (gastroesophageal reflux disease): (5) Fatigue: (6) Elevated serum creatinine: (7) Anxiety: (8) COPD (chronic obstructive pulmonary disease): Admission and Anticipated Discharge Date Admission Date: October 15, 2021 Supervising Physician Co-Signing Physician Notes Resident Physician Supervision Note: I independently interviewed and examined the patient and verified the daniels history and physical, reviewed labs and image studies and agree with resident Dr. Wade findings and care plan. Subjective Patient seen at bedside this morning. No acute events reported overnight. Patient continues to be pleasant and easily distractible in regards to his dementia. Reports no pain at this time. Does continue to question why he is here but is excepting of his disposition. Patient otherwise has no other complaints at this time. Review of Systems Review of Systems: Unobtainable due to cognitive status Physical Exam Constitutional: well developed, well nourished and cooperative; no acute distress Eyes: + anicteric sclerae Neck: normal visual inspection Respiratory: normal respiratory effort, lungs clear to auscultation Cardiovascular: Rate/Rhythm: regular rate and regular rhythm Heart Sounds: + murmur Gastrointestinal (Abdomen): normal bowel sounds, soft, nontender, no hepatosplenomegaly Musculoskeletal: Head/Neck/Chest: normocephalic and head atraumatic Skin: no rashes, warm and dry Psychiatric: Affect: euthymic affect Results & Data Results & Data ([facility]) Vital Signs (Past 12 Hours) Vital Signs Temp Pulse Resp BP Pulse Ox O2 Del Method 11/02/21 08:36 36.5 C 71 16 126/72 100 Room Air
[2021-11-02 19:52] VITALS: TEMP 97.9
[2021-11-02] MEDS: QUEtiapine FUMARATE 25 MG TABLET PO SCH (20:02)
[2021-11-03] MEDS: MEMANTINE HCL 10 MG TAB PO SCH (08:12)
[2021-11-03] MEDS: PANTOprazole 40 MG TAB PO SCH (08:12)
[2021-11-03] MEDS: LEVOTHYROXINE SODIUM 75 MCG TABLET PO SCH (08:12)
[2021-11-03] MEDS: SERTRALINE HCL 100 MG TABLET PO SCH (08:13)
[2021-11-03] MEDS: RIVASTIGMINE 4.5 MG TD SCH (08:14)
[2021-11-03] MEDS: FLUTICASONE FUROATE 100MCG 14 PUFFS/INHALER INH SCH (08:14)
[2021-11-03] MEDS: UMECLIDINIUM/VILANTEROL 62.5/25MCG 7 PUFFS/INHALER INH SCH (08:15)
--- NOTE | 2021-11-03 08:57 | Discharge Summary ---
Date of Service November 03, 2021 Admission HPI Per Admitting Provider 86yo male with a history of dementia, COPD, hypothyroidism, GERD, and TED presents for a mental health evaluation after an episode of agitation on 10/13. History is primarily obtained via review of patient's arrival ED note, as patient is a poor historian and family is not present at this time. Patient has a history of dementia and has reportedly become more and more agitated recently, yelling and paranoid, thinking his was stealing from her. Patient's neighbors called police when patient was found outside yelling. Police brought patient to the ED. Per discussion between patient's and ED provider, howard lora's notes she does not feel safe at him. Patient is aware that he has dementia but reports he does not remember any events from earlier in the day, is unsure why he was brought here, and did not realize he was in the hospital. Patient is a poor historian but denies recent fever, chills, headache, vision changes, CP, palpitations, SOB, edema, abdominal pain, nausea, vomiting, dysuria, hematochezia, melena, lightheadedness, dizziness, numbness, tingling, weakness, or other symptoms. Denies recent illness and recent travel. Upon arrival, vitals were notable for elevated BP (150s/80s) and tachycardia (106). No tachypnea, patient afebrile, spO2 adequate on room air. Initial labs were notable for mild anemia (11.4), elevated creatinine (1.82, baseline ~1.3), elevated TSH (5.4) with borderline-low fT4 (0.6). UA likely contaminated but notable for trace protein, ketones, and leuk esterase. UDS negative, urine APAP and salicylates undetectable. In the ED, patient received quetiapine 25mg (x1). CT head showed no acute intracranial pathology and mild nonspecific white matter changes. EKG: NSR with QTc prolonged to 484. Principal Diagnosis Dementia with agitation Discharge Exam Constitutional well developed, well nourished and cooperative; no acute distress Eyes + anicteric sclerae Neck normal visual inspection Respiratory normal respiratory effort, lungs clear to auscultation Cardiovascular Rate/Rhythm: regular rate and regular rhythm Heart Sounds: + murmur Gastrointestinal (Abdomen) normal bowel sounds, soft, nontender, no hepatosplenomegaly Musculoskeletal Head/Neck/Chest: normocephalic and head atraumatic Skin no rashes, warm and dry Psychiatric Affect: euthymic affect Discharge Data Allergies Allergy/AdvReac Type Severity Reaction Status Date / Time albuterol Allergy Unknown short of Verified 10/14/21 01:25 breath lactose Allergy Unknown Verified 10/14/21 01:25 Vaccinations Received COVID booster in house Consultations 10/14/21 02:53 ED Decision to Admit Stat 11/01/21 10:29 Consult Psychiatry Routine Ordered Studies 10/14/21 01:21 CT head/brain wo con Urgent Hospital Course (1) Agitation: 86yo male with a history of dementia, COPD, hypothyroidism, GERD, and TED presents for a mental health evaluation after an episode of agitation on 10/13. Functional decline with altered mental status - Likely due to progressive dementia, no acute precipitant identified via clinical history or workup, family does not feel safe taking care of him - Continue psychotropic medications- Zoloft 25 mg daily, Seroquel 100 mg daily - Continue memantine 10 mg BID, home regimen is 28 mg XR daily - Currently no safety risk, pt not agitated and responds well to reorientation/redirection, remains hemodynamically stable - Brought in on 302 warrant. However patient does not meet 302 criteria as below - PT/OT recommending 24 hr care, case management attempting to find placement -Psych consult today for evaluation of decision-making capacity: " Patient does not have decision-making capacity to leave against medical advice with no safe place to discharge currently" -Additionally per psych, patient does not meet 302 criteria given that his agitation is due to dementia and not a psychiatric cause. -Patient has been accepted at [facility] memory unit [facility], resolved -Last creatinine was 1.56 on 11/02 which is baseline for him Hypothyroidism - TSH on admission elevated to 5.4, fT4 borderline-low at 0.6 - Continue home levothyroxine at 75 mcg daily, consider increasing dose on discharge - Repeat TSH in 4 weeks as outpatient Chronic medical conditions: COPD -Respiratory status stable at this time on RA -Continue home trelegy GERD -Continue pantoprazole for acid suppression Diet: regular diet Code status: full code DVT ppx: SCDs Dispo: Transfer to [facility] (2) Dementia: (3) Hypothyroidism: (4) GERD (gastroesophageal reflux disease): (5) Fatigue: (6) Elevated serum creatinine: (7) Anxiety: (8) COPD (chronic obstructive pulmonary disease): Total Time Total Time Spent Total Time Spent (In Minutes): 30 Discharge Plan Discharge Items Patient Disposition: Transfer [facility] Fac Reason For Visit: MENTAL HEALTH EVALUATION, DEMENTIA, AGITATION Discharge Diagnosis: Advanced dementia Activity: Per Instructions section Non-emergency contact: Primary Care Provider Call non-emergency contact if: you have any medication questions and your symptoms worsen Follow-up/Referrals: Elvia Titus MD [Primary Care Provider] - Diet: Regular Addtl Attending Provider Instructions: (1) Agitation: Plan: 86yo male with a history of dementia, COPD, hypothyroidism, GERD, and TED presents for a mental health evaluation after an episode of agitation on 10/13. Functional decline with altered mental status - Likely due to progressive dementia, no acute precipitant identified via clinical history or workup, family does not feel safe taking care of him - Continue psychotropic medications- Zoloft 25 mg daily, Seroquel 100 mg daily - Continue memantine 10 mg BID, home regimen is 28 mg XR daily - Currently no safety risk, pt not agitated and responds well to reorientation/redirection, remains hemodynamically stable - Brought in on 302 warrant. However patient does not meet 302 criteria as below - Haldol 5 mg IM q8h PRN for agitation, has not been used since being admitted - PT/OT recommending 24 hr care, case management attempting to find placement -Psych consult today for evaluation of decision-making capacity: " Patient does not have decision-making capacity to leave against medical advice with no safe place to discharge currently" -Additionally per psych, patient does not meet 302 criteria given that his agitation is due to dementia and not a psychiatric cause. -Patient has been accepted at [facility] memory unit [facility], resolved -Last creatinine was 1.56 on 11/02 which is baseline for him Hypothyroidism - TSH on admission elevated to 5.4, fT4 borderline-low at 0.6 - Continue home levothyroxine at 75 mcg daily, consider increasing dose on discharge - Repeat TSH in 4 weeks as outpatient Chronic medical conditions: COPD -Respiratory status stable at this time on RA -Continue home trelegy GERD -Continue pantoprazole for acid suppression Diet: regular diet Code status: full code DVT ppx: SCDs Dispo: Transfer to [facility] Pending Studies at Discharge: No Stand-Alone Forms: My [facility] Skilled Items Patient informed of condition?: Yes DNR: No Discharge Level of Care: Other Communicable Disease: No Discharge Prognosis: Stable Lines: None Urinary Catheter: No Medications and DC Order Prescriptions: Continued levalbuterol HCl 1.25 mg/3 mL solution for nebulization 1.25 mg Inhalation QID PRN (Reason: Shortness Of Breath) Qty: 180 5RF levothyroxine 75 mcg tablet 75 mcg PO DAILY Qty: 30 3RF sertraline 100 mg tablet See Rx Instructions .ROUTE .COMPLEX Qty: 30 5RF Dose Instruction: TAKE 1 TABLET BY MOUTH DAILY. Rx Instructions: TAKE 1 TABLET BY MOUTH DAILY. rivastigmine 4.6 mg/24 hour patch 24 hour 4.6 mg transdermal DAILY Qty: 30 2RF quetiapine 25 mg tablet 25 mg PO .COMPLEX 30 Days Qty: 30 2RF Rx Instructions: 25 mg orally evening; esomeprazole magnesium 40 mg capsule,delayed release(DR/EC) 40 mg PO DAILY memantine 28 mg capsule,sprinkle,ER 24hr 28 mg PO DAILY Qty: 90 3RF Trelegy Ellipta 100-62.5-25 mcg blister with device 1 inh INH DAILY Qty: 60 3RF cholecalciferol (vitamin D3) [Vitamin D3] 1,000 unit Tablet 1,000 unit PO DAILY Discharge Orders: Discharge Order (Routine); Ordered 11/03/21 Ordered By: Tree Wade Admission Data Admit Date/Time: 10/15/21 18:58 Attending Provider: Violeta Snyder Admit Provider: Hernandez Martinez Primary Care Provider: Elvia Titus Other Providers: Efraín Gomez ; [place] ; [facility], ; Petra Jon ; Ant Gamble [place] ; Willian Montano ; Mandy Galeas ; Felipa Thomas ; Karina Randle Other Interventions: Discharge Summary Assessment (RN) Last Done: 11/03/21 10:10 Supervising Physician Co-Signing Physician Notes Resident Physician Supervision Note: I independently interviewed and examined the patient and verified the daniels history and physical, reviewed labs and image studies and agree with resident Dr. Wade findings and care plan.
[2021-11-03] MEDS ORDERED: COVID19 Vaccine (Primary Series--Pfizer) 30mcg/0.3mL IM ONE (10:00)
[2021-11-03 10:13] VITALS: BP 137/69
== END 2021-11-03 11:43 | DRG 884 ==
LOC: ED 00:39 → 3N 00:39 → SUATTDRO 03:30 → 3N 05:54 → SUATTDRO 10-15 18:58 → 3N 10-18 08:06
DX: E03.9 Hypothyroidism, unspecified; F41.1 Generalized anxiety disorder; Z79.890 Hormone replacement therapy; D64.9 Anemia, unspecified; N17.9 Acute kidney failure, unspecified; Z88.8 Allergy status to other drugs, medicaments and biological substances; F03.91 Unspecified dementia, unspecified severity, with behavioral disturbance; K21.9 Gastro-esophageal reflux disease without esophagitis; J44.9 Chronic obstructive pulmonary disease, unspecified; R45.1 Restlessness and agitation

== ENCOUNTER 2021-12-10 10:58 | Observation (INO) ==
[2021-12-10] MEDS ORDERED: ONDANSETRON INJ 2 MG/ML 2 ML VIAL IV STA (11:07)
[2021-12-10] MEDS ORDERED: MoRPHine SULFATE 4 MG/ML 1 ML CARP\\VIAL IV PRN (11:07)
[2021-12-10] MEDS ORDERED: SODIUM CHLORIDE 0.9% 500 ML IV STA (11:07)
--- NOTE | 2021-12-10 11:18 | Emergency Department Note ---
Impression & Plan Abdominal pain, epigastric, Atrial fibrillation, new onset, Abdominal aortic aneurysm, Esophagitis, Pleural effusion ED Provider Note NAME: MANUEL TIERNEY AGE: 86 SEX: M : 1935 ARRIVES VIA: Ambulance INFORMANT: Patient, EMS ED PROVIDER(S): Igor Snell DO CHIEF COMPLAINT: Epigastric pain HPI: The patient is an 86-year-old male who presented to the emergency department for an evaluation of epigastric pain. The patient has had a long-term. When he complained of the epigastric pain today he had an EKG which showed an abnormality in his rhythm. He was felt to be in atrial fibrillation and was sent to the emergency department for further evaluation. The patient himself states he has no chest pain. He denies having any difficulty breathing. He denies having any back pain dysuria or frequency. He states he has no lower extremity swelling or pain. The patient states he has noticed this pain in his epigastric region for about a month. He states today it started this morning and has been constant since onset. The patient states he has no fever. He has had no recent trauma. The patient arrived via ambulance. ROS: See above HPI for pertinent positives & negatives. A total of 10 systems reviewed and were otherwise negative. PAST MEDICAL HISTORY: See Below PAST SURGICAL HISTORY: See Below FAMILY HISTORY: See Below SOCIAL HISTORY: See Below HOME MEDICATIONS: See Below ALLERGIES: See Below VITALS: See Below PHYSICAL EXAMINATION: GENERAL: Patient is awake alert in no acute distress patient is resting comfortably and showing no signs of anxiety EYES: The conjunctivae are clear. The pupils are round and reactive. EARS, NOSE, MOUTH AND THROAT: The nose is without any evidence of any deformity. NECK: The neck is nontender and supple. RESPIRATORY: Normal respiratory effort is noted there is no evidence of wheezing rhonchi or rales CARDIOVASCULAR: Tachycardic and irregular heart sounds were noted auscultation. There is no definite murmur. GASTROINTESTINAL: The abdomen is soft and mildly distended. There is epigastric and right upper quadrant tenderness to palpation which is moderate. MUSCULOSKELETAL/EXTREMITIES: There is no evidence of gross deformity full range of motion is noted in the hips and shoulders. SKIN: Skin is warm and dry. There is no significant pedal edema. NEUROLOGIC: Patient is awake alert and oriented x3 MEDICAL DECISION MAKING: The patient is an 86-year-old male who presented to the emergency department for an evaluation of epigastric pain. The patient had reproducible epigastric pain. Given his age and comorbidities further laboratory and radiographic studies were obtained. The patient was found to have signs of esophagitis on CT. I do feel this is likely the cause of his pain. The patient was also found to have signs of a AAA on CAT scan as well as a possible colon mass. The patient was treated with IV fluids and pain medication. He was feeling much better on subsequent reevaluation. I discussed the patient's condition with the on-call [facility] hospitalist. Given the patient's age and comorbidities he may not be a candidate for any intervention on some of the findings noted on CT however his atrial fibrillation is new and he may need at least rate control. Triage Nursing notes reviewed. Prior medical records reviewed Vital Signs: reviewed and remarkable for tachycardia. Differential diagnosis: Etiologies such as appendicitis, diverticulitis, obstruction, inflammatory bowel disease, renal colic, PUD, biliary pathology, pancreatitis, mesenteric ischemia, aortic pathology, infections, genitourinary, UTI, perforated viscus, as well as others were entertained. ER treatment provided: See below Diagnostics interpreted by me: ECG: EKG was obtained in the emergency department. My interpretation is atrial fibrillation at 99 bpm. No PVCs were noted. LVH was suggested by voltage criteria. Nonspecific ST segment abnormalities were appreciated. This was compared to a tracing from October 15, 2021. The atrial fibrillation is new hany red to the previous tracing. Cardiac Monitoring: An order was placed for continuous cardiac monitoring. The monitor shows a rate of 107 bpm with atrial fibrillation. Laboratory studies: As stated above and show below. Imaging studies: See below Consultation(s): I discussed this case with Dr. Landis [facility]. Past Med/Surg History Medical History (Updated 12/10/21 @ 14:03 by Igor Snell DO) COPD (chronic obstructive pulmonary disease) Dementia Diverticulitis Kidney stone Surgical History H/O knee surgery History of kidney surgery Previous back surgery S/P foot surgery Family History Mother Stroke Brother Prostate cancer Denies family history of Ovarian cancer Myocardial infarction Breast cancer Colorectal cancer Social History Smoking Status: Never smoker Hx Alcohol Use: No Hx Substance Use: No Preferred Language: Occitan Communication Ability: Impaired Physical Sciences Instructor Required: No Beliefs That Will Affect Care: None Current Living Situation: Spouse current occupational status: retired Feels Safe at Home: Yes Dental Care, Regularly: No Seatbelt Use: always Sunscreen Use: No Assistive Devices: None Allergies Allergies Allergy/AdvReac Type Severity Reaction Status Date / Time albuterol Allergy Unknown short of Verified 10/14/21 01:25 breath lactose Allergy Unknown Verified 10/14/21 01:25 Home Meds Home Medications Medication Instructions Recorded Confirmed cholecalciferol (vitamin D3) 25 1,000 unit PO DAILY 01/07/18 10/14/21 mcg (1,000 unit) tablet (Vitamin D3) esomeprazole magnesium 40 mg 40 mg PO DAILY 10/31/18 10/14/21 capsule,delayed release Previous Rx's Medication Instructions Recorded memantine 28 mg capsule 28 mg PO DAILY #90 ea 11/17/20 sprinkle,extended release 24hr levalbuterol HCl 1.25 mg/3 mL 1.25 mg (3 mL) inhalation QID PRN 03/14/21 solution for nebulization Shortness Of Breath #180 mL levothyroxine 75 mcg tablet 75 mcg PO DAILY #30 tabs 06/14/21 fluticasone fur. 100 mcg-umeclid 1 inh inhalation DAILY #60 ea 06/17/21 62.5 mcg-vilant 25 mcg inhalat.powder (Trelegy Ellipta) sertraline 100 mg tablet See Rx Instructions .Route 08/25/21 .COMPLEX #30 tabs rivastigmine 4.6 mg/24 hour 4.6 mg transdermal DAILY #30 ea 09/20/21 transdermal patch quetiapine 25 mg tablet 25 mg PO .COMPLEX 30 days #30 tabs 10/07/21 Results & Data (ED) Vital Signs Vital Signs - 24 hr 12/10/21 11:15 12/10/21 11:15 12/10/21 12:15 Temperature 36.7 C Temperature Source Oral Pulse Rate 111 H 109 H Pulse Rate from SpO2 Sensor 85 Pulse Rhythm Irregular Pulse Strength Normal Respiratory Rate 18 13 Respiratory Effort / Characteristics Non-Labored Respiratory Depth Normal Respiratory Pattern Regular Blood Pressure 139/88 Blood Pressure Mean 105 Pulse Oximetry 93 98 92 Oxygen Delivery Method Room Air Room Air Sepsis Recent Fever Within 48 Hours No Sepsis New/Unexplained Change in Mental Status No Sepsis Action Taken by Nursing No Action Required 12/10/21 12:15 12/10/21 12:30 12/10/21 12:30 Temperature Temperature Source Pulse Rate 107 H Pulse Rate from SpO2 Sensor 109 H Pulse Rhythm Pulse Strength Respiratory Rate 13 Respiratory Effort / Characteristics Respiratory Depth Respiratory Pattern Blood Pressure 126/80 121/79 Blood Pressure Mean 95 93 Pulse Oximetry 95 Oxygen Delivery Method Room Air Sepsis Recent Fever Within 48 Hours Sepsis New/Unexplained Change in Mental Status Sepsis Action Taken by [facility] Medications Current Medication List: was personally reviewed by me Laboratory Data Attestation: I reviewed the patient's lab results. Result diagrams: 12/10/21 11:31 12/10/21 11:31 Lab Results 12/10/21 12/10/21 12/10/21 Range/Units 11:26 11:31 11:31 WBC 10.79 (4.8-10.8) K/ul RBC 3.69 L (4.63-6.08) M/uL Hgb 11.4 L (14.0-18.0) g/dl Hct 35.2 L (40.1-51.0) % MCV 95.4 (80.0-100.0) fL MCH 30.9 (25.0-34.0) pg MCHC 32.4 (32.0-36.0) g/dL RDW Std Deviation 47.4 H (36.4-46.3) fL RDW Coeff of Bekah 13.5 (11.5-14.5) % Plt Count 213 (130-400) K/uL MPV 11.3 (9.4-12.4) fL Immature Gran % (Auto) 0.5 % Neut % (Auto) 76.3 % Lymph % (Auto) 7.9 % [place] % (Auto) 14.7 % Eos % (Auto) 0.1 % Baso % (Auto) 0.5 % Neut # (Auto) 8.24 H (1.4-6.5) K/uL Lymph # (Auto) 0.85 L (1.2-3.4) K/uL [place] # (Auto) 1.59 H (0.24-0.82) K/uL Eos # (Auto) 0.01 (0-0.50) K/uL Baso # (Auto) 0.05 (0-0.2) K/uL Immature Gran # (Auto) 0.05 H (0.00-0.02) K/uL PT 10.5 (9.0-12.0) Seconds INR 1.0 (0.9-1.1) APTT 26.3 (21.0-31.0) Seconds PTT Ratio 1.0 Sodium (136-145) mmol/L Potassium (3.5-5.1) mmol/L Chloride (98-107) mmol/L Carbon Dioxide (21-32) mmol/L Anion Gap (3-11) BUN (6-23) mg/dl Creatinine (0.6-1.4) mg/dl Est Cr Clr Drug Dosing ml/min Est GFR ( Amer) ml/min Est GFR (Non-Af Amer) ml/min BUN/Creatinine Ratio (10-20) Glucose (70-99(Fasting)) mg/dl Calcium (8.5-10.1) mg/dl Magnesium (1.7-2.4) mg/dl Total Bilirubin (0.2-1.0) mg/dl AST (13-39) U/L ALT (7-52) U/L Alkaline Phosphatase (34-104) U/L Troponin I High Sens (0-20) pg/ml Total Protein (6.0-8.3) gm/dl Albumin (3.4-5.0) gm/dl Globulin (2.5-4.0) gm/dl Albumin/Globulin Ratio (0.9-2) Lipase (11-82) U/L TSH (0.300-4.500) uIu/ml Free T4 (0.61-1.60) ng/dl Urine Color Urine Appearance (Clear) Urine pH (4.5-7.5) Ur Specific Cecil (1.000-1.030) Urine Protein (Negative) Urine Glucose (UA) (Negative) Urine Ketones (Negative) Urine Blood (Negative) Urine Nitrite (Negative) Urine Bilirubin (Negative) Urine Urobilinogen (Negative) Ur Leukocyte Esterase (Negative) SARS-CoV-2, RNA, NAAT NEGATIVE (NEGATIVE) 12/10/21 12/10/21 12/10/21 Range/Units 11:31 11:31 13:21 WBC (4.8-10.8) K/ul RBC (4.63-6.08) M/uL Hgb (14.0-18.0) g/dl Hct (40.1-51.0) % MCV (80.0-100.0) fL MCH (25.0-34.0) pg MCHC (32.0-36.0) g/dL RDW Std Deviation (36.4-46.3) fL RDW Coeff of Bekah (11.5-14.5) % Plt Count (130-400) K/uL MPV (9.4-12.4) fL Immature Gran % (Auto) % Neut % (Auto) % Lymph % (Auto) % [place] % (Auto) % Eos % (Auto) % Baso % (Auto) % Neut # (Auto) (1.4-6.5) K/uL Lymph # (Auto) (1.2-3.4) K/uL [place] # (Auto) (0.24-0.82) K/uL Eos # (Auto) (0-0.50) K/uL Baso # (Auto) (0-0.2) K/uL Immature Gran # (Auto) (0.00-0.02) K/uL PT (9.0-12.0) Seconds INR (0.9-1.1) APTT (21.0-31.0) Seconds PTT Ratio Sodium 135 L (136-145) mmol/L Potassium 4.0 (3.5-5.1) mmol/L Chloride 101 (98-107) mmol/L Carbon Dioxide 26 (21-32) mmol/L Anion Gap 8 (3-11) BUN 21 (6-23) mg/dl Creatinine 1.27 (0.6-1.4) mg/dl Est Cr Clr Drug Dosing 44.1 ml/min Est GFR ( Amer) 58.1 ml/min Est GFR (Non-Af Amer) 50.1 ml/min BUN/Creatinine Ratio 16.5 (10-20) Glucose 102 H (70-99(Fasting)) mg/dl Calcium 9.1 (8.5-10.1) mg/dl Magnesium 2.5 H (1.7-2.4) mg/dl Total Bilirubin 0.7 (0.2-1.0) mg/dl AST 21 (13-39) U/L ALT 10 (7-52) U/L Alkaline Phosphatase 72 (34-104) U/L Troponin I High Sens 5.6 (0-20) pg/ml Total Protein 6.6 (6.0-8.3) gm/dl Albumin 3.9 (3.4-5.0) gm/dl Globulin 2.7 (2.5-4.0) gm/dl Albumin/Globulin Ratio 1.4 (0.9-2) Lipase 40 (11-82) U/L TSH 5.476 H (0.300-4.500) uIu/ml Free T4 0.79 (0.61-1.60) ng/dl Urine Color Yellow Urine Appearance Clear (Clear) Urine pH 8.0 H (4.5-7.5) Ur Specific Cecil 1.014 (1.000-1.030) Urine Protein Negative (Negative) Urine Glucose (UA) Negative (Negative) Urine Ketones Negative (Negative) Urine Blood Negative (Negative) Urine Nitrite Negative (Negative) Urine Bilirubin Negative (Negative) Urine Urobilinogen Negative (Negative) Ur Leukocyte Esterase Negative (Negative) SARS-CoV-2, RNA, NAAT (NEGATIVE) Administered Medications Morphine Sulfate (Morphine Sulfate 4 Mg/Ml 1 Ml Carp\Vial) 4 mg IV Q15M PRN PRN Reason: Pain Stop: 12/24/21 11:06 Last Admin: 12/10/21 12:06 Dose: 4 mg Documented By: MELY Discontinued Medications Sodium Chloride (Nss) 500 mls @ 999 mls/hr IV .Q31M STA Stop: 12/10/21 11:37 Last Infusion: 12/10/21 12:37 Dose: 0 mls/hr Documented By: Admin: 12/10/21 12:06 Dose: 999 mls/hr Documented By: MELY Ioversol (Ioversol 350 Mg 100ml Prefilled Syringe) 94 ml IV ONCE ONE Stop: 12/10/21 11:55 Last Admin: 12/10/21 11:55 Dose: 94 ml Documented By: JUDD Ondansetron HCl (Ondansetron Inj 2 Mg/Ml 2 Ml Vial) 4 mg IV NOW STA Stop: 12/10/21 11:08 Last Admin: 12/10/21 12:06 Dose: 4 mg Documented By: MELY Imaging Data Radiologist's Impression: Abdomen/Pelvis CT 12/10/21 11:07 CT SCAN OF THE ABDOMEN AND PELVIS WITH IV CONTRAST CLINICAL HISTORY: Upper abdominal pain. COMPARISON STUDY: Abdominal CT dated 07/13/2018. TECHNIQUE: Following the IV administration of 94 cc of Optiray 350, CT scan of the abdomen and pelvis is performed from the lung bases to the proximal femora. Images are reviewed in the axial, sagittal, and coronal planes. IV contrast was administered without complication. A dose lowering technique was utilized adhering to the principles of ALARA. The examination is compromised by motion artifact. CT DOSE: 796.58 mGy.cm FINDINGS: Lung bases: The heart is enlarged and without pericardial effusion. The coronary arteries are densely calcified. There are small right and trace left pleural e ffusions with dependent atelectasis. There is a [id number] hiatal hernia. Circumferentially wall thickening is noted in the distal esophagus. Liver: The contrast-enhanced liver is normal in size, contour, and attenuation. There is no intrahepatic biliary ductal dilatation. The hepatic veins and portal veins are patent. There are numerous hepatic cysts which measure up to 5 cm. Additional subcentimeter hepatic hypodensities also likely represent cysts but are too small for definitive catheterization. A calcified granuloma is noted in the right lobe. Gallbladder: There are tiny calcified gallstones without CT evidence of acute cholecystitis. Spleen: Normal in size and attenuation. Pancreas: Unremarkable. Adrenal glands: Unremarkable. Kidneys: The contrast enhanced kidneys demonstrate cortical atrophy and are without hydronephrosis. The kidneys enhance symmetrically. Abdominal vasculature: There is advanced atherosclerotic calcification of the abdominal aorta. An infrarenal abdominal aortic aneurysm that measures 5.1 x 5.5 cm (AP x transverse). Bowel: There is rectosigmoid fecal retention and moderate constipation. No bowel obstruction is identified. There is advanced colonic diverticulosis without CT evidence of acute diverticulitis. Question focal luminal narrowing and wall thickening at the hepatic flexure on image #163 measuring approximately 3 cm in length. The appendix is well-visualized and normal. Peritoneum: There is no intraperitoneal free air or abdominal ascites. There is a fat-containing umbilical hernia. Lymphadenopathy: None. Pelvic viscera: The prostate gland is diminutive and heterogeneous noting median lobe hypertrophy. The bladder is distended. The wall is thickened/trabeculated indicating chronic outlet obstruction. Skeletal structures: The skeletal structures are osteopenic. There is moderate lumbosacral spondylosis. No lytic or blastic lesions are seen. IMPRESSION: 1. No acute infectious or inflammatory findings are identified in the abdomen or pelvis. 2. Rectosigmoid fecal retention and moderate constipation. 3. There is a 5.1 x 5.5 cm infrarenal abdominal aortic aneurysm. There is no CT evidence of impending rupture at the time of examination. Based on aneurysm size vascular surgical follow-up is recommended. 4. Question focal luminal narrowing and wall thickening involving the hepatic flexure of the colon. Although evaluation of this region is degraded by motion artifact, this is suspicious for underlying mucosal lesion. If not recently performed a colonoscopy is recommended for further assessment. 5. The distal esophagus appears circumferentially thick walled. Correlate clinically for evidence of esophagitis. If clinically warranted this could be further assessed by endoscopy. 6. Advanced colonic diverticulosis without CT evidence of acute diverticulitis. 7. Bladder distention. 8. Cardiomegaly with small right and trace left pleural effusions. 9. Cholelithiasis. 10. Additional findings as above. ACT 112: Positive. There are findings on this exam that require communication between the performing entity and the patient following Patient Test Result Information Act ([place] Act 112) guidelines. Electronically signed by: Jakub Chavis M.D. 12/10/2021 12:48 PM Chest X-Ray 12/10/21 11:08 SINGLE VIEW CHEST CLINICAL HISTORY: Epigastric abdominal pain. FINDINGS: An AP, portable, upright chest radiograph is compared to study dated 01/07/2018 and correlated with chest CT dated 07/13/2018. The examination is degraded by portable technique and patient rotation. The heart is enlarged n oting atherosclerotic calcification of the thoracic aorta. The pulmonary vasculature is noncongested. Emphysema and chronic interstitial thickening is similar to previous. Bibasilar opacities likely represent scarring/atelectasis. No large pleural effusion or pneumothorax is seen. The skeletal structures are osteopenic. The bony thorax is grossly intact. IMPRESSION: 1. Cardiomegaly and emphysema without radiographic evidence of congestive failu re. 2. Bibasilar opacities likely represent scarring/atelectasis. Clinical correlation will be required. ACT 112: Negative or not required by law. Electronically signed by: Jakub Chavis M.D. 12/10/2021 11:31 AM Discharge Plan Visit Data Chief Complaint: Cardiac Assessment ED Provider: Igor Snell Discharge Problem: Abdominal pain, epigastric, Atrial fibrillation, new onset, Abdominal aortic aneurysm, Esophagitis, Pleural effusion Patient Disposition: Being Evaluated by Hospitalist Forms Stand Alone Forms: [facility] Prescriptions Prescriptions: No Action levalbuterol HCl 1.25 mg/3 mL solution for nebulization 1.25 mg Inhalation QID PRN (Reason: Shortness Of Breath) Qty: 180 5RF levothyroxine 75 mcg tablet 75 mcg PO DAILY Qty: 30 3RF sertraline 100 mg tablet See Rx Instructions .ROUTE .COMPLEX Qty: 30 5RF Dose Instruction: TAKE 1 TABLET BY MOUTH DAILY. Rx Instructions: TAKE 1 TABLET BY MOUTH DAILY. rivastigmine 4.6 mg/24 hour patch 24 hour 4.6 mg transdermal DAILY Qty: 30 2RF quetiapine 25 mg tablet 25 mg PO .COMPLEX 30 Days Qty: 30 2RF Rx Instructions: 25 mg orally evening; esomeprazole magnesium 40 mg capsule,delayed release(DR/EC) 40 mg PO DAILY memantine 28 mg capsule,sprinkle,ER 24hr 28 mg PO DAILY Qty: 90 3RF Trelegy Ellipta 100-62.5-25 mcg blister with device 1 inh INH DAILY Qty: 60 3RF cholecalciferol (vitamin D3) [Vitamin D3] 1,000 unit Tablet 1,000 unit PO DAILY Referrals Referrals: [facility] [Primary Care Provider] -
--- NOTE | 2021-12-10 11:32 | XRay Report ---
SINGLE VIEW CHEST CLINICAL HISTORY: Epigastric abdominal pain. FINDINGS: An AP, portable, upright chest radiograph is compared to study dated 01/07/2018 and correla bonita with chest CT dated 07/13/2018. The examination is degraded by portable technique and patient rotat ion. The heart is enlarged noting atherosclerotic calcification of the thoracic aorta. The pulmonary vasculature is noncongested. Emphysema and chronic interstitial thickening is similar to previous. B ibasilar opacities likely represent scarring/atelectasis. No large pleural effusion or pneumothorax i s seen. The skeletal structures are osteopenic. The bony thorax is grossly intact. IMPRESSION: 1. Cardiomegaly and emphysema without radiographic evidence of congestive failure. 2. Bibasilar opacities likely represent scarring/atelectasis. Clinical correlation will be required. ACT 112: Negative or not required by law. Electronically signed by: Jakub Chavis M.D. 12/10/2021 11:31 AM
[2021-12-10 11:52] LABS: Basophils # (auto) 0.05 K/uL (0-0.2); Basophils % (auto) 0.5 %; Eosinophils # (auto) 0.01 K/uL (0-0.50); Eosinophils % (auto) 0.1 %; Hematocrit (blood only) 35.2 % (40.1-51.0); Hemoglobin 11.4 g/dl (14.0-18.0); Immature Granulocytes # (auto) 0.05 K/uL (0.00-0.02); Immature Granulocytes % (auto) 0.5 %; Lymphocytes # (auto) 0.85 K/uL (1.2-3.4); Lymphocytes % (auto) 7.9 %; Mean Corpuscular Hemoglobin 30.9 pg (25.0-34.0); Mean Corpuscular Hgb Conc 32.4 g/dL (32.0-36.0); Mean Corpuscular Volume 95.4 fL (80.0-100.0); Mean Platelet Volume 11.3 fL (9.4-12.4); Monocytes # (auto) 1.59 K/uL (0.24-0.82); Monocytes % (auto) 14.7 %; Neutrophils # (auto) 8.24 K/uL (1.4-6.5); Neutrophils % (auto) 76.3 %; Platelet Count 213 K/uL (130-400); RDW Coefficient of Variation 13.5 % (11.5-14.5); RDW Standard Deviation 47.4 fL (36.4-46.3); Red Blood Count 3.69 M/uL (4.63-6.08); White Blood Count 10.79 K/ul (4.8-10.8)
[2021-12-10] MEDS ORDERED: IOVERSOL 350 MG 100mL Prefilled Syringe IV ONE (11:54)
[2021-12-10 12:05] LABS: Partial Thromboplastin Time 26.3 Seconds (21.0-31.0); Prothrombin Time 10.5 Seconds (9.0-12.0)
[2021-12-10 12:11] LABS: Albumin Globulin Ratio 1.4 (0.9-2); Albumin Level 3.9 gm/dl (3.4-5.0); BUN Creatinine Ratio 16.5 (10-20); Bilirubin,Total 0.7 mg/dl (0.2-1.0); Calcium 9.1 mg/dl (8.5-10.1); Creatinine Clr Calc Pharmacy 44.1 ml/min; Est GFR (African American) 58.1 ml/min; Est GFR (Non-African American) 50.1 ml/min; Globulin 2.7 gm/dl (2.5-4.0); Magnesium 2.5 mg/dl (1.7-2.4); Total Protein 6.6 gm/dl (6.0-8.3)
[2021-12-10 12:17] LABS: Troponin I High Sensitivity 5.6 pg/ml (0-20)
[2021-12-10 12:26] LABS: Thyroid Stimulating Hormone 5.476 uIu/ml (0.300-4.500)
--- NOTE | 2021-12-10 12:50 | CT Scan Report ---
CT SCAN OF THE ABDOMEN AND PELVIS WITH IV CONTRAST CLINICAL HISTORY: Upper abdominal pain. COMPARISON STUDY: Abdominal CT dated 07/13/2018. TECHNIQUE: Following the IV administration of 94 cc of Optiray 350, CT scan of the abdomen and pelvi s is performed from the lung bases to the proximal femora. Images are reviewed in the axial, sagittal , and coronal planes. IV contrast was administered without complication. A dose lowering technique wa s utilized adhering to the principles of ALARA. The examination is compromised by motion artifact. CT DOSE: 796.58 mGy.cm FINDINGS: Lung bases: The heart is enlarged and without pericardial effusion. The coronary arteries are densely calcified. There are small right and trace left pleural effusions with dependent atelectasis. There is a [id number] hiatal hernia. Circumferentially wall thickening is noted in the distal esopha lita. Liver: The contrast-enhanced liver is normal in size, contour, and attenuation. There is no intrahepa tic biliary ductal dilatation. The hepatic veins and portal veins are patent. There are numerous hepa tic cysts which measure up to 5 cm. Additional subcentimeter hepatic hypodensities also likely repres ent cysts but are too small for definitive catheterization. A calcified granuloma is noted in the rig ht lobe. Gallbladder: There are tiny calcified gallstones without CT evidence of acute cholecystitis. Spleen: Normal in size and attenuation. Pancreas: Unremarkable. Adrenal glands: Unremarkable. Kidneys: The contrast enhanced kidneys demonstrate cortical atrophy and are without hydronephrosis. T he kidneys enhance symmetrically. Abdominal vasculature: There is advanced atherosclerotic calcification of the abdominal aorta. An inf rarenal abdominal aortic aneurysm that measures 5.1 x 5.5 cm (AP x transverse). Bowel: There is rectosigmoid fecal retention and moderate constipation. No bowel obstruction is ident ified. There is advanced colonic diverticulosis without CT evidence of acute diverticulitis. Question focal luminal narrowing and wall thickening at the hepatic flexure on image #163 measuring approxima tely 3 cm in length. The appendix is well-visualized and normal. Peritoneum: There is no intraperitoneal free air or abdominal ascites. There is a fat-containing umbi lical hernia. Lymphadenopathy: None. Pelvic viscera: The prostate gland is diminutive and heterogeneous noting median lobe hypertrophy. Th e bladder is distended. The wall is thickened/trabeculated indicating chronic outlet obstruction. Skeletal structures: The skeletal structures are osteopenic. There is moderate lumbosacral spondylosi s. No lytic or blastic lesions are seen. IMPRESSION: 1. No acute infectious or inflammatory findings are identified in the abdomen or pelvis. 2. Rectosigmoid fecal retention and moderate constipation. 3. There is a 5.1 x 5.5 cm infrarenal abdominal aortic aneurysm. There is no CT evidence of impending rupture at the time of examination. Based on aneurysm size vascular surgical follow-up is recommende d. 4. Question focal luminal narrowing and wall thickening involving the hepatic flexure of the colon. A lthough evaluation of this region is degraded by motion artifact, this is suspicious for underlying m ucosal lesion. If not recently performed a colonoscopy is recommended for further assessment. 5. The distal esophagus appears circumferentially thick walled. Correlate clinically for evidence of esophagitis. If clinically warranted this could be further assessed by endoscopy. 6. Advanced colonic diverticulosis without CT evidence of acute diverticulitis. 7. Bladder distention. 8. Cardiomegaly with small right and trace left pleural effusions. 9. Cholelithiasis. 10. Additional findings as above. ACT 112: Positive. There are findings on this exam that require communication between the performing entity and the patient following Patient Test Result Information Act ([place] Act 112) guidelines. Electronically signed by: Jakub Chavis M.D. 12/10/2021 12:48 PM
[2021-12-10 12:59] LABS: T4 Free Thyroxine 0.79 ng/dl (0.61-1.60)
--- NOTE | 2021-12-10 13:02 | Electrocardiogram Report ---
Test Reason : Blood Pressure : / mmHG Vent. Rate : 099 BPM Atrial Rate : 258 BPM P-R Int : 000 ms QRS Dur : 106 ms QT Int : 364 ms P-R-T Axes : 000 -33 037 degrees QTc Int : 467 ms Sinus rhythm with frequent and consecutive atrial ectopy Left axis deviation Abnormal ECG Confirmed by Armen Ndiaye ([id number]) on 12/10/2021 1:02:22 PM Referred By: Confirmed By:Donald Ndiaye
[2021-12-10 13:40] LABS: Appearance Urine Clear (Clear); Bilirubin Urine Negative (Negative); Blood Urine Negative (Negative); Color Urine Yellow; Glucose Urine UA Negative (Negative); Ketones Urine Negative (Negative); Leukocyte Esterase Urine Negative (Negative); Nitrite Urine Negative (Negative); Protein Urine Negative (Negative); Specific Gravity Urine 1.014 (1.000-1.030); Urobilinogen Urine Negative (Negative)
--- NOTE | 2021-12-10 14:05 | History & Physical Report ---
Date of Service December 10, 2021 Assessment & Plan (1) Chest pain: Plan: Chest pain - CXR: Cardiomegaly and emphysema without evidence of congestive failure. Bibasilar opacities. CTchest as noted below, small right and trace left pleural effusions.? Related Troponin high-sensitivity 5.6, repeat pending COVID-negative EKG: Normal sinus rhythm with ectopy, no ST segment elevation/depressions, LAD - Similar sx missing even missing a single dose of nexium (esomesoprazole). is not sure, thinks may have missed Continue Protonix, Pepcid Patient's pain is completely resolved at time of bedside assessment Irregular heartbeat Initially reported from rhythm strip as A. fib however EKG is clear P waves and some P waves are possible on rhythm strip on review. We will follow on telemetry overnight, suspect rhythm is actually sinus with ectopy. Defer anticoagulation at this time. TSH 5.4 with normal free T4 Troponin high-sensitivity 5.6, repeat pending Potassium normal Magnesium 2.5 Creatinine normal Hemoglobin 11.4 last 10.0 Rate 76 at bedside assessment Abdominal aortic aneurysm Last saw vascular 02/2021 for AAA and right upper quadrant pain due to gas. At that point aneurysm was noted to be 4.6 cm x 4.6cm, was scheduled for annual duplex No history of tobacco use Avoid all fluoroquinolones - Hx of pipe use in 20s, denies regular tobacco use and none in >[address] - [address]-C w/ contrast: 1. No acute infectious or inflammatory findings are identified in the abdomen or pelvis. 2. Rectosigmoid fecal retention and moderate constipation. 3. There is a 5.1 x 5.5 cm infrarenal abdominal aortic aneurysm. There is no CT evidence of impending rupture at the time of examination. Based on aneurysm size vascular surgical follow-up is recommended. 4. Question focal luminal narrowing and wall thickening involving the hepatic flexure of the colon. Although evaluation of this region is degraded by motion artifact, this is suspicious for underlying mucosal lesion. If not recently performed a colonoscopy is recommended for further assessment. 5. The distal esophagus appears circumferentially thick walled. Correlate clinically for evidence of esophagitis. If clinically warranted this could be further assessed by endoscopy. 6. Advanced colonic diverticulosis without CT evidence of acute diverticulitis. 7. Bladder distention. 8. Cardiomegaly with small right and trace left pleural effusions. 9. Cholelithiasis. - Per patients was last checked in 2019, was stable, and could follow 1y instead of q6m followup. Last check was Feb of this past year. Attempting to obtain record. Called [facility] to obtain data from last imaging. Confirmed last [facility] scan from 02/2021 is last imaging in [facility] system. Fusiform infrarenal AAA 4.6 cm AP, 4.6 cm TV on 02/28/2021 per verbal report Discussed with [facility] vascular on-call. Slightly less than 1 cm in 1 year, asymptomatic. Feel he is appropriate for outpatient follow-up as long as he remains otherwise asymptomatic, recommend scheduling vascular follow-up w Dr. Chambers on discharge. No acute interventions recommended at this time Dementia, chronic functional decline Recent admission for altered mental status with progressive dementia independent of precipitating factors Continue Zoloft, Seroquel Continue memantine [facility] memory unit patient At last admission was placed one-to-one, while did not meet 302 criteria which she was initially brought in for was also noted to not have decision-making capacity to leave [place] due to significant progression of underlying dementia and lack of safe environment to return home. Patient was unable to state a specific choice or give the risk/benefits of medical decision making as they apply to his condition. Discharge was secured to memory care unit at [facility] on 11/03 COPD Continue Trelegy/formulary equivalenrt - No wheezing on exam - Incentive [place]in PRN GERD Continue pantoprazole Some esophageal thickening noted on CT, patient denies any symptoms of this at bedside. Currently without pain, without difficulty swallowing outpt f/u if no sx - H2 BID CODE STATUS: DNR/DNI patient seen and examined, chart reviewed, case discussed with diet: Heart healthy and I agree with the assessment and plan as above except as otherwise noted Diet: HH, m&m pending speech Dispo: Med telemetry for cardiac eval, monitor for A. fib (2) Atrial ectopy: (3) Abdominal aortic aneurysm: (4) Dementia: (5) Esophagitis: (6) GERD (gastroesophageal reflux disease): (7) Hypothyroidism: (8) COPD (chronic obstructive pulmonary disease): History of Present Illness Primary Care Provider: [facility] 86-year-old male who presents with chest pain, epigastric/low substernal which resolved by time of provider assessment. Concern for new A. fib on telemetry strip. History is limited by patient's dementia. He is in pleasant in no acute distress. Sleeping comfortably, awakens easily. Is oriented to name only. Converses appropriately, but is not able to remember where he is or recent current events. He is not able to give any information regarding his medications or health history. Does endorse that he does not smoke, only used a pipe intermittently "when I was young". At time of assessment he denies any symptoms including chest pain, chest pressure, pain of any kind, fever, chills, lightheadedness, difficulty breathing. Patient's was called for collateral. She reports that he has been followed for a AAA which was last imaged in February and was noted to be stable at that time. Is unsure of the size. Has followed up with Dr. Chambers previously. She notes that they did not discuss what they would want to do should his aneurysm increase in size, but have just been following with serial imaging for now. She notes that she had talked with Balaji about CODE STATUS, and that he would not want aggressive resuscitation measures including CPR/intubation and a cardiac arrest and is DNR/DNI. She is not sure what he would want, or she would want, in the setting of surgical intervention for his aorta should it be recommended, but would like more information regarding this before making a decision. She does note that Balaji gets severe chest pain from a hiatal hernia should any doses of his Nexium be messed, and he may have missed a dose of [facility]. Confirms that he has no history of A. fib, no bleeding diathesis. Medications, surgical history, allergies reviewed in system and paperwork, limited by dementia of patient. CODE STATUS: DNR/DNI, confirmed with patient's Allergies Allergy/AdvReac Type Severity Reaction Status Date / Time albuterol Allergy Unknown short of Verified 10/14/21 01:25 breath lactose Allergy Unknown Verified 10/14/21 01:25 Home Medications Medication Instructions Recorded Confirmed Type cholecalciferol (vitamin D3) 25 1,000 unit PO DAILY 01/07/18 10/14/21 History mcg (1,000 unit) tablet (Vitamin D3) esomeprazole magnesium 40 mg 40 mg PO DAILY 10/31/18 10/14/21 History capsule,delayed release memantine 28 mg capsule 28 mg PO DAILY #90 ea 11/17/20 10/14/21 Rx sprinkle,extended release 24hr levalbuterol HCl 1.25 mg/3 mL 1.25 mg (3 mL) inhalation QID PRN 03/14/21 10/14/21 Rx solution for nebulization Shortness Of Breath #180 mL levothyroxine 75 mcg tablet 75 mcg PO DAILY #30 tabs 06/14/21 10/14/21 Rx fluticasone fur. 100 mcg-umeclid 1 inh inhalation DAILY #60 ea 06/17/21 10/14/21 Rx 62.5 mcg-vilant 25 mcg inhalat.powder (Trelegy Ellipta) sertraline 100 mg tablet See Rx Instructions .Route 08/25/21 10/14/21 Rx .COMPLEX #30 tabs rivastigmine 4.6 mg/24 hour 4.6 mg transdermal DAILY #30 ea 09/20/21 10/14/21 Rx transdermal patch quetiapine 25 mg tablet 25 mg PO .COMPLEX 30 days #30 tabs 10/07/21 10/14/21 Rx Past Med/Surg History Medical History (Updated 12/10/21 @ 14:55 by David Landis MD) COPD (chronic obstructive pulmonary disease) Dementia Diverticulitis Kidney stone Surgical History H/O knee surgery History of kidney surgery Previous back surgery S/P foot surgery Family History Mother Stroke Brother Prostate cancer Denies family history of Ovarian cancer Myocardial infarction Breast cancer Colorectal cancer Social History Smoking Status: Never smoker Hx Alcohol Use: No Hx Substance Use: No Preferred Language: Slovenian Communication Ability: Impaired Commutator Presser Required: No Beliefs That Will Affect Care: None Current Living Situation: Spouse current occupational status: retired Feels Safe at Home: Yes Dental Care, Regularly: No Seatbelt Use: always Sunscreen Use: No Assistive Devices: None Review of Systems Review of Systems: All systems reviewed & are unremarkable except as noted in Subjective Physical Exam Physical Exam: General: A&Ox1. NAD. Cooperative. HEENT: Atraumatic, normocephalic. PERLAA. Pulm: CTAB A&P. -wheezes, -rales, -rhonchi. Symmetrical chest rise. No increase in work of breathing. No respiratory distress. Cardiac: intermittently irregular, +SM. Radial pulses intact and symmetrical. Abdominal: Nontender, nondistended, soft. BS present. No pulsatile mass appreciated, limited by BMI? Ext: Warm, dry. Moving equally Results & Data Results & Data ([facility]) Vital Signs (Past 12 Hours) Vital Signs Temp Pulse Resp BP Pulse Ox O2 Del Method 12/10/21 12:30 107 H 13 95 Room Air 12/10/21 12:30 121/79 12/10/21 12:15 126/80 12/10/21 12:15 109 H 13 92 12/10/21 11:15 98 Room Air 12/10/21 11:15 36.7 C 111 H 18 139/88 93 Room Air PG Care Time/CCT Total # of Minutes Spent Total Time Spent with Patient: Total time spent is greater than 50% in coordination of care (as documented) at patient's floor/unit and/or counseling patient: Coding Level of Care Code INT OBSERVATION CARE 70M LVL 3 Diagnoses Chest pain R07.9 Atrial ectopy I49.1 Abdominal aortic aneurysm I71.4 Dementia F03.90 Esophagitis K20.90 GERD (gastroesophageal reflux disease) K21.9 Hypothyroidism E03.9 COPD (chronic obstructive pulmonary disease) J44.9
[2021-12-10] MEDS ORDERED: NITROGLYCERIN SL 0.4 MG/TAB TAB SL PRN (18:06)
[2021-12-10] MEDS ORDERED: FAMOTIDINE 20MG IV PUSH 20 MG/5 ML SYR IV STA (18:16)
[2021-12-10] MEDS: FAMOTIDINE 20 MG in SYRINGE 3 ML IV SCH (20:50)
[2021-12-10] MEDS: MEMANTINE HCL 10 MG TAB PO SCH (20:51)
[2021-12-10] MEDS: PANTOprazole 40 MG TAB PO SCH (20:51)
[2021-12-10] MEDS ORDERED: QUEtiapine FUMARATE 25 MG TABLET PO SCH (21:00)
[2021-12-11] MEDS ORDERED: LEVOTHYROXINE SODIUM 100 MCG TABLET PO SCH (06:30)
[2021-12-11 06:44] LABS: Basophils # (auto) 0.04 K/uL (0-0.2); Basophils % (auto) 0.4 %; Eosinophils # (auto) 0.03 K/uL (0-0.50); Eosinophils % (auto) 0.3 %; Hematocrit (blood only) 31.2 % (40.1-51.0); Immature Granulocytes # (auto) 0.06 K/uL (0.00-0.02); Immature Granulocytes % (auto) 0.7 %; Lymphocytes # (auto) 1.19 K/uL (1.2-3.4); Mean Corpuscular Hemoglobin 31.1 pg (25.0-34.0); Mean Corpuscular Hgb Conc 32.1 g/dL (32.0-36.0); Mean Corpuscular Volume 96.9 fL (80.0-100.0); Monocytes # (auto) 1.31 K/uL (0.24-0.82); Monocytes % (auto) 14.4 %; Neutrophils # (auto) 6.49 K/uL (1.4-6.5); Neutrophils % (auto) 71.2 %; Platelet Count 201 K/uL (130-400); RDW Coefficient of Variation 13.6 % (11.5-14.5); RDW Standard Deviation 48.5 fL (36.4-46.3); Red Blood Count 3.22 M/uL (4.63-6.08); White Blood Count 9.12 K/ul (4.8-10.8)
[2021-12-11 07:08] LABS: Troponin I High Sensitivity 5.9 pg/ml (0-20)
[2021-12-11 07:16] LABS: BUN Creatinine Ratio 14.5 (10-20); Calcium 8.3 mg/dl (8.5-10.1); Creatinine Clr Calc Pharmacy 42.8 ml/min; Est GFR (African American) 55.9 ml/min; Est GFR (Non-African American) 48.3 ml/min; Potassium 4.1 mmol/L (3.5-5.1)
[2021-12-11] MEDS: MEMANTINE HCL 10 MG TAB PO SCH (08:47)
[2021-12-11] MEDS: PANTOprazole 40 MG TAB PO SCH (08:47)
[2021-12-11] MEDS: FAMOTIDINE 20 MG in SYRINGE 3 ML IV SCH (08:52)
[2021-12-11] MEDS ORDERED: DONEPEZIL HCL 5 MG TAB PO SCH (09:00)
[2021-12-11] MEDS ORDERED: FLUTICASONE/VILANTEROL 100/25MCG 14 PUFFS/INHALER INH SCH (09:00)
[2021-12-11] MEDS ORDERED: UMECLIDINIUM BROMIDE 62.5MCG/BLISTER 7 PUFFS/INHALER INH SCH (09:00)
[2021-12-11] MEDS ORDERED: SERTRALINE HCL 100 MG TABLET PO SCH (09:00)
--- NOTE | 2021-12-11 15:41 | Discharge Summary ---
Date of Service December 11, 2021 Admission HPI Per Admitting Provider 86-year-old male who presents with chest pain, epigastric/low substernal which resolved by time of provider assessment. Concern for new A. fib on telemetry strip. History is limited by patient's dementia. He is in pleasant in no acute distress. Sleeping comfortably, awakens easily. Is oriented to name only. Converses appropriately, but is not able to remember where he is or recent current events. He is not able to give any information regarding his medications or health history. Does endorse that he does not smoke, only used a pipe intermittently "when I was young". At time of assessment he denies any symptoms including chest pain, chest pressure, pain of any kind, fever, chills, lightheadedness, difficulty breathing. Patient's was called for collateral. She reports that he has been followed for a AAA which was last imaged in February and was noted to be stable at that time. Is unsure of the size. Has followed up with Dr. Chambers previously. She notes that they did not discuss what they would want to do should his aneurysm increase in size, but have just been following with serial imaging for now. She notes that she had talked with Balaji about CODE STATUS, and that he would not want aggressive resuscitation measures including CPR/intubation and a cardiac arrest and is DNR/DNI. She is not sure what he would want, or she would want, in the setting of surgical intervention for his aorta should it be recommended, but would like more information regarding this before making a decision. She does note that Balaji gets severe chest pain from a hiatal hernia should any doses of his Nexium be messed, and he may have missed a dose of Nexium [facility]. Confirms that he has no history of A. fib, no bleeding diathesis. Medications, surgical history, allergies reviewed in system and paperwork, limited by dementia of patient. CODE STATUS: DNR/DNI, confirmed with patient's Principal Diagnosis GERD Discharge Exam The patient is awake, alert and oriented 3, well developed and well nourished, normocephalic and atraumatic, lying in bed and in no acute distress. HEENT--PERRL, EOMI, mucous membranes and oropharynx mildly dry Neck--supple. No JVD. No bruits. Thyroid normal, trachea midline, no adenopathy. Heart--normal S1 and S2. No murmurs, rubs or gallops. Lungs--clear bilaterally, no respiratory distress, no accessory muscle use. Abdomen--normal bowel sounds and soft. Mild epigastric and left sided abdominal pain Extremities--no cyanosis or clubbing. No edema. Dermatologic--normal skin turgor, normal color, no abnormal lymph nodes, no rash. Neurologic--cranial nerves II through XII grossly intact. Rheumatologic--normal range of motion. Psychiatric--normal affect. Discharge Data Allergies Allergy/AdvReac Type Severity Reaction Status Date / Time albuterol Allergy Unknown short of Verified 12/10/21 15:10 breath lactose Allergy Unknown Verified 12/10/21 15:10 Consultations 12/10/21 13:54 ED Decision to Admit Stat Ordered Studies 12/10/21 11:07 CT abd pelvis IV con only Stat Hospital Course (1) Chest pain: Chest pain - CXR: Cardiomegaly and emphysema without evidence of congestive failure. Bibasilar opacities. CTchest as noted below, small right and trace left pleural effusions.? Related Troponin high-sensitivity 5.6, repeat pending COVID-negative EKG: Normal sinus rhythm with ectopy, no ST segment elevation/depressions, LAD - Similar sx missing even missing a single dose of nexium (esomesoprazole). is not sure, thinks may have missed Continue Protonix, Pepcid Patient's pain is completely resolved at time of bedside assessment Irregular heartbeat Initially reported from rhythm strip as A. fib however EKG is clear P waves and some P waves are possible on rhythm strip on review. We will follow on telemetry overnight, suspect rhythm is actually sinus with ectopy. Defer anticoagulation at this time. TSH 5.4 with normal free T4 Troponin high-sensitivity 5.6, repeat pending Potassium normal Magnesium 2.5 Creatinine normal Hemoglobin 11.4 last 10.0 Rate 76 at bedside assessment Abdominal aortic aneurysm Last saw vascular 02/2021 for AAA and right upper quadrant pain due to gas. At that point aneurysm was noted to be 4.6 cm x 4.6cm, was scheduled for annual duplex No history of tobacco use Avoid all fluoroquinolones - Hx of pipe use in 20s, denies regular tobacco use and none in >30 [address] - [address]-C w/ contrast: 1. No acute infectious or inflammatory findings are identified in the abdomen or pelvis. 2. Rectosigmoid fecal retention and moderate constipation. 3. There is a 5.1 x 5.5 cm infrarenal abdominal aortic aneurysm. There is no CT evidence of impending rupture at the time of examination. Based on aneurysm size vascular surgical follow-up is recommended. 4. Question focal luminal narrowing and wall thickening involving the hepatic flexure of the colon. Although evaluation of this region is degraded by motion artifact, this is suspicious for underlying mucosal lesion. If not recently per formed a colonoscopy is recommended for further assessment. 5. The distal esophagus appears circumferentially thick walled. Correlate clinically for evidence of esophagitis. If clinically warranted this could be further assessed by endoscopy. 6. Advanced colonic diverticulosis without CT evidence of acute diverticulitis. 7. Bladder distention. 8. Cardiomegaly with small right and trace left pleural effusions. 9. Cholelithiasis. - Per patients was last checked in 2019, was stable, and could follow 1y instead of q6m followup. Last check was Feb of this past year. Attempting to obtain record. Called [facility] to obtain data from last imaging. Confirmed last [facility] scan from 02/2021 is last imaging in [facility] system. Fusiform infrarenal AAA 4.6 cm AP, 4.6 cm TV on 02/28/2021 per verbal report Discussed with [facility] vascular on-call. Slightly less than 1 cm in 1 year, asymptomatic. Feel he is appropriate for outpatient follow-up as long as he remains otherwise asymptomatic, recommend scheduling vascular follow-up w Dr. Chambers on discharge. No acute interventions recommended at this time Dementia, chronic functional decline Recent admission for altered mental status with progressive dementia independent of precipitating factors Continue Zoloft, Seroquel Continue memantine [facility] memory unit patient At last admission was placed one-to-one, while did not meet 302 criteria which she was initially brought in for was also noted to not have decision-making capacity to leave [facility] due to significant progression of underlying dementia and lack of safe environment to return home. Patient was unable to state a specific choice or give the risk/benefits of medical decision making as they apply to his condition. Discharge was secured to memory care unit at [facility] on 11/03 COPD Continue Trelegy/formulary equivalenrt - No wheezing on exam - Incentive [place] PRN GERD Continue pantoprazole Some esophageal thickening noted on CT, patient denies any symptoms of this at bedside. Currently without pain, without difficulty swallowing outpt f/u if no sx - H2 BID CODE STATUS: DNR/DNI patient seen and examined, chart reviewed, case discussed with diet: Heart healthy and I agree with the assessment and plan as above except as otherwise noted Diet: HH, m&m pending speech Dispo: Med telemetry for cardiac eval, monitor for A. fib (2) Atrial ectopy: (3) Abdominal aortic aneurysm: (4) Dementia: (5) Esophagitis: (6) GERD (gastroesophageal reflux disease): (7) Hypothyroidism: (8) COPD (chronic obstructive pulmonary disease): Total Time Total Time Spent Total Time Spent (In Minutes): 35 Discharge Plan Discharge Items Patient Disposition: [facility] Reason For Visit: CHEST PAIN R/O Discharge Diagnosis: GERD Activity: Resume your previous activity Non-emergency contact: Primary Care Provider Call non-emergency contact if: you have any medication questions Follow-up/Referrals: [facility] [Primary Care Provider] - Diet: Regular Addtl Attending Provider Instructions: please make appointment to follow up with your PCP Pending Studies at Discharge: No Stand-Alone Forms: My [employer], Smoking Cessation Skilled Items Patient informed of condition?: Yes DNR: Yes Discharge Level of Care: Other Communicable Disease: No Discharge Prognosis: Stable Lines: None Urinary Catheter: No Medications and DC Order Prescriptions: Continued quetiapine 25 mg tablet 25 mg PO QPM acetaminophen [Tylenol] 325 mg Tablet 650 mg PO Q6 PRN (Reason: Fever Or Pain) donepezil 5 mg tablet 5 mg PO DAILY alum-mag hydroxide-simeth 225-200-25 mg/5 mL Suspension 30 ml PO Q6 PRN (Reason: dyspepia) albuterol sulfate 2.5 mg /3 mL (0.083 %) solution for nebulization 2.5 mg continuous nebulization Q6 PRN (Reason: Shortness Of Breath) sertraline 100 mg tablet 100 mg PO QAM levothyroxine 100 mcg Tablet 100 mcg PO DAILY famotidine 20 mg Tablet 20 mg PO DAILY bisacodyl [Dulcolax (bisacodyl)] 10 mg Suppository 10 mg [facility] DIRECTED PRN (Reason: Bowel protocol) pantoprazole 40 mg tablet,delayed release (DR/EC) 40 mg PO DAILY promethazine 25 mg tablet 25 mg PO Q6 PRN (Reason: NAUSEA & VOMITING) memantine 10 mg tablet 10 mg PO BID cholecalciferol (vitamin D3) [Vitamin D3] 25 mcg (1,000 unit) Tablet 25 mcg PO DAILY Trelegy Ellipta 100-62.5-25 mcg blister with device 1 ea INHALATION DAILY Fluzone High Dose Quidrivalent 0.7 ml IM DIRECTED Rx Instructions: Inject on 12/12/2021 Maalox Multi [id number] 10 ml PO .TODAY Rx Instructions: Give 1 time dose Discontinued promethazine 25 mg/mL solution 25 mg IM Q6 PRN (Reason: Nausea) Rx Instructions: for 1 week Discharge Orders: Discharge Order (Routine); Ordered 12/11/21 Ordered By: Bhavik Rangel Admission Data Admit Date/Time: 12/10/21 15:05 Attending Provider: Bhavik Rangel Admit Provider: David Landis Primary Care Provider: [place] Other Providers: David Landis Coding Level of Care Code D/C DAY MANAGEMENT >30 MINS Diagnoses Chest pain R07.9 Atrial ectopy I49.1 Abdominal aortic aneurysm I71.4 Dementia F03.90 Esophagitis K20.90 GERD (gastroesophageal reflux disease) K21.9 Hypothyroidism E03.9 COPD (chronic obstructive pulmonary disease) J44.9 Time Spent (min) 35
== END 2021-12-11 19:57 | disposition home or self-care (01) ==
LOC: ED 10:58 → 2W 10:58 → SUATTDRO 15:05 → 2W 17:42